=== PATIENT | female | born 1990 | race Caucasian/White ===

== ENCOUNTER 2023-01-30 14:35 | Outpatient (OUT) | payer OTHER, SELFPAY ==
--- NOTE | 2023-01-30 14:36 | US_ITS ---
The [address] [address] Patient Name: MAGI KENNY MRN: [id number] date: 1990 Sex: F Assigned Patient Location: US Current Patient Location: US Accession/Order Number: [id number] Exam Date: 01/30/2023 14:37 Report Date: 01/30/2023 19:32 At the request of: ERI CORRALES Procedure: US OB transvaginal EXAMINATION: US OB transvaginal HISTORY: Positive test COMPARISON: No relevant comparison available. FINDINGS: GESTATIONAL SAC: Present and normal appearing. YOLK SAC: Present and normal appearing. POLE: Present and normal appearing. CARDIAC: Present. UTERUS: Normal size and appearance. OVARIES: Right: Corpus lutein cyst. Left: Normal. CERVIX: 4.9 cm in length and closed. CUL-DE-SAC: Normal. OTHER: Tiny subchorionic hematoma versus sequela of implantation bleeding. AGE BY LMP: 9 weeks 6 days GARCÍA BY LMP: 08/29/2023 AGE BY US CRL: 10 weeks 0 days GARCÍA BY US CRL: 08/28/2023 US/US OB transvaginal IMPRESSION: 1. Single live intrauterine . Electronically authenticated by: ROJELIO GARCÍA Date: 01/30/2023 19:32
== END 2023-01-30 14:36 | disposition home or self-care (01) ==
LOC: US 14:35
PROVIDERS: PCP Family Medicine; Visit Provider Obstetrics & Gynecology
DX: Z34.91 Encounter for supervision of normal pregnancy, unspecified, first trimester (principal); Z3A.10 10 weeks gestation of pregnancy; N92.6 Irregular menstruation, unspecified
CPT/HCPCS: 76817

== ENCOUNTER 2023-02-10 15:44 | Outpatient (OUT) | payer OTHER, SELFPAY ==
[2023-02-10 16:22] LABS: Basophils Absolute Auto 0.1 10^3/uL (0.0-0.1); Basophils Percent Auto 0.8 % (0.2-2.0); Eosinophils Absolute Auto 0.2 10^3/uL (0.0-0.7); Hemoglobin 13.8 g/dL (12.0-16.0); Immature Granulocytes Abs Auto 0.12 10^3/uL (0.00-0.03); Immature Granulocytes Pct Auto 1.1 % (0.0-0.5); Lymphocytes Absolute Auto 2.9 10^3/uL (1.2-3.8); Lymphocytes Percent Auto 25.9 % (20.5-60.0); Mean Corpuscular HGB Conc 34.5 g/dL (29.9-35.2); Mean Corpuscular Hemoglobin 31.9 pg (26.7-34.0); Mean Corpuscular Volume 92.6 fL (81.0-99.0); Mean Platelet Volume 8.6 fL (9.5-13.5); Monocytes Absolute Auto 0.7 10^3/uL (0.3-0.8); Monocytes Percent Auto 5.8 % (1.7-12.0); Neutrophils Absolute Auto 7.3 10^3/uL (1.4-6.5); Neutrophils Percent Auto 64.4 % (43.0-75.0); Platelet Count 317 10^3/uL (150-450); Red Blood Count 4.32 10^6/uL (4.20-5.40); Red Cell Distribution Width 12.3 % (11.0-15.0); White Blood Count 11.2 10^3/uL (4.0-11.0)
[2023-02-10 16:36] LABS: Estimated Average Glucose 100 mg/dL; Glycohemoglobin A1C 5.1 % (4.5-6.2)
[2023-02-10 16:56] LABS: Thyroid Stimulating Hormone 1.565 uIU/mL (0.358-3.740)
[2023-02-12 05:12] LABS: HCV Ab Non Reactive (Non Reactive); HIV Ab/p24 Ag Screen Non Reactive (Non Reactive); Rubella Antibodies, IgG 5.23 index (Immune >0.99)
[2023-02-12 06:12] LABS: HBsAg Screen Negative (Negative)
[2023-02-12 12:09] LABS: Rapid Plasma Reagin, Quant Non Reactive (NonRea<1:1)
== END 2023-02-10 15:45 | disposition home or self-care (01) ==
LOC: LAB 15:45
PROVIDERS: PCP Family Medicine; Visit Provider Obstetrics & Gynecology
DX: N91.2 Amenorrhea, unspecified (principal); Z34.80 Encounter for supervision of other normal pregnancy, unspecified trimester
CPT/HCPCS: 36415; 83036; 84443; 85025; 86592; 86706; 86762; 86803; 86850; 86900; 86901; 87086; 87389

== ENCOUNTER 2023-04-15 18:49 | Outpatient (OUT) | payer OTHER, SELFPAY ==
--- NOTE | 2023-04-15 18:59 | US_ITS ---
[address] [address] Patient Name: MAGI KENNY MRN: [id number] date: 1990 Sex: F Assigned Patient Location: US Current Patient Location: Accession/Order Number: [id number] Exam Date: 04/15/2023 19:06 Report Date: 04/16/2023 07:37 At the request of: ANKUSH KELLY Procedure: US OB anatomy EXAMINATION: US OB anatomy, US OB transvaginal HISTORY: SECOND TRIMESTER Z34.92 COMPARISON: No relevant comparison available. TECHNIQUE: Transabdominal sonographic examination was performed for obstetrical and evaluation. FINDINGS: Number: 1 Heart Rate: not measured Amniotic Fluid Volume: Subjectively normal Placental Location: ANTERIOR, grade 0. Placental edge 3.4 cm from the cervical os Cervix Length: 4.7 cm , closed Normal anatomy: Lateral ventricles, cerebellum, posterior fossa, nose, lips, orbits, four-chamber heart, RVOT, LVOT, diaphragm, stomach, kidneys, abdominal cord insertion, bladder, umbilical arteries, three-vessel cord, extremities Suboptimal visualization: Spine BIOMETRY: BPD: 4.7 cm 20 weeks 2 days , 29% HC: 18.5 cm 20 weeks 6 days, 46% AC: 15.6 cm 20 weeks 5 days, 44% FL: 3.2 cm 19 weeks 6 days, 17% EFW:351.5 grams; 12 ounces, 29% FL/AC: 20.5 FL/BPD: 67.8 HC/AC: 1.2 GESTATIONAL AGE: Age by EDC: 20 weeks 5 days Age by current US: 20 weeks 3 days GARCÍA by current US: 08/30/2023 GARCÍA by EDC: 08/28/2023 US/US OB anatomy IMPRESSION: Suboptimal visualization of the spine Low lying placenta *Reference: [employer] Practice Guideline for the performance of Obstetric Ultrasound Examinations, March 30, 2007. Electronically authenticated by: ABHISHEK PECK Date: 04/16/2023 07:37
--- NOTE | 2023-04-15 19:00 | US_ITS ---
[address] [address] Patient Name: MAGI KENNY MRN: [id number] date: 1990 Sex: F Assigned Patient Location: US Current Patient Location: Accession/Order Number: [id number] Exam Date: 04/15/2023 19:06 Report Date: 04/16/2023 07:37 At the request of: ANKUSH KELLY Procedure: US OB transvaginal EXAMINATION: US OB anatomy, US OB transvaginal HISTORY: SECOND TRIMESTER Z34.92 COMPARISON: No relevant comparison available. TECHNIQUE: Transabdominal sonographic examination was performed for obstetrical and evaluation. FINDINGS: Number: 1 Heart Rate: not measured Amniotic Fluid Volume: Subjectively normal Placental Location: ANTERIOR, grade 0. Placental edge 3.4 cm from the cervical os Cervix Length: 4.7 cm , closed Normal anatomy: Lateral ventricles, cerebellum, posterior fossa, nose, lips, orbits, four-chamber heart, RVOT, LVOT, diaphragm, stomach, kidneys, abdominal cord insertion, bladder, umbilical arteries, three-vessel cord, extremities Suboptimal visualization: Spine BIOMETRY: BPD: 4.7 cm 20 weeks 2 days , 29% HC: 18.5 cm 20 weeks 6 days, 46% AC: 15.6 cm 20 weeks 5 days, 44% FL: 3.2 cm 19 weeks 6 days, 17% EFW:351.5 grams; 12 ounces, 29% FL/AC: 20.5 FL/BPD: 67.8 HC/AC: 1.2 GESTATIONAL AGE: Age by EDC: 20 weeks 5 days Age by current US: 20 weeks 3 days GARCÍA by current US: 08/30/2023 GARCÍA by EDC: 08/28/2023 US/US OB transvaginal IMPRESSION: Suboptimal visualization of the spine Low lying placenta *Reference: [facility] Practice Guideline for the performance of Obstetric Ultrasound Examinations, March 30, 2007. Electronically authenticated by: ABHISHEK PECK Date: 04/16/2023 07:37
== END 2023-04-15 18:50 | disposition home or self-care (01) ==
PROVIDERS: PCP Family Medicine; Visit Provider Physician Assistant
DX: O44.42 Low lying placenta NOS or without hemorrhage, second trimester (principal); Z3A.20 20 weeks gestation of pregnancy
CPT/HCPCS: 76805; 76817

== ENCOUNTER 2023-05-13 16:59 | Outpatient (OUT) | payer OTHER, SELFPAY ==
--- NOTE | 2023-05-13 | US_ITS ---
The [address] [address] Patient Name: MAGI KENNY MRN: [id number] date: 1990 Sex: F Assigned Patient Location: US Current Patient Location: Accession/Order Number: [id number] Exam Date: 05/13/2023 17:38 Report Date: 05/14/2023 22:11 At the request of: ERI CORRALES Procedure: US OB incomplete anatomy EXAM: US OB incomplete anatomy HISTORY: follow up anatomy Z36.2 COMPARISON: Ultrasound OB anatomy 04/15/2023 TECHNIQUE: Transabdominal ultrasound FINDINGS: Presentation: Cephalic Heart rate: 156 bpm Anatomy: Cervical, thoracic, lumbar, and sacral spine demonstrated without appreciable abnormality. GA: 24 weeks 4 days GARCÍA: 08/29/2023 without appreciable anatomy. US/US OB incomplete anatomy IMPRESSION: 1. Single live intrauterine . 2. Adequate visualization of the spine; no appreciable abnormality. Electronically authenticated by: ROJELIO GARCÍA Date: 05/14/2023 22:11
== END 2023-05-13 17:00 | disposition home or self-care (01) ==
LOC: US 16:59
PROVIDERS: PCP Family Medicine; Visit Provider Obstetrics & Gynecology
DX: Z36.2 Encounter for other antenatal screening follow-up (principal)
CPT/HCPCS: 76815

== ENCOUNTER 2023-05-31 08:30 | Outpatient (OUT) | payer OTHER, SELFPAY ==
[2023-05-31 09:48] LABS: Basophils Absolute Auto 0.1 10^3/uL (0.0-0.1); Basophils Percent Auto 0.9 % (0.2-2.0); Eosinophils Absolute Auto 0.4 10^3/uL (0.0-0.7); Eosinophils Percent Auto 2.8 % (0.9-7.0); Hematocrit 37.1 % (36.0-48.0); Hemoglobin 12.1 g/dL (12.0-16.0); Immature Granulocytes Abs Auto 0.38 10^3/uL (0.00-0.03); Immature Granulocytes Pct Auto 2.7 % (0.0-0.5); Lymphocytes Absolute Auto 2.4 10^3/uL (1.2-3.8); Lymphocytes Percent Auto 17.3 % (20.5-60.0); Mean Corpuscular HGB Conc 32.6 g/dL (29.9-35.2); Mean Corpuscular Hemoglobin 32.4 pg (26.7-34.0); Mean Corpuscular Volume 99.2 fL (81.0-99.0); Mean Platelet Volume 8.7 fL (9.5-13.5); Monocytes Absolute Auto 0.8 10^3/uL (0.3-0.8); Monocytes Percent Auto 5.5 % (1.7-12.0); Neutrophils Absolute Auto 9.8 10^3/uL (1.4-6.5); Neutrophils Percent Auto 70.8 % (43.0-75.0); Platelet Count 362 10^3/uL (150-450); Red Blood Count 3.74 10^6/uL (4.20-5.40); Red Cell Distribution Width 12.6 % (11.0-15.0); White Blood Count 13.9 10^3/uL (4.0-11.0)
[2023-05-31 11:06] LABS: Glucose 1 Hour 191 mg/dL
== END 2023-05-31 08:31 | disposition home or self-care (01) ==
LOC: LAB 08:31
PROVIDERS: PCP Family Medicine; Visit Provider Obstetrics & Gynecology
DX: Z34.92 Encounter for supervision of normal pregnancy, unspecified, second trimester (principal)
CPT/HCPCS: 36415; 82950; 85025

== ENCOUNTER 2023-06-07 07:27 | Outpatient (OUT) | payer OTHER, SELFPAY ==
[2023-06-07 07:44] LABS: Glucose Fasting 89 mg/dL (74-106)
[2023-06-07 09:11] LABS: Glucose 1 Hour 188 mg/dL
[2023-06-07 10:18] LABS: Glucose 2 Hour 175 mg/dL
[2023-06-07 11:35] LABS: Glucose 3 Hour 121 mg/dL
== END 2023-06-07 07:28 | disposition home or self-care (01) ==
LOC: LAB 07:27
PROVIDERS: PCP Family Medicine; Visit Provider Obstetrics & Gynecology
DX: O99.810 Abnormal glucose complicating pregnancy (principal)
CPT/HCPCS: 36415; 82951; 82952

== ENCOUNTER 2023-06-16 07:44 | Outpatient (RCR) | payer OTHER, SELFPAY ==
[2023-06-16] MEDS: RHO(D) IMMUNE GLOBULIN 1,500 UNIT SYRINGE 1500 UNIT IM (15:42)
[2023-06-16 15:43] VITALS: BP 121/78; PULSE 96; RESP 18; TEMP 36.8; O2SAT 977
--- NOTE | 2023-06-16 15:44 | PC.NURSE ---
Pt is here for Rhogam injection, she had her blood work completed today. She has received this in previous pregnancies and tolerated well. Patient tolerated injection well and denies any complaints. She was discharged ambulatory.
== END 2023-06-16 16:00 | disposition home or self-care (01) ==
LOC: INF 07:44
PROVIDERS: PCP Family Medicine; Visit Provider Obstetrics & Gynecology
DX: O26.893 Other specified pregnancy related conditions, third trimester (principal); Z67.91 Unspecified blood type, Rh negative; Z3A.00 Weeks of gestation of pregnancy not specified
CPT/HCPCS: 36415; 86850; 86900; 86901; 96372; J2790

== ENCOUNTER 2023-07-15 07:15 | Outpatient (OUT) | payer OTHER, SELFPAY ==
--- OUTSIDE RECORDS SUMMARY | 2023-07-15 07:17 | XMS_ITS | CCD ---
Author Name Unknown Address [address] [place] [address] Organization [facility] Care Team Providers Care Health Information Internship Name Role Phone Mindy GREGORY Prema Primary Care Provider ANTONI ., DR HWANG Attending Unavailable ANTONI ., DR HWANG Consulting Unavailable ANTONI ., DR HWANG Primary Care Unavailable ANTONI ., DR HWANG Admitting Unavailable ANKUSH KELLY Attending Unavailable ANKUSH KELLY Attending Unavailable ANKUSH KELLY Attending Unavailable ERI VALLE Attending Unavailable Allergies Allergy Classification Reported Allergen(s) Allergy Type Date of Onset Reaction(s) Facility (2 sources) Penicillins; Translations: [Penicillins] Propensity to adverse reactions to drug 04-07-2017 [facility] Medications Current Medications Medication Drug Class(es) Dates Sig (Normalized) Sig (Original) ethinyl estradiol 0.035 mg / norgestimate 0.25 mg oral tablet (1 source) Progestin, Estrogen norgestimate -ethinyl estradiol ([place]aren[place]-Linyah) 0.25-35 MG-MCG tablet Take 1 tablet by mouth daily. 0 Active Problems Problem Classification Problem Date Documented Date Episodic/Chronic Immunizations and screening for infectious disease (1 source) Encounter for screening for human papillomavirus (HPV); Translations: [ENC SCREENING HUMAN PAPILLOMAVIRUS] Onset: 09-16-2022 Episodic Nonmalignant breast conditions (1 source) Cyst of right breast; Translations: [Solitary cyst of right breast] Episodic Other screening for suspected conditions (not mental disorders or infectious disease) (4 sources) Encounter for screening for malignant neoplasm of cervix; Translations: [ENC SCREENING MALIG NEOPLASM CERV] Onset: 09-10-2022 Episodic Results Test Name Value Interpretation Reference Range Facil ity PAP ACOG PANEL 2: 30 to 65on 09-19-2022 . . Normal [facility] Comment on above: Result Comment: Performed at: WB Performed By: #### [id number] #### [facility] [address] [address] [address] Eduardo Sandoval Age Gdln ACOG Testing 30-[address] [facility] Comment on above: Performed By: #### [id number] #### [facility] [address] [address] [address] Eduardo Sandoval DIAGNOSIS: Comment Normal [facility] Comment on above: Result Comment: NEGATIVE FOR INTRAEPITHE LIAL LESION OR MALIGNANCY. CELLULAR CHANGES ASSOCIATED WITH INFLAMMATION ARE PRESENT. Performed at: WB Performed By: #### [id number] #### [facility] [address] [address] [address] Eduardo Sandoval HPV Aptima Positive Abnormal Negative [facility] Comment on above: Result Comment: This nucleic acid amplif ication test detects fourteen high-risk HPV types (16,18,31,33,35,39,45,51,52,56,58,59,66,68) without differentiation. Performed at: =G Performed By: #### [id number] #### [facility] [address] [address] [address] Eduardo Sandoval HPV Genotype 16 Negative Normal Negative [facility] Comment on above: Performed By: #### [id number] #### [facility] [address] [address] [address] Eduardo Sandoval HPV Genotype 18,45 Negative Normal Negative [facility] Comment on above: Performed By: #### [id number] #### [facility] [address] [address] [address] Eduardo Sandoval HPV Genotype Reflex Comment Normal [facility] Comment on above: Result Comment: Criteria met, see HPV Ge notype results. Performed at: WB Performed By: #### [id number] #### [facility] [address] [place] [address] Dr. Eduardo Sandoval Methodology: Comment Normal [facility] Comment on above: Result Comment: This liquid based ThinPr ep(R) pap test was screened with the use of an image guided system. Performed at: WB Performed By: #### [id number] #### [facility] [address] [place] [address] Dr. Eduardo Sandoval Note: Comment Normal [facility] Comment on above: Result Comment: The Pap smear is a scree deuce test designed to aid in the detection of premalignant and malignant conditions of the uterine cervix. It is not a diagnostic procedure and should not be used as the sole means of detecting cervical cancer. Both false-positive and false-negative reports do occur. . Performed at: WB Performed By: #### [id number] #### [facility] [address] [place] [address] Dr. Eduardo Sandoval Performed by: Comment Normal [facility] Comment on above: Result Comment: Stephanie Rivera Cytoleigh chnologist Performed at: WB Performed By: #### [id number] #### [facility] [address] [place] [address] Dr. Eduardo Sandoval Specimen adequacy: Comment Normal [facility] Comment on above: Result Comment: Satisfactory for evaluat ion. Endocervical and/or squamous metaplastic cells (endocervical component) are present. Areas of partially obscuring inflammatory exudate are present. Performed at: WB Performed By: #### [id number] #### [facility] [address] [place] [address] Dr. Eduardo Sandoval Vital Signs Date Time Vital Sign Value Performing Clinician Faci lity 09-25-2021 12:49-0400 Body height 160 cm Dulce Coronado MD Work Phone: [facility] 09-25-2021 12:49-0400 Body mass index (BMI) [Ratio] 29.58 kg/m2 Dulce Coronado MD Work Phone: [facility] 09-25-2021 12:49-0400 Body temperature 98.49 [degF] Dulce Coronado MD Work Phone: [facility] 09-25-2021 12:49-0400 Body weight 75.75 kg Dulce Coronado MD Work Phone: [facility] 09-25-2021 12:49-0400 Diastolic blood pressure 70 mm[Hg] Dulce Coronado MD Work Phone: [facility] 09-25-2021 12:49-0400 Heart rate 80 /min Dulce Coroando MD Work Phone: [facility] 09-25-2021 12:49-0400 Systolic blood pressure 131 mm[Hg] Dulce Cornoado MD Work Phone: [facility] Encounters Encounter Date Encounter Type Care Provider Facility Start: 07-08-2023 End: 07-08-2023 ambulatory ANKUSH KELLY Not Available Start: 06-24-2023 End: 06-24-2023 ambulatory ERI VALLE Not Available Start: 06-10-2023 End: 06-10-2023 ambulatory ANKUSH KELLY Not Available Start: 05-27-2023 End: 05-27-2023 ambulatory ANKUSH KELLY Not Available Start: 09-10-2022 End: 09-10-[address] ERI VALLE . Facility: Start: 09-25-2021 End: 09-25-2021 Office outpatient new 30 minutes Dulce Coronado MD Work Phone: [facility] Plastic Surgery Comment on above: Breast cyst, right ( Primary Dx) Plan of Treatment Date Care Activity Detail Author Start: 02-28-2021 Influenza vaccination INFLUENZA VACC INE (#1) [facility] Start: 2010 Screening for malign ant neoplasm of cervix CERVICAL CANCER SCREENING DISCUSSION [facility] Start: 01-23-2008 Third diphtheria, te tanus and acellular pertussis (DTaP) vaccination TDAP (ADULT) [facility] Start: 2007 Tetanus vaccination TETANUS [facility] Start: 01-23-2004 HIV screening HIV SCREENING DISCUSSION [facility] Start: 1994 COVID-19 VACCINE (1) COVID-19 VACCIN E (1) [facility] Start: 1989 Hepatitis C antibody , confirmatory test HEPATITIS C VIRUS SCREENING [facility] Payers Date Payer Category Payer Unknown [id number] 2021 Private Health Insurance AIDAN MEREDITH [id number] 2021-Present [address] [place] [address] [id number] 1989 Unknown [id number] 1990 Unknown [id number] 1990 Unknown [id number] 1989 Unknown [id number] 1989 Unknown [id number] 1960 Unknown [id number] Social History Date Type Detail Facility Start: [facility]-2021 [facility] History of tobacco use Cigarette Smoker A [facility] Start: 09-25-2021 Tobacco use and exposure Smokeless tobacco non-user [facility] Start: 09-25-2021 Alcohol intake Current drinke r of alcohol (finding) [facility] Start: 09-25-2021 History SDOH Alcohol Comment Occasionally [facility] Start: 1990 Sex Assigned At Not on file A [facility] History of Present illness Narrative 09-25-2021 Celeste Jaramillo LPN - 09/25/2021 1:00 PM Hilton Coronado MD - 09/25/2021 1:00 PM EDT Note Date & Type Note Facility 09-25-2021 History of Presen t illness Narrative [facility] Review of Systems: Do you have any of the following: Chills, Fatigue, Fever or Night Sweats: no. Ear pain or eye discharge: no. Hearing loss or visual changes: no. Sore throat or chronic cough: no. Shortness of breath: no. Chest pain, swelling, or heart palpitations: no. Abdominal pain: no. Constipation or diarrhea: no. Heartburn or Nausea: no. Rash or skin problems: no. Dizziness or numbness: no. Headaches or Migraines: no. Seizures: no. Joint pain, joint swelling or muscle weakness: no. Bruise or bleed easily: yes. Any swollen lymph nodes: no. Subjective: Sangita Prather is an 31 y.o. female who presents for evaluation of Right breast infection from nipple piercing. Ductal cyst removal in April of 2021. She states she feels it's infected again. Seeping a creamy green fluid. Allergies Allergen Reactions Penicillins Current Outpatient Medications Medication Sig Dispense Refill norgestimate-ethinyl estradiol ([place]arengo-Linyah) 0.25-35 MG-MCG tablet Take 1 tablet by mouth daily. No current facility-administered medications for this visit. No past medical history on file. Past Surgical History: Procedure Laterality Date BREAST CYST ASPIRATION Right 2020 Family History Problem Relation Age of Onset Heart Disease - Other Maternal Grandfather Heart Disease - Other Paternal Grandfather Social History Socioeconomic History Marital status: Single Spouse name: Not on file Number of children: Not on file Years of education: Not on file Highest education level: Not on file Occupational History Not on file Tobacco Use Smoking status: Not on file Smokeless tobacco: Not on file Substance and Sexual Activity Alcohol use: Not on file Drug use: Not on file Sexual activity: Not on file Other Topics Concern Not on file Social History Narrative Not on file Social Determinants of Health Financial Resource Strain: Not on file Food Insecurity: Not on file Transportation Needs: Not on file Physical Activity: Not on file Stress: Not on file Social Connections: Not on file Intimate Partner Violence: Not on file Housing Stability: Not on file Review of Systems Pertinent items are noted in HPI. General Plastics Review of Systems: Do you have any of the following: Chills, Fatigue, Fever or Night Sweats: no. Ear pain or eye discharge: no. Hearing loss or visual changes: no. Sore throat or chronic cough: no. Shortness of breath: no. Chest pain, swelling, or heart palpitations: no. Abdominal pain: no. Constipation or diarrhea: no. Heartburn or Nausea: no. Rash or skin problems: no. Dizziness or numbness: no. Headaches or Migraines: no. Seizures: no. Joint pain, joint swelling or muscle weakness: no. Bruise or bleed easily: yes. Any swollen lymph nodes: no. Objective: BP 131/70 Pulse 80 Temp 98.5 F (36.9 C) (Temporal) Ht 1.6 m (5' 3 ) Wt 75.8 kg (167 lb) BMI 29.58 kg/m Patient with a healing scar on the superior areola which is still firm to touch. No cystic mass palpable beneath the areola. She has bilateral palpable fibrocystic breast. I suspect she has fibrocystic breasts and is perpetuating the inflammation from continuous expression of fluid from her nipple. I suggested not expressing fluid from the nipple. Warm compresses. Anti-inflammatory agents. She is to avoid contact of the nipple with bacteria load and to blot the nipple once a day with alcohol Indicated more surgery will only create further scar tissue and will begin to distort the architecture of the nipple I indicated she should see improvement by the end of the summer Assessment: Healing incision of right breast and patient has been continuously expressing the nipple Plan: The pt is to call with any further problems or questions, otherwise I will see them back PRN. documented in this encounter [facility] Evaluation note Note Date & Type Note Facility Evaluation note Diagnosis Breast cyst, right- Primary documented in this encounter [facility] Summary Purpose Family History No Family History Records FoundNo Family History Records Found Advance Directives No Advanced Directives Records FoundNo Advanced Directives Records Found Additional Source Comments Reason for Visit (unrecogniz ed section and content) Reason Comments New Patient Right breast infecti on from nipple piercing. Ductal cyst removal in April of 2021. She states she feels it's infected again. Seeping a creamy green fluid. Specialty Diagnoses / Procedures Referred By Reagan ponce Referred To Contact Plastic Surgery Diagnoses Breast pain History of dimpling of breast skin Eri Valle DO [address] [place] [address] Dulce Coronado MD [address] [place] [address] Referral ID Status Reason Start Date Expiration Date V isits Requested Visits Authorized [id number] Pending Review 09/14/2021 10/09/2022 1 1 Care Teams (unrecognized sec tion and content) Health Information Internship Relationship Specialty Start Date End Date MayelinomkarPrema DO [address] [place] [id number] PCP - General Family Medicine 09/25/21 INFORMATION SOURCE (unrecogn ized section and content) DATE CREATED AUTHOR 09/20/2022 [facility] DATE CREATED AUTHOR AUTHOR'S ORGANIZ ATION 07/09/2023 [facility] EPIC FOR RECORDS PERTAINING TO PATIENTS WHO ARE OR HAVE BEEN ENROLLED IN A CHEMICAL DEPENDENCY/SUBSTANCEABUSE PROGRAM, SOME INFORMATION MAY BE OMITTED. This clinical summary was aggregated from multiple sources. Caution should be exercised in using it in the provision of clinical care. This summary normalizes information from multiple sources, and as a consequence, information in this document may materially change the coding, format and clinical context of patient data. In addition, data may be omitted in some cases. CLINICAL DECISIONS SHOULD BE BASED ON THE PRIMARY CLINICAL RECORDS. [employer] provides no warranty or guarantee of the accuracy or completeness of information in this document.
--- NOTE | 2023-07-15 17:00 | US_ITS ---
[address] [address] Patient Name: MAGI KENNY MRN: [id number] date: 1990 Sex: F Assigned Patient Location: US Current Patient Location: Accession/Order Number: [id number] Exam Date: 07/15/2023 17:10 Report Date: 07/16/2023 07:08 At the request of: ANKUSH KELLY Procedure: US OB BPP w non-stress EXAMINATION: US OB BPP w non-stress HISTORY: EXCESSIVE GROWTH AFFECTING O36.63X0 COMPARISON: No relevant comparison available. TECHNIQUE: Ultrasound biophysical profile was performed in the radiology department. non-reactive stress testing was performed by nursing staff in the birthing center. FINDINGS: BREATHING MOVEMENTS: 2.0 GROSS BODY MOVEMENTS: 2.0 TONE: 2.0 QUALITATIVE AMNIOTIC FLUID VOLUME: 2.0 PRESENTATION: CEPHALIC HEART RATE: 150.8 bpm H.B./min AMNIOTIC FLUID VOLUME: 18.6 cm cm GESTATIONAL AGE: 33 weeks 4 days CONCLUSION: Total biophysical profile score: 8.0 Electronically authenticated by: ABHISHEK PECK Date: 07/16/2023 07:08
--- NOTE | 2023-07-15 17:01 | US_ITS ---
[address] [address] Patient Name: MAGI KENNY MRN: [id number] date: 1990 Sex: F Assigned Patient Location: [facility] Current Patient Location: Accession/Order Number: [id number] Exam Date: 07/15/2023 17:10 Report Date: 07/16/2023 07:10 At the request of: ANKUSH KELLY Procedure: US OB growth EXAMINATION: US OB growth HISTORY: EXCESSIVE GROWTH AFFECTING O36.63X0 COMPARISON: No relevant comparison available. FINDINGS: Heart Rate: 150.8 bpm Amniotic Fluid Volume: 18.6 cm Number: 1.0 Position: Cephalic presentation, longitudinal lie Maximum Vertical Pocket: 5.9 cm cm 4.7 cm cm 4.6 cm cm 3.4 cm cm BIOMETRY: BPD: 8.8 cm cm; 35 weeks 3 days; 90% HC: 32.4 cmcm; 36 weeks 5 days , 87% AC: 29.2 cm cm; 33 weeks 2 days, 43% FL: 6.3 cm cm; 32 weeks 5 days; 17.9 % % EFW: 2235.5 grams, 4 lbs. 15 oz., 43% FL/AC: 21.6 FL/BPD: 72.1 HC/AC: 1.1 GESTATIONAL AGE: Age by EDC: 33 weeks 4 days GARCÍA by EDC: 08/29/2023 Age by US: 34 weeks 4 days GARCÍA by US: 08/22/2023 US/US OB growth IMPRESSION: Normal interval growth Electronically authenticated by: ABHISHEK PECK Date: 07/16/2023 07:10
[2023-07-15 17:55] VITALS: BP 119/69; PULSE 89
== END 2023-07-15 18:29 | disposition home or self-care (01) ==
LOC: US 07:15 → FBC 16:59
PROVIDERS: PCP Family Medicine; Visit Provider Physician Assistant
DX: O36.63X0 Maternal care for excessive fetal growth, third trimester, not applicable or unspecified (principal); Z3A.33 33 weeks gestation of pregnancy
CPT/HCPCS: 76816; 76818

== ENCOUNTER 2023-07-18 07:17 | Outpatient (OUT) | payer OTHER, SELFPAY ==
--- OUTSIDE RECORDS SUMMARY | 2023-07-18 07:20 | XMS_ITS | CCD ---
Author Name Unknown Address [address] [place] [address] Organization [facility] Care Team Providers Care Art Editor Name Role Phone Mindy GREGORY Prema Primary Care Provider ANTONI ., DR HWANG Attending Unavailable ANTONI ., DR HWNAG Consulting Unavailable ANTONI ., DR HWANG Primary Care Unavailable ANTONI ., DR HWANG Admitting Unavailable ANKUSH KELLY Attending Unavailable ANKUSH KELLY Attending Unavailable ANKUSH KELLY Attending Unavailable ERI VALLE Attending Unavailable Allergies Allergy Classification Reported Allergen(s) Allergy Type Date of Onset Reaction(s) Facility (2 sources) Penicillins; Translations: [Penicillins] Propensity to adverse reactions to drug 04-07-2017 [facility] Medications Current Medications Medication Drug Class(es) Dates Sig (Normalized) Sig (Original) ethinyl estradiol 0.035 mg / norgestimate 0.25 mg oral tablet (1 source) Progestin, Estrogen norgestimate -ethinyl estradiol ([place]ah) 0.25-35 MG-MCG tablet Take 1 tablet by [...] to 64on 09-19-2022 . . Normal [facility] Comment on above: Result Comment: Performed at: WB Performed By: #### [id number] #### [facility] [address] [address] [address] Eduardo Sandoval Age Gdln ACOG Testing 30-65 Normal [facility] Comment on above: Performed By: #### [id number] #### [facility] [address] [address] [address] Eduardo Sandoval DIAGNOSIS: Comment Normal [facility] Comment on above: Result Comment: NEGATIVE FOR INTRAEPITHE LIAL LESION OR MALIGNANCY. CELLULAR CHANGES ASSOCIATED WITH INFLAMMATION ARE PRESENT. Performed at: WB Performed By: #### [id number] #### [facility] [address] [address] [address] Eduardo Sandoval HPV Aptima Positive Abnormal Negative [facility] Comment on above: Result Comment: This nucleic acid amplif ication test detects fourteen high-risk HPV types (16,18,31,33,35,39,45,51,52,56,58,59,66,68) without differentiation. Performed at: =G Performed By: #### [id number] #### [facility] [address] [address] [address] Eduardo Sandoval HPV Genotype 16 Negative Normal Negative [facility] Comment on above: Performed By: #### [id number] #### [facility] [address] [address] [address] Eduardo Sandoval HPV Genotype 18,45 Negative Normal Negative [facility] Comment on above: Performed By: #### [id number] #### [facility] [address] [address] [address] Eduardo Sandoval HPV Genotype Reflex Comment Normal [facility] Comment on above: Result Comment: Criteria met, see HPV Ge notype results. Performed at: WB Performed By: #### [id number] #### [facility] [address] [place] [address] Dr. Eduardo Sandoval Methodology: Comment Normal [facility] Comment on above: Result Comment: This liquid based ThinPr ep(R) pap test was screened with the use of an image guided system. Performed at: WB Performed By: #### [id number] #### [facility] [address] [place] [address] Dr. Eduardo Sandoval Note: Comment Normal [facility] Comment on above: Result Comment: The Pap smear is a scree deuce test designed to aid in the detection of premalignant and malignant conditions of the uterine cervix. It is not a diagnostic procedure and should not be used as the sole means of detecting cervical cancer. Both false-positive and false-negative reports do occur. . Performed at: WB Performed By: #### [id number] #### [facility] [address] [place] [address] Dr. Eduardo Sandoval Performed by: Comment Normal [facility] Comment on above: Result Comment: Stephanie Rivera Cytoleigh chnologist Performed at: WB Performed By: #### [id number] #### [facility] [address] [place] [address] Dr. Eduardo Sandoval Specimen adequacy: Comment Normal [facility] Comment on above: Result Comment: Satisfactory for evaluat ion. Endocervical and/or squamous metaplastic cells (endocervical component) are present. Areas of partially obscuring inflammatory exudate are present. Performed at: WB Performed By: #### [id number] #### [facility] [address] [place] [address] Dr. Eduardo Sandoval Vital Signs Date Time Vital Sign Value Performing Clinician Faci lity 09-25-2021 12:49-0400 Body height 160 cm Dulce Coronado MD Work Phone: [facility] 09-25-2021 12:49-0400 Body mass index (BMI) [Ratio] 29.58 kg/m2 Dulce Coronado MD Work Phone: [facility] 09-25-2021 12:49-0400 Body temperature 98.49 [degF] Dulce Coronado MD Work Phone: [facility] 09-25-2021 12:49-0400 Body weight 75.75 kg Dulce Coronado MD Work Phone: [facility] 09-25-2021 12:49-0400 Diastolic blood pressure 70 mm[Hg] Dulce Coronado MD Work Phone: [facility] 09-25-2021 12:49-0400 Heart rate 80 /min Dulce Coronado MD Work Phone: [facility] 09-25-2021 12:49-0400 Systolic blood pressure 131 mm[Hg] Dulce Coronado MD Work Phone: [facility] Encounters Encounter Date Encounter Type Care Provider [...] 30 minutes Dulce Coronado MD Work Phone: [facility] Plastic Surgery Comment on above: Breast cyst, right ( Primary Dx) Plan of Treatment Date Care Activity Detail Author Start: 02-28-2021 Influenza vaccination INFLUENZA VACC INE (#1) [facility] Start: 2010 Screening for malign ant neoplasm of cervix CERVICAL CANCER SCREENING DISCUSSION [facility] Start: 01-23-2008 Third diphtheria, te tanus and acellular pertussis (DTaP) vaccination TDAP (ADULT) [facility] Start: 2007 Tetanus vaccination TETANUS [facility] Start: 01-23-2004 HIV screening HIV SCREENING DISCUSSION [facility] Start: 1994 COVID-19 VACCINE (1) COVID-19 VACCIN E (1) [facility] Start: 1989 Hepatitis C antibody , confirmatory test HEPATITIS C VIRUS SCREENING [facility] Payers Date Payer Category Payer Unknown [id number] 2021 Private Health Insurance AIDAN MEREDITH [id number] 2021-Present [address] [place] [address] [id number] 1989 Unknown [id number] 1989 Unknown [id number] 1989 Unknown [id number] 1989 Unknown [id number] 1989 Unknown [id number] 1959 Unknown [id number] Social History Date Type Detail Facility [facility]: [facility] History of tobacco use Cigarette Smoker [facility] Start: 09-25-2021 Tobacco use and exposure Smokeless tobacco non-user [facility] Start: 09-25-2021 Alcohol intake Current drinke r of alcohol (finding) [facility] Start: 09-25-2021 History SDOH Alcohol Comment Occasionally [facility] Start: 1990 Sex Assigned At Not on file [facility] History of Present illness Narrative 09-25-2021 [...] Medications Medication Sig Dispense Refill norgestimate-ethinyl estradiol ([place]-Linyah) 0.25-35 MG-MCG tablet Take 1 tablet by [...] them back PRN. documented in this encounter [facility] Evaluation note Note Date & Type Note Facility Evaluation note Diagnosis Breast cyst, right- Primary documented in this encounter [facility] Summary Purpose Family History No Family History [...] breast skin Eri Valle DO [address] [place] [address] Dulce Coronado MD [address] [place] [address] Referral ID Status Reason Start Date Expiration Date V isits Requested Visits Authorized [id number] Pending Review 09/14/2021 10/09/2022 1 1 Care Teams (unrecognized sec tion and content) Art Editor Relationship Specialty Start Date End Date MayelinomkarPrema DO [address] [place] [id number] PCP - General Family Medicine 09/25/21 INFORMATION SOURCE (unrecogn ized section and content) DATE CREATED AUTHOR 09/20/2022 [facility] DATE CREATED AUTHOR AUTHOR'S ORGANIZ ATION 07/09/2023 [facility] EPIC FOR RECORDS PERTAINING [...] BE BASED ON THE PRIMARY CLINICAL RECORDS. [email or web address] provides no warranty or guarantee of the accuracy or completeness of information in this document.
[2023-07-18 18:11] VITALS: BP 138/62; PULSE 112; RESP 16
[2023-07-18 18:33] VITALS: TEMP 36.7
== END 2023-07-18 18:36 | disposition home or self-care (01) ==
LOC: FBCO 07:18 → FBC 18:05
PROVIDERS: PCP Family Medicine; Visit Provider Obstetrics & Gynecology
DX: O36.63X0 Maternal care for excessive fetal growth, third trimester, not applicable or unspecified (principal)
CPT/HCPCS: 59025

== ENCOUNTER 2023-07-22 07:27 | Outpatient (OUT) | payer OTHER, SELFPAY ==
--- OUTSIDE RECORDS SUMMARY | 2023-07-22 07:30 | XMS_ITS | CCD ---
Author Name Unknown Address [address] [place] [address] Organization [facility] Care Team Providers Care Fitness Plan Coordinator Name Role Phone Mindy GREGORY Prema Primary [...] Propensity to adverse reactions to drug 04-07-2017 [facility] Medications Current Medications Medication Drug Class(es) Dates Sig (Normalized) Sig (Original) ethinyl estradiol 0.035 mg / norgestimate 0.25 mg oral tablet (1 source) Progestin, Estrogen norgestimate -ethinyl estradiol ([place]) 0.25-35 MG-MCG tablet Take 1 tablet by [...] to 64on 09-19-2022 . . Normal [facility] Comment on above: Result Comment: Performed at: WB Performed By: #### [id number] #### [facility] [address] [address] [address] Eduardo Sandoval Age Gdln ACOG Testing 30-65 Normal [facility] Comment on above: Performed By: #### [id number] #### [facility] [address] [address] [address] Eduardo Sandoval DIAGNOSIS: Comment Normal [facility] Comment on above: Result Comment: NEGATIVE FOR INTRAEPITHE LIAL LESION OR MALIGNANCY. CELLULAR CHANGES ASSOCIATED WITH INFLAMMATION ARE PRESENT. Performed at: WB Performed By: #### [id number] #### [facility] [address] [address] [address] Eduardo Sandoval HPV Aptima Positive Abnormal Negative [facility] Comment on above: Result Comment: This nucleic acid amplif ication test detects fourteen high-risk HPV types (16,18,31,33,35,39,45,51,52,56,58,59,66,68) without differentiation. Performed at: =G Performed By: #### [id number] #### [facility] [address] [address] [address] Eduardo Sandoval HPV Genotype 16 Negative Normal Negative [facility] Comment on above: Performed By: #### [id number] #### [facility] [address] [address] [address] Eduardo Sandoval HPV Genotype 18,45 Negative Normal Negative [facility] Comment on above: Performed By: #### [id number] #### [facility] [address] [address] [address] Eduardo Sandoval HPV Genotype Reflex Comment Normal [facility] Comment on above: Result Comment: Criteria met, see HPV Ge notype results. Performed at: WB Performed By: #### [id number] #### [facility] [address] [place] [address] Dr. Eduardo Sandoval Methodology: Comment Normal [facility] Comment on above: Result Comment: This liquid based ThinPr ep(R) pap test was screened with the use of an image guided system. Performed at: WB Performed By: #### [id number] #### [facility] [address] [place] [address] Dr. Eduardo Sandoval Note: Comment Normal [facility] Comment on above: Result Comment: The Pap smear is a scree deuce test designed to aid in the detection of premalignant and malignant conditions of the uterine cervix. It is not a diagnostic procedure and should not be used as the sole means of detecting cervical cancer. Both false-positive and false-negative reports do occur. . Performed at: WB Performed By: #### [id number] #### [facility] [address] [place] [address] Dr. Eduardo Sandoval Performed by: Comment Normal [facility] Comment on above: Result Comment: Stephanie Rivera Cytoleigh chnologist Performed at: WB Performed By: #### [id number] #### [facility] [address] [place] [address] Dr. Eduardo Sandoval Specimen adequacy: Comment Normal [facility] Comment on above: Result Comment: Satisfactory for evaluat ion. Endocervical and/or squamous metaplastic cells (endocervical component) are present. Areas of partially obscuring inflammatory exudate are present. Performed at: WB Performed By: #### [id number] #### [facility] [address] [place] [address] Dr. Eduardo Sandoval Vital Signs Date Time Vital Sign Value Performing Clinician Faci lity 09-25-2021 12:49-0400 Body height 160 cm Dulce Coronado MD Work Phone: [facility] 09-25-2021 12:49-0400 Body mass index (BMI) [Ratio] 29.58 kg/m2 Dulce Coronado MD Work Phone: [facility] 09-25-2021 12:49-0400 Body temperature 98.49 [degF] Dulce Coronado MD Work Phone: [facility] 09-25-2021 12:49-0400 Body weight 75.75 kg Dulce Coronado MD Work Phone: [facility] 09-25-2021 12:49-0400 Diastolic blood pressure 70 mm[Hg] Dulce Coronado MD Work Phone: [facility] 09-25-2021 12:49-0400 Heart rate 80 /min Dulce Coronado MD Work Phone: [facility] 09-25-2021 12:49-0400 Systolic blood pressure 131 mm[Hg] Dulce Coronado MD Work Phone: [facility] Encounters Encounter Date Encounter Type Care [...] 30 minutes Dulce Coronado MD Work Phone: [facility] Plastic Surgery Comment on above: Breast cyst, right ( Primary Dx) Plan of Treatment Date Care Activity Detail Author Start: 02-28-2021 Influenza vaccination INFLUENZA VACC INE (#1) [facility] Start: 2010 Screening for malign ant neoplasm of cervix CERVICAL CANCER SCREENING DISCUSSION [facility] Start: 01-23-2008 Third diphtheria, te tanus and acellular pertussis (DTaP) vaccination TDAP (ADULT) [facility] Start: 2007 Tetanus vaccination TETANUS [facility] Start: 01-23-2004 HIV screening HIV SCREENING DISCUSSION [facility] Start: 1994 COVID-19 VACCINE (1) COVID-19 VACCIN E (1) [facility] Start: 1989 Hepatitis C antibody , confirmatory test HEPATITIS C VIRUS SCREENING [facility] Payers Date Payer Category Payer Unknown [id number] 2021 Private Health Insurance AIDAN MEREDITH [id number] 2021-Present [address] [place] [address] [id number] 1989 Unknown [id number] 1989 Unknown [id number] 1989 Unknown [id number] 1989 Unknown [id number] 1989 Unknown [id number] 1959 Unknown [id number] Social History Date Type Detail Facility [facility]: [facility] History of tobacco use Cigarette Smoker [facility] Start: 09-25-2021 Tobacco use and exposure Smokeless tobacco non-user [facility] Start: 09-25-2021 Alcohol intake Current drinke r of alcohol (finding) [facility] Start: 09-25-2021 History SDOH Alcohol Comment Occasionally [facility] Start: 1990 Sex Assigned At Not on file [facility] History of Present illness Narrative 09-25-2021 [...] Medications Medication Sig Dispense Refill norgestimate-ethinyl estradiol ([place]) 0.25-35 MG-MCG tablet Take 1 tablet by [...] them back PRN. documented in this encounter [facility] Evaluation note Note Date & Type Note Facility Evaluation note Diagnosis Breast cyst, right- Primary documented in this encounter [facility] Summary Purpose Family History No Family [...] breast skin Eri Valle DO [address] [facility] [address] [place] [address] Dulce Coronado MD [address] [place] [address] Referral ID Status Reason Start Date Expiration Date V isits Requested Visits Authorized [id number] Pending Review 09/14/2021 10/09/2022 1 1 Care Teams (unrecognized sec tion and content) Fitness Plan Coordinator Relationship Specialty Start Date End Date MayelinomkarPrema DO [address] [place] [id number] PCP - General Family Medicine 09/25/21 INFORMATION SOURCE (unrecogn ized section and content) DATE CREATED AUTHOR 09/20/2022 [facility] DATE CREATED AUTHOR AUTHOR'S ORGANIZ ATION 07/09/2023 [facility] dical Specialists EPIC FOR RECORDS PERTAINING [...] BE BASED ON THE PRIMARY CLINICAL RECORDS. [employer] provides no warranty or guarantee of the accuracy or completeness of information in this document.
--- NOTE | 2023-07-22 17:10 | US_ITS ---
[address] [address] Patient Name: MAGI KENNY MRN: [id number] date: 1990 Sex: F Assigned Patient Location: [facility] Current Patient Location: Accession/Order Number: [id number] Exam Date: 07/22/2023 17:15 Report Date: 07/23/2023 06:22 At the request of: ANKUSH KELLY Procedure: US OB BPP w non-stress EXAMINATION: US OB BPP w non-stress HISTORY: EXCESSIVE GROWTH AFFECTING [id number] COMPARISON: Ultrasound OB biophysical 07/15/2023 TECHNIQUE: Ultrasound biophysical profile was performed in the radiology department. BREATHING MOVEMENTS: 2.0 GROSS BODY MOVEMENTS: 2.0 TONE: 2.0 QUALITATIVE AMNIOTIC FLUID VOLUME: 2.0 PRESENTATION: CEPHALIC HEART RATE: 130.4 bpm bpm. AMNIOTIC FLUID VOLUME: 17.3 cm GESTATIONAL AGE: 34 weeks 4 days CONCLUSION: Total biophysical profile score 8.0. Electronically authenticated by: ROJELIO GARCÍA Date: 07/23/2023 06:22
[2023-07-22 17:48] VITALS: BP 114/57; PULSE 107
== END 2023-07-22 18:15 | disposition home or self-care (01) ==
LOC: US 07:28 → FBC 16:53
PROVIDERS: PCP Family Medicine; Visit Provider Physician Assistant
DX: O36.63X1 Maternal care for excessive fetal growth, third trimester, fetus 1 (principal); Z3A.34 34 weeks gestation of pregnancy
CPT/HCPCS: 76818

== ENCOUNTER 2023-07-25 07:15 | Outpatient (OUT) | payer OTHER, SELFPAY ==
--- OUTSIDE RECORDS SUMMARY | 2023-07-25 07:19 | XMS_ITS | CCD ---
Author Name Unknown Address [address] [facility] [address] [place] [address] Organization [facility] Care Team Providers Care White Hat Hacker Name Role Phone Mindy GREGORY Prema Primary Care Provider ANTONI ., DR HWANG Attending Unavailable ANTONI ., DR HWANG Consulting Unavailable ANTONI ., DR HWANG Primary Care Unavailable ANTONI ., DR HWANG Admitting Unavailable ANKUSH KELLY Attending Unavailable ERI VALLE Attending Unavailable ANKUSH KELLY Attending Unavailable ANKUSH KELLY Attending Unavailable ERI VALLE Attending Unavailable Allergies Allergy Classification Reported Allergen(s) Allergy Type Date of Onset Reaction(s) Facility (2 sources) Penicillins; Translations: [Penicillins] Propensity to adverse reactions to drug 04-07-2017 [facility] Medications Current Medications Medication Drug Class(es) Dates Sig (Normalized) Sig (Original) ethinyl estradiol 0.035 mg / norgestimate 0.25 mg oral tablet (1 source) Progestin, Estrogen norgestimate -ethinyl estradiol ([place]) 0.25-35 MG-MCG tablet Take 1 tablet by [...] 30 to 65on 09-19-2022 . . Normal [facility] Comment on above: Result Comment: Performed at: WB Performed By: #### [id number] #### [facility] [address] [address] [address] Eduardo Sandoval Age Gdln ACOG Testing 30-65 Normal [facility] Comment on above: Performed By: #### [id number] #### [facility] [address] [address] [address] Eduardo Sandoval DIAGNOSIS: Comment Normal [facility] Comment on above: Result Comment: NEGATIVE FOR INTRAEPITHE LIAL LESION OR MALIGNANCY. CELLULAR CHANGES ASSOCIATED WITH INFLAMMATION ARE PRESENT. Performed at: WB Performed By: #### [id number] #### [facility] [address] [address] [address] Eduardo Sandoval HPV Aptima Positive Abnormal Negative [facility] Comment on above: Result Comment: This nucleic acid amplif ication test detects fourteen high-risk HPV types (16,18,31,33,35,39,45,51,52,56,58,59,66,68) without differentiation. Performed at: =G Performed By: #### [id number] #### [facility] [address] [address] [address] Eduardo Sandoval HPV Genotype 16 Negative Normal Negative [facility] Comment on above: Performed By: #### [id number] #### [facility] [address] [address] [address] Eduardo Sandoval HPV Genotype 18,45 Negative Normal Negative [facility] Comment on above: Performed By: #### [id number] #### [facility] [address] [address] [address] Eduardo Sandoval HPV Genotype Reflex Comment Normal [facility] Comment on above: Result Comment: Criteria met, see HPV Ge notype results. Performed at: WB Performed By: #### [id number] #### [facility] [address] [address] [address] Eduarod Sandoval Methodology: Comment Normal [facility] Comment on above: Result Comment: This liquid based ThinPr ep(R) pap test was screened with the use of an image guided system. Performed at: WB Performed By: #### [id number] #### [facility] [address] [place] [address] Dr. Eduardo Sandoval Note: Comment Normal [facility] Comment on above: Result Comment: The Pap smear is a scree deuce test designed to aid in the detection of premalignant and malignant conditions of the uterine cervix. It is not a diagnostic procedure and should not be used as the sole means of detecting cervical cancer. Both false-positive and false-negative reports do occur. . Performed at: WB Performed By: #### [id number] #### [facility] [address] [place] [address] Dr. Eduardo Sandoval Performed by: Comment Normal [facility] Comment on above: Result Comment: Stephanie Rivera Cytoleigh chnologist Performed at: WB Performed By: #### [id number] #### [facility] [address] [place] [address] Dr. Eduardo Sandoval Specimen adequacy: Comment Normal [facility] Comment on above: Result Comment: Satisfactory for evaluat ion. Endocervical and/or squamous metaplastic cells (endocervical component) are present. Areas of partially obscuring inflammatory exudate are present. Performed at: WB Performed By: #### [id number] #### [facility] [address] [place] [address] Dr. Eduardo Sandoval Vital Signs Date Time Vital Sign Value Performing Clinician Faci lity 09-25-2021 12:49-0400 Body height 160 cm Dulce Coronado MD Work Phone: [facility] 09-25-2021 12:49-0400 Body mass index (BMI) [Ratio] 29.58 kg/m2 Dulce Coronado MD Work Phone: [facility] 09-25-2021 12:49-0400 Body temperature 98.49 [degF] Dulce Coronado MD Work Phone: [facility] 09-25-2021 12:49-0400 Body weight 75.75 kg Dulce Coronado MD Work Phone: [facility] 09-25-2021 12:49-0400 Diastolic blood pressure 70 mm[Hg] Dulce Coronado MD Work Phone: [facility] 09-25-2021 12:49-0400 Heart rate 80 /min Dulce Coronado MD Work Phone: [facility] 09-25-2021 12:49-0400 Systolic blood pressure 131 mm[Hg] Dulce Coronado MD Work Phone: [facility] Encounters Encounter Date Encounter Type Care Provider Facility Start: 07-23-2023 End: 07-23-2023 ambulatory ERI VALLE Not Available Start: 07-08-2023 End: 07-08-2023 ambulatory ANKUSH KELLY Not Available Start: 06-24-2023 End: 06-24-2023 ambulatory ERI VALLE Not Available Start: 06-10-2023 End: 06-10-2023 ambulatory ANKUSH KELLY Not Available Start: 05-27-2023 End: 05-27-2023 ambulatory ANKUSH KELLY Not Available Start: 09-10-2022 End: 09-10-[address] ERI VALLE . Facility: Start: 09-25-2021 End: 09-25-2021 Office outpatient new 30 minutes Dulce Coronado MD Work Phone: [facility] Comment on above: Breast cyst, right ( Primary Dx) Plan of Treatment Date Care Activity Detail Author Start: 02-28-2021 Influenza vaccination INFLUENZA VACC INE (#1) [facility] Start: 2010 Screening for malign ant neoplasm of cervix CERVICAL CANCER SCREENING DISCUSSION [facility] Start: 01-23-2008 Third diphtheria, te tanus and acellular pertussis (DTaP) vaccination TDAP (ADULT) [facility] Start: [address] [facility] Start: 01-23-2004 HIV screening HIV SCREENING DISCUSSION [facility] Start: 1994 COVID-19 VACCINE (1) COVID-19 VACCIN E (1) [facility] Start: 1989 Hepatitis C antibody , confirmatory test HEPATITIS C VIRUS SCREENING [facility] Payers Date Payer Category Payer Unknown [id number] 2021 Private Health Insurance AIDAN MEREDITH [id number] 2021-Present [address] [place] X[place] [id number] 1989 Unknown [id number] 1989 Unknown [id number] 1989 Unknown [id number] .1259 1989 Unknown [id number] .1259 1989 Unknown [id number] .9 1989 Unknown [id number] .1259 1959 Unknown [id number] Social History Date Type Detail Facility [facility]: [facility] History of tobacco use Cigarette Smoker [facility] Start: 09-25-2021 Tobacco use and exposure Smokeless tobacco non-user [facility] Start: 09-25-2021 Alcohol intake Current drinke r of alcohol (finding) [facility] Start: 09-25-2021 History SDOH Alcohol Comment Occasionally [facility] Start: 1990 Sex Assigned At Not on file [facility] History of Present illness Narrative [...] Medications Medication Sig Dispense Refill norgestimate-ethinyl estradiol ([place]) 0.25-35 MG-MCG tablet Take 1 tablet by [...] them back PRN. documented in this encounter [facility] Evaluation note Note Date & Type Note Facility Evaluation note Diagnosis Breast cyst, right- Primary documented in this encounter [facility] Summary Purpose Family History No Family [...] History of dimpling of breast skin Eri Valle, DO [address] [facility] [address] [place] [address] Dulce Coronado MD [address] [place] [address] Referral ID Status Reason Start Date Expiration Date V isits Requested Visits Authorized [id number] Pending Review 09/14/2021 10/09/2022 1 1 Care Teams (unrecognized sec tion and content) White Hat Hacker Relationship Specialty Start Date End Date Prema Guillen DO [address] [place] [address] PCP - General Family Medicine 09/25/21 INFORMATION SOURCE (unrecogn ized section and content) DATE CREATED AUTHOR 09/20/2022 [facility] DATE CREATED AUTHOR AUTHOR'S ORGANIZ ATION 07/24/2023 [facility] dical Specialists [facility] FOR RECORDS PERTAINING TO PATIENTS WHO ARE [...] BE BASED ON THE PRIMARY CLINICAL RECORDS. [facility] [employer] provides no warranty or guarantee of the accuracy or completeness of information in this document.
[2023-07-25 18:09] VITALS: BP 120/56; PULSE 101
== END 2023-07-25 18:47 | disposition home or self-care (01) ==
LOC: FBCO 07:16 → FBC 18:04
PROVIDERS: PCP Family Medicine; Visit Provider Obstetrics & Gynecology
DX: O36.63X0 Maternal care for excessive fetal growth, third trimester, not applicable or unspecified (principal); Z3A.35 35 weeks gestation of pregnancy
CPT/HCPCS: 59025

== ENCOUNTER 2023-07-29 07:40 | Outpatient (OUT) | payer OTHER, SELFPAY ==
--- OUTSIDE RECORDS SUMMARY | 2023-07-29 07:42 | XMS_ITS | CCD ---
Author Name Unknown Address [address] [facility] [address] [place] [address] Organization [facility] Care Team Providers Care Podiatric Surgeon Name Role Phone Mindy GREGORY Prema Primary [...] Propensity to adverse reactions to drug 04-07-2017 [facility] Medications Current Medications Medication Drug Class(es) Dates Sig (Normalized) Sig (Original) ethinyl estradiol 0.035 mg / norgestimate 0.25 mg oral tablet (1 source) Progestin, Estrogen norgestimate -ethinyl estradiol ([place]) 0.25-35 MG-MCG tablet Take 1 tablet by [...] 30 to 65on 09-19-2022 . . Normal [facility] Comment on above: Result Comment: Performed at: WB Performed By: #### [id number] #### [facility] [address] [address] [address] Eduardo Sandoval Age Gdln ACOG Testing 30-65 Normal [facility] Comment on above: Performed By: #### [id number] #### [facility] [address] [address] [address] Eduardo Sandoval DIAGNOSIS: Comment Normal [facility] Comment on above: Result Comment: NEGATIVE FOR INTRAEPITHE LIAL LESION OR MALIGNANCY. CELLULAR CHANGES ASSOCIATED WITH INFLAMMATION ARE PRESENT. Performed at: WB Performed By: #### [id number] #### [facility] [address] [address] [address] Eduardo Sandoval HPV Aptima Positive Abnormal Negative [facility] Comment on above: Result Comment: This nucleic acid amplif ication test detects fourteen high-risk HPV types (16,18,31,33,35,39,45,51,52,56,58,59,66,68) without differentiation. Performed at: =G Performed By: #### [id number] #### [facility] [address] [address] [address] Eduardo Sandoval HPV Genotype 16 Negative Normal Negative [facility] Comment on above: Performed By: #### [id number] #### [facility] [address] [address] [address] Eduardo Sandoval HPV Genotype 18,45 Negative Normal Negative [facility] Comment on above: Performed By: #### [id number] #### [facility] [address] [address] [address] Eduardo Sandoval HPV Genotype Reflex Comment Normal [facility] Comment on above: Result Comment: Criteria met, see HPV Ge notype results. Performed at: WB Performed By: #### [id number] #### [facility] [address] [address] [address] Eduardo Sandoval Methodology: Comment Normal [facility] Comment on above: Result Comment: This liquid based ThinPr ep(R) pap test was screened with the use of an image guided system. Performed at: WB Performed By: #### [id number] #### [facility] [address] [place] [address] Dr. Eduardo Sandoval Note: Comment Normal [facility] Comment on above: Result Comment: The Pap smear is a scree deuce test designed to aid in the detection of premalignant and malignant conditions of the uterine cervix. It is not a diagnostic procedure and should not be used as the sole means of detecting cervical cancer. Both false-positive and false-negative reports do occur. . Performed at: WB Performed By: #### [id number] #### [facility] [address] [place] [address] Dr. Eduardo Sandoval Performed by: Comment Normal [facility] Comment on above: Result Comment: Stephanie Rivera Cytoleigh chnologist Performed at: WB Performed By: #### [id number] #### [facility] [address] [place] [address] Dr. Eduardo Sandoval Specimen adequacy: Comment Normal [facility] Comment on above: Result Comment: Satisfactory for evaluat ion. Endocervical and/or squamous metaplastic cells (endocervical component) are present. Areas of partially obscuring inflammatory exudate are present. Performed at: WB Performed By: #### [id number] #### [facility] [address] [place] [address] Dr. Eduardo Sandoval Vital Signs Date Time Vital Sign Value Performing Clinician Faci lity 09-25-2021 12:49-0400 Body height 160 cm Dulce Coronado MD Work Phone: [facility] 09-25-2021 12:49-0400 Body mass index (BMI) [Ratio] 29.58 kg/m2 Dulce Coronado MD Work Phone: [facility] 09-25-2021 12:49-0400 Body temperature 98.49 [degF] Dulce Coronado MD Work Phone: [facility] 09-25-2021 12:49-0400 Body weight 75.75 kg Dulce Coronado MD Work Phone: [facility] 09-25-2021 12:49-0400 Diastolic blood pressure 70 mm[Hg] Dulce Coronado MD Work Phone: [facility] 09-25-2021 12:49-0400 Heart rate 80 /min Dulce Coronado MD Work Phone: [facility] 09-25-2021 12:49-0400 Systolic blood pressure 131 mm[Hg] Dulce Coronado MD Work Phone: [facility] Encounters Encounter Date Encounter Type Care [...] Dulce Coronado MD Work Phone: [facility] Surgery Comment on above: Breast cyst, right ( Primary Dx) Plan of Treatment Date Care Activity Detail Author Start: 02-28-2021 Influenza vaccination INFLUENZA VACC INE (#1) [facility] Start: 2010 Screening for malign ant neoplasm of cervix CERVICAL CANCER SCREENING DISCUSSION [facility] Start: 01-23-2008 Third diphtheria, te tanus and acellular pertussis (DTaP) vaccination TDAP (ADULT) [facility] Start: 2007 Tetanus vaccination TETANUS [facility] Start: 01-23-2004 HIV screening HIV SCREENING DISCUSSION [facility] Start: 1994 COVID-19 VACCINE (1) COVID-19 VACCIN E (1) [facility] Start: 1989 Hepatitis C antibody , confirmatory test HEPATITIS C VIRUS SCREENING [facility] Payers Date Payer Category Payer Unknown [id number] 2021 Private Health Insurance AIDAN MEREDITH [id number] 2021-Present [address] [place] [id number] 1989 Unknown [id number] 1989 Unknown [id number] .1259 1989 Unknown [id number] [id number] .1259 1989 Unknown [id number] .1259 1989 Unknown [id number] [id number] .9 1989 Unknown [id number] .1259 1959 Unknown [id number] Social History Date Type Detail Facility [facility]: [facility] History of tobacco use Cigarette Smoker [facility] Start: 09-25-2021 Tobacco use and exposure Smokeless tobacco non-user [facility] Start: 09-25-2021 Alcohol intake Current drinke r of alcohol (finding) [facility] Start: 09-25-2021 History SDOH Alcohol Comment Occasionally [facility] Start: 1989 Sex Assigned At Not on file [facility] History of Present illness Narrative 09-25-2021 [...] Medications Medication Sig Dispense Refill norgestimate-ethinyl estradiol ([place]) 0.25-35 MG-MCG tablet Take 1 tablet by [...] them back PRN. documented in this encounter [facility] Evaluation note Note Date & Type Note Facility Evaluation note Diagnosis Breast cyst, right- Primary documented in this encounter [facility] Summary Purpose Family History No Family [...] skin Eri Valle, DO [address] [facility] [address] [place] [address] Dulce Coronado MD [address] [place] [address] Referral ID Status Reason Start Date Expiration Date V isits Requested Visits Authorized [id number] Pending Review 09/14/2021 10/09/2022 1 1 Care Teams (unrecognized sec tion and content) Podiatric Surgeon Relationship Specialty Start Date End Date Prema Guillen DO [address] [place] [address] PCP - General Family Medicine 09/25/21 INFORMATION SOURCE (unrecogn ized section and content) DATE CREATED AUTHOR 09/20/2022 [facility] DATE CREATED AUTHOR AUTHOR'S ORGANIZ ATION 07/24/2023 [facility] dical Specialists [facility] FOR RECORDS PERTAINING TO PATIENTS WHO ARE [...] BE BASED ON THE PRIMARY CLINICAL RECORDS. [facility] [employer] provides no warranty or guarantee of the accuracy or completeness of information in this document.
[2023-07-29 17:21] VITALS: BP 118/69; PULSE 104
--- NOTE | 2023-07-29 17:37 | US_ITS ---
[address] [address] Patient Name: MAGI KENNY MRN: [id number] date: 1990 Sex: F Assigned Patient Location: US Current Patient Location: Accession/Order Number: [id number] Exam Date: 07/29/2023 17:45 Report Date: 07/30/2023 06:28 At the request of: ANKUSH KELLY Procedure: US OB BPP w non-stress EXAMINATION: US OB BPP w non-stress HISTORY: EXCESSIVE GROWTH AFFECTING [id number] COMPARISON: Ultrasound OB biophysical 07/22/2023 TECHNIQUE: Ultrasound biophysical profile was performed in the radiology department. BREATHING MOVEMENTS: 2.0 GROSS BODY MOVEMENTS: 2.0 TONE: 2.0 QUALITATIVE AMNIOTIC FLUID VOLUME: 2.0 PRESENTATION: CEPHALIC HEART RATE: 138.5 bpm bpm. AMNIOTIC FLUID VOLUME: 16.1 cm GESTATIONAL AGE: 35 weeks 4 days CONCLUSION: Total biophysical profile score 8.0. Electronically authenticated by: ROJELIO GARCÍA Date: 07/30/2023 06:28
== END 2023-07-29 18:18 | disposition home or self-care (01) ==
LOC: US 07:45 → FBC 16:54
PROVIDERS: PCP Family Medicine; Visit Provider Physician Assistant
DX: O36.63X1 Maternal care for excessive fetal growth, third trimester, fetus 1 (principal); Z3A.35 35 weeks gestation of pregnancy
CPT/HCPCS: 76818

== ENCOUNTER 2023-08-05 07:22 | Outpatient (OUT) | payer OTHER, SELFPAY ==
--- OUTSIDE RECORDS SUMMARY | 2023-08-05 07:25 | XMS_ITS | CCD ---
Author Name Unknown Address [address] [facility] [address] [place] [address] Organization [facility] Care Team Providers Care Steel Wool Machine Operator Name Role Phone Prema Guillen DO Primary Care Provider ANTONI ., DR HWANG [...] Propensity to adverse reactions to drug 04-07-2017 [facility] Medications Current Medications Medication Drug Class(es) Dates Sig (Normalized) Sig (Original) ethinyl estradiol 0.035 mg / norgestimate 0.25 mg oral tablet (1 source) Progestin, Estrogen norgestimate -ethinyl estradiol (Buffalo-Linyah) 0.25-35 MG-MCG tablet Take 1 tablet by [...] 30 to 65on 09-19-2022 . . Normal [facility] Comment on above: Result Comment: Performed at: WB Performed By: #### [id number] #### [facility] [address] [address] [address] Eduardo Sandoval Age Gdln ACOG Testing 30-65 Normal [facility] Comment on above: Performed By: #### [id number] #### [facility] [address] [address] [address] Eduardo Sandoval DIAGNOSIS: Comment Normal [facility] Comment on above: Result Comment: NEGATIVE FOR INTRAEPITHE LIAL LESION OR MALIGNANCY. CELLULAR CHANGES ASSOCIATED WITH INFLAMMATION ARE PRESENT. Performed at: WB Performed By: #### [id number] #### [facility] [address] [address] [address] Eduardo Sandvoal HPV Aptima Positive Abnormal Negative [facility] Comment on above: Result Comment: This nucleic acid amplif ication test detects fourteen high-risk HPV types (16,18,31,33,35,39,45,51,52,56,58,59,66,68) without differentiation. Performed at: =G Performed By: #### [id number] #### [facility] [address] [address] [address] Eduardo Sandoval HPV Genotype 16 Negative Normal Negative [facility] Comment on above: Performed By: #### [id number] #### [facility] [address] [address] [address] Eduardo Sandoval HPV Genotype 18,45 Negative Normal Negative [facility] Comment on above: Performed By: #### [id number] #### [facility] [address] [address] [address] Eduardo Sandoval HPV Genotype Reflex Comment Normal [facility] Comment on above: Result Comment: Criteria met, see HPV Ge notype results. Performed at: WB Performed By: #### [id number] #### [facility] [address] [address] [address] Eduardo Sandoval Methodology: Comment Normal [facility] Comment on above: Result Comment: This liquid based ThinPr ep(R) pap test was screened with the use of an image guided system. Performed at: WB Performed By: #### [id number] #### [facility] [address] [place] [address] Dr. Eduardo Sandovla Note: Comment Normal [facility] Comment on above: Result Comment: The Pap smear is a scree deuce test designed to aid in the detection of premalignant and malignant conditions of the uterine cervix. It is not a diagnostic procedure and should not be used as the sole means of detecting cervical cancer. Both false-positive and false-negative reports do occur. . Performed at: WB Performed By: #### [id number] #### [facility] [address] [place] [address] Dr. Eduardo Sandoval Performed by: Comment Normal [facility] Comment on above: Result Comment: Stephanie Rivera Cytoleigh chnologist Performed at: WB Performed By: #### [id number] #### [facility] [address] [place] [address] Dr. Eduardo Sandoval Specimen adequacy: Comment Normal [facility] Comment on above: Result Comment: Satisfactory for evaluat ion. Endocervical and/or squamous metaplastic cells (endocervical component) are present. Areas of partially obscuring inflammatory exudate are present. Performed at: WB Performed By: #### [id number] #### [facility] [address] [place] [address] Dr. Eduardo Sandoval Vital Signs Date Time Vital Sign Value Performing Clinician Faci lity 09-25-2021 12:49-0400 Body height 160 cm Dulce Coronado MD Work Phone: [facility] 09-25-2021 12:49-0400 Body mass index (BMI) [Ratio] 29.58 kg/m2 Dulce Coronado MD Work Phone: [facility] 09-25-2021 12:49-0400 Body temperature 98.49 [degF] Dulce Coronado MD Work Phone: [facility] 09-25-2021 12:49-0400 Body weight 75.75 kg Dulce Coronado MD Work Phone: [facility] 09-25-2021 12:49-0400 Diastolic blood pressure 70 mm[Hg] Dulce Coronado MD Work Phone: [facility] 09-25-2021 12:49-0400 Heart rate 80 /min Dulce Coronado MD Work Phone: [facility] 09-25-2021 12:49-0400 Systolic blood pressure 131 mm[Hg] Dulce Coronado MD Work Phone: [facility] Encounters Encounter Date Encounter Type Care Provider [...] 30 minutes Dulce Coronado MD Work Phone: [facility] Plastic Surgery Comment on above: Breast cyst, right ( Primary Dx) Plan of Treatment Date Care Activity Detail Author Start: 02-28-2021 Influenza vaccination INFLUENZA VACC INE (#1) [facility] Start: 2010 Screening for malign ant neoplasm of cervix CERVICAL CANCER SCREENING DISCUSSION [facility] Start: 01-23-2008 Third diphtheria, te tanus and acellular pertussis (DTaP) vaccination TDAP (ADULT) [facility] Start: 2007 Tetanus vaccination TETANUS [facility] Start: 01-23-2004 HIV screening HIV SCREENING DISCUSSION [facility] Start: 1994 COVID-19 VACCINE (1) COVID-19 VACCIN E (1) [facility] Start: 1989 Hepatitis C antibody , confirmatory test HEPATITIS C VIRUS SCREENING [facility] Payers Date Payer Category Payer Unknown [id number] 2021 Private Health Insurance AIDAN MEREDITH [id number] 2021-Present [address] JOSE XIAO [id number] 1989 Unknown [id number] 1989 Unknown [id number] 1989 Unknown [id number] .1259 1989 Unknown [id number] .1259 1989 Unknown [id number] 1989 Unknown [id number] 1959 Unknown [id number] Social History Date Type Detail Facility [facility]: [facility] History of tobacco use Cigarette Smoker A [facility] Start: 09-25-2021 Tobacco use and exposure Smokeless tobacco non-user [facility] Start: 09-25-2021 Alcohol intake Current drinke r of alcohol (finding) [facility] Start: 09-25-2021 History SDOH Alcohol Comment Occasionally [facility] Start: 1990 Sex Assigned At Not on file A [facility] History of Present illness Narrative 09-25-2021 [...] Medications Medication Sig Dispense Refill norgestimate-ethinyl estradiol (Buffalo-Linyah) 0.25-35 MG-MCG tablet Take 1 tablet by [...] them back PRN. documented in this encounter [facility] Evaluation note Note Date & Type Note Facility Evaluation note Diagnosis Breast cyst, right- Primary documented in this encounter [facility] Summary Purpose Family History No Family History [...] skin Eri Valle, DO [address] [facility] [address] [place] [address] Dulce Coronado MD [address] [place] [address] Referral ID Status Reason Start Date Expiration Date V isits Requested Visits Authorized [id number] Pending Review 09/14/2021 10/09/2022 1 1 Care Teams (unrecognized sec tion and content) Steel Wool Machine Operator Relationship Specialty Start Date End Date Prema Guillen DO [address] [place] [address] PCP - General Family Medicine 09/25/21 INFORMATION SOURCE (unrecogn ized section and content) DATE CREATED AUTHOR 09/20/2022 [facility] DATE CREATED AUTHOR AUTHOR'S ORGANIZ ATION 07/24/2023 [facility] dical Specialists [facility] FOR RECORDS PERTAINING TO PATIENTS WHO ARE [...] ON THE PRIMARY CLINICAL RECORDS. [facility] [employer] provides no warranty or guarantee of the accuracy or completeness of information in this document.
--- NOTE | 2023-08-05 17:14 | US_ITS ---
[address] [address] Patient Name: MAGI KENNY MRN: [id number] date: 1990 Sex: F Assigned Patient Location: [facility] Current Patient Location: Accession/Order Number: [id number] Exam Date: 08/05/2023 17:20 Report Date: 08/06/2023 08:00 At the request of: ERI CORRALES Procedure: US OB BPP w non-stress EXAMINATION: US OB BPP w non-stress HISTORY: EXCESSIVE GROWTH AFFECTING [id number] COMPARISON: No relevant comparison available. TECHNIQUE: Ultrasound biophysical profile was performed in the radiology department. non-reactive stress testing was performed by nursing staff in the birthing center. FINDINGS: BREATHING MOVEMENTS: 2.0 GROSS BODY MOVEMENTS: 2.0 TONE: 2.0 QUALITATIVE AMNIOTIC FLUID VOLUME: 2.0 PRESENTATION: CEPHALIC HEART RATE: 156.1 bpm H.B./min AMNIOTIC FLUID VOLUME: 16.0 cm cm GESTATIONAL AGE: 36 weeks 4 days CONCLUSION: Total biophysical profile score: 8.0 Electronically authenticated by: ABHISHEK PECK Date: 08/06/2023 08:00
[2023-08-05 17:59] VITALS: BP 111/69; PULSE 106
[2023-08-05 18:38] VITALS: RESP 16; TEMP 36.2
== END 2023-08-05 19:15 | disposition home or self-care (01) ==
LOC: US 07:22 → FBC 17:02
PROVIDERS: PCP Family Medicine; Visit Provider Obstetrics & Gynecology
DX: O36.63X1 Maternal care for excessive fetal growth, third trimester, fetus 1 (principal); Z3A.36 36 weeks gestation of pregnancy
CPT/HCPCS: 76818

== ENCOUNTER 2023-08-06 20:51 | Outpatient (REF) | payer OTHER, SELFPAY ==
--- OUTSIDE RECORDS SUMMARY | 2023-08-06 20:56 | XMS_ITS | CCD ---
Author Name Unknown Address [address] [facility] [address] [place] [address] Organization [facility] Care Team Providers Care Banquet Director Name Role Phone Prema Guillen DO Primary [...] Propensity to adverse reactions to drug 04-07-2017 [facility] Medications Current Medications Medication Drug Class(es) Dates Sig (Normalized) Sig (Original) ethinyl estradiol 0.035 mg / norgestimate 0.25 mg oral tablet (1 source) Progestin, Estrogen norgestimate -ethinyl estradiol (Upson-Linyah) 0.25-35 MG-MCG tablet Take 1 tablet by [...] 64on 09-19-2022 . . Normal [facility] Comment on above: Result Comment: Performed at: WB Performed By: #### [id number] #### [facility] [address] [address] [address] Eduardo Sandoval Age Gdln ACOG Testing 30-[address] [facility] Comment on above: Performed By: #### [id number] #### [facility] [address] [address] [address] Eduardo Sandoval DIAGNOSIS: Comment Normal [facility] Comment on above: Result Comment: NEGATIVE FOR INTRAEPITHE LIAL LESION OR MALIGNANCY. CELLULAR CHANGES ASSOCIATED WITH INFLAMMATION ARE PRESENT. Performed at: WB Performed By: #### [id number] #### [facility] [address] [address] [address] Eduardo Sandoval HPV Aptima Positive Abnormal Negative [facility] Comment on above: Result Comment: This nucleic acid amplif ication test detects fourteen high-risk HPV types (16,18,31,33,35,39,45,51,52,56,58,59,66,68) without differentiation. Performed at: =G Performed By: #### [id number] #### [facility] [address] [address] [address] Eduardo Sandoval HPV Genotype 16 Negative Normal Negative [facility] Comment on above: Performed By: #### [id number] #### [facility] [address] [address] [address] Eduardo Sandoval HPV Genotype 18,45 Negative Normal Negative [facility] Comment on above: Performed By: #### [id number] #### [facility] [address] [address] [address] Eduardo Sandoval HPV Genotype Reflex Comment Normal [facility] Comment on above: Result Comment: Criteria met, see HPV Ge notype results. Performed at: WB Performed By: #### [id number] #### [facility] [address] [address] [address] Eduardo Sandoval Methodology: Comment Normal [facility] Comment on above: Result Comment: This liquid based ThinPr ep(R) pap test was screened with the use of an image guided system. Performed at: WB Performed By: #### [id number] #### [facility] [address] [place] [address] Dr. Eduardo Sandoval Note: Comment Normal [facility] Comment on above: Result Comment: The Pap smear is a scree deuce test designed to aid in the detection of premalignant and malignant conditions of the uterine cervix. It is not a diagnostic procedure and should not be used as the sole means of detecting cervical cancer. Both false-positive and false-negative reports do occur. . Performed at: WB Performed By: #### [id number] #### [facility] [address] [place] [address] Dr. Eduardo Sandoval Performed by: Comment Normal [facility] Comment on above: Result Comment: Stephanie Rivera Cytoleigh chnologist Performed at: WB Performed By: #### [id number] #### [facility] [address] [place] [address] Dr. Eduardo Sandoval Specimen adequacy: Comment Normal [facility] Comment on above: Result Comment: Satisfactory for evaluat ion. Endocervical and/or squamous metaplastic cells (endocervical component) are present. Areas of partially obscuring inflammatory exudate are present. Performed at: WB Performed By: #### [id number] #### [facility] [address] [place] [address] Dr. Eduardo Sandoval Vital Signs Date Time Vital Sign Value Performing Clinician Faci lity 09-25-2021 12:49-0400 Body height 160 cm Dulce Coronado MD Work Phone: [facility] 09-25-2021 12:49-0400 Body mass index (BMI) [Ratio] 29.58 kg/m2 Dulce Coronado MD Work Phone: [facility] 09-25-2021 12:49-0400 Body temperature 98.49 [degF] Dulce Coronado MD Work Phone: [facility] 09-25-2021 12:49-0400 Body weight 75.75 kg Dulce Coronado MD Work Phone: [facility] 09-25-2021 12:49-0400 Diastolic blood pressure 70 mm[Hg] Dulce Coronado MD Work Phone: [facility] 09-25-2021 12:49-0400 Heart rate 80 /min Dulce Coronado MD Work Phone: [facility] 09-25-2021 12:49-0400 Systolic blood pressure 131 mm[Hg] Dulce Coronado MD Work Phone: [facility] Encounters Encounter Date Encounter Type [...] minutes Dulce Coronado MD Work Phone: [facility] Plastic Surgery Comment on above: Breast cyst, right ( Primary Dx) Plan of Treatment Date Care Activity Detail Author Start: 02-28-2021 Influenza vaccination INFLUENZA VACC INE (#1) [facility] Start: 2010 Screening for malign ant neoplasm of cervix CERVICAL CANCER SCREENING DISCUSSION [facility] Start: 01-23-2008 Third diphtheria, te tanus and acellular pertussis (DTaP) vaccination TDAP (ADULT) [facility] Start: 2007 Tetanus vaccination TETANUS [facility] Start: 01-23-2004 HIV screening HIV SCREENING DISCUSSION [facility] Start: 1994 COVID-19 VACCINE (1) COVID-19 VACCIN E (1) [facility] Start: 1989 Hepatitis C antibody , confirmatory test HEPATITIS C VIRUS SCREENING [facility] Payers Date Payer Category Payer Unknown [id number] 2021 Private Health Insurance AIDAN MEREDITH [id number] 2021-Present [address] [place] [id number] 1989 Unknown [id number] 1989 Unknown [id number] .1259 1989 Unknown [id number] .1259 1989 Unknown [id number] .1259 1989 Unknown [id number] .9 1989 Unknown [id number] 1959 Unknown [id number] Social History Date Type Detail Facility Start: 09-25-[address] History of tobacco use Cigarette Smoker A [facility] Start: 09-25-2021 Tobacco use and exposure Smokeless tobacco non-user [facility] Start: 09-25-2021 Alcohol intake Current drinke r of alcohol (finding) [facility] Start: 09-25-2021 History SDOH Alcohol Comment Occasionally [facility] Start: 1990 Sex Assigned At Not on file A [facility] History of Present illness Narrative 09-25-2021 Celeste [...] Medications Medication Sig Dispense Refill norgestimate-ethinyl estradiol (Upson-Linyah) 0.25-35 MG-MCG tablet Take 1 tablet by [...] them back PRN. documented in this encounter [facility] Evaluation note Note Date & Type Note Facility Evaluation note Diagnosis Breast cyst, right- Primary documented in this encounter [facility] Summary Purpose Family History No [...] breast skin Eri Valle, DO [address] [facility] [address] [place] [address] Dulce Coronado MD [address] [place] [address] Referral ID Status Reason Start Date Expiration Date V isits Requested Visits Authorized [id number] Pending Review 09/14/2021 10/09/2022 1 1 Care Teams (unrecognized sec tion and content) Banquet Director Relationship Specialty Start Date End Date Prema Guillen DO [address] [place] [address] PCP - General Family Medicine 09/25/21 INFORMATION SOURCE (unrecogn ized section and content) DATE CREATED AUTHOR 09/20/2022 [facility] DATE CREATED AUTHOR AUTHOR'S ORGANIZ ATION 07/24/2023 [facility] dical Specialists [facility] FOR RECORDS PERTAINING TO PATIENTS WHO [...] ON THE PRIMARY CLINICAL RECORDS. [facility] [employer] provides no warranty or guarantee of the accuracy or completeness of information in this document.
== END 2023-08-06 20:52 | disposition home or self-care (01) ==
LOC: LAB 20:51
PROVIDERS: PCP Family Medicine; Visit Provider Obstetrics & Gynecology
DX: O36.63X1 Maternal care for excessive fetal growth, third trimester, fetus 1 (principal)
CPT/HCPCS: 87081

== ENCOUNTER 2023-08-08 07:20 | Outpatient (OUT) | payer OTHER, SELFPAY ==
--- OUTSIDE RECORDS SUMMARY | 2023-08-08 07:23 | XMS_ITS | CCD ---
Author Name Unknown Address [address] [facility] [address] [place] [id number] Organization [facility] Care Team Providers Care Unix System Administrator Name Role Phone Mindy GREGORY Prema Primary [...] Propensity to adverse reactions to drug 04-07-2017 [facility] Medications Current Medications Medication Drug Class(es) Dates Sig (Normalized) Sig (Original) ethinyl estradiol 0.035 mg / norgestimate 0.25 mg oral tablet (1 source) Progestin, Estrogen norgestimate -ethinyl estradiol (Calvert-Linyah) 0.25-35 MG-MCG tablet Take 1 tablet by [...] PAP ACOG PANEL 2: 30 to 65on 03-23-2023 . . Normal [facility] Comment on above: Result Comment: Performed at: WB Performed By: #### [id number] #### [facility] [address] [address] [address] Eduardo Sandoval Age Gdln ACOG Testing 30-65 Normal [facility] Comment on above: Performed By: #### [id number] #### [facility] [address] [address] [address] Eduardo Sandoval DIAGNOSIS: Comment Normal [facility] Comment on above: Result Comment: NEGATIVE FOR INTRAEPITHE LIAL LESION OR MALIGNANCY. CELLULAR CHANGES ASSOCIATED WITH INFLAMMATION ARE PRESENT. Performed at: WB Performed By: #### [id number] #### [facility] [address] [place] [address] Dr. Eduardo Sandoval HPV Aptima Positive Abnormal Negative [facility] Comment on above: Result Comment: This nucleic acid amplif ication test detects fourteen high-risk HPV types (16,18,31,33,35,39,45,51,52,56,58,59,66,68) without differentiation. Performed at: =G Performed By: #### [id number] #### [facility] [address] [address] [address] Eduardo Sandoval HPV Genotype 16 Negative Normal Negative [facility] Comment on above: Performed By: #### [id number] #### [facility] [address] [address] [address] Eduardo Sandoval HPV Genotype 18,45 Negative Normal Negative [facility] Comment on above: Performed By: #### [id number] #### [facility] [address] [address] [address] Eduardo Sandoval HPV Genotype Reflex Comment Normal [facility] Comment on above: Result Comment: Criteria met, see HPV Ge notype results. Performed at: WB Performed By: #### [id number] #### [facility] [address] [address] [address] Eduardo Sandoval Methodology: Comment Normal [facility] Comment on above: Result Comment: This liquid based ThinPr ep(R) pap test was screened with the use of an image guided system. Performed at: WB Performed By: #### [id number] #### [facility] [address] [place] [address] Dr. Eduardo Sandoval Note: Comment Normal [facility] Comment on above: Result Comment: The Pap smear is a scree deuce test designed to aid in the detection of premalignant and malignant conditions of the uterine cervix. It is not a diagnostic procedure and should not be used as the sole means of detecting cervical cancer. Both false-positive and false-negative reports do occur. . Performed at: WB Performed By: #### [id number] #### [facility] [address] [place] [address] Dr. Eduardo Sandoval Performed by: Comment Normal [facility] Comment on above: Result Comment: Stephanie Rivera Cytote chnologist Performed at: WB Performed By: #### [id number] #### [facility] [address] [place] [address] Dr. Eduardo Sandoval Specimen adequacy: Comment Normal [facility] Comment on above: Result Comment: Satisfactory for evaluat ion. Endocervical and/or squamous metaplastic cells (endocervical component) are present. Areas of partially obscuring inflammatory exudate are present. Performed at: WB Performed By: #### [id number] #### [facility] [address] [place] [address] Dr. Eduardo Sandoval Vital Signs Date Time Vital Sign Value Performing Clinician Faci lity 09-25-2021 12:49-0400 Body height 160 cm Dulce Coronado MD Work Phone: [facility] 09-25-2021 12:49-0400 Body mass index (BMI) [Ratio] 29.58 kg/m2 Dulce Coronado MD Work Phone: [facility] 09-25-2021 12:49-0400 Body temperature 98.49 [degF] Dulce Coronado MD Work Phone: [facility] 09-25-2021 12:49-0400 Body weight 75.75 kg Dulce Coronado MD Work Phone: [facility] 09-25-2021 12:49-0400 Diastolic blood pressure 70 mm[Hg] Dulce Coronado MD Work Phone: [facility] 09-25-2021 12:49-0400 Heart rate 80 /min Dulce Coronado MD Work Phone: [facility] 09-25-2021 12:49-0400 Systolic blood pressure 131 mm[Hg] Dulce Coronado MD Work Phone: [facility] Encounters Encounter Date Encounter Type Care Provider Facility Start: 08-06-2023 End: 08-06-2023 ambulatory ANKUSH KELLY Not Available Start: 07-23-2023 End: 07-23-2023 ambulatory ERI VALLE Not Available Start: 07-08-2023 End: 07-08-2023 ambulatory ANKUSH KELLY Not Available Start: 06-24-2023 End: 06-24-2023 ambulatory ERI VALLE Not Available Start: 06-10-2023 End: 06-10-2023 ambulatory ANKUSH LETICIA Not Available Start: 05-27-2023 End: 05-27-2023 ambulatory ANKUSH LETICIA Not Available Start: 09-10-2022 End: 09-10-[address] ERI VALLE . Facility: Start: 09-25-2021 End: 09-25-2021 Office outpatient new 30 minutes Dulce Coronado MD Work Phone: [facility] Comment on above: Breast cyst, right ( Primary Dx) Plan of Treatment Date Care Activity Detail Author Start: 02-28-2021 Influenza vaccination INFLUENZA VACC INE (#1) [facility] Start: 2010 Screening for malign ant neoplasm of cervix CERVICAL CANCER SCREENING DISCUSSION [facility] Start: 01-23-2008 Third diphtheria, te tanus and acellular pertussis (DTaP) vaccination TDAP (ADULT) [facility] Start: 2007 Tetanus vaccination TETANUS [facility] Start: 01-23-2004 HIV screening HIV SCREENING DISCUSSION [facility] Start: 1994 COVID-19 VACCINE (1) COVID-19 VACCIN E (1) [facility] Start: 1989 Hepatitis C antibody , confirmatory test HEPATITIS C VIRUS SCREENING [facility] Payers Date Payer Category Payer Unknown [id number] 2021 Private Health Insurance AIDAN MEREDITH [id number] 2021-Present [address] [place] X[place]O [id number] 1989 Unknown [id number] 1989 Unknown [id number] 1989 Unknown [id number] 1989 Unknown [id number] 1989 Unknown [id number] 1989 Unknown [id number] 1989 Unknown [id number] 1959 Unknown [id number] Social History Date Type Detail Facility Start: 09-25-2021 [facility] History of tobacco use Cigarette Smoker [facility] Start: 09-25-2021 Tobacco use and exposure Smokeless tobacco non-user [facility] Start: 09-25-2021 Alcohol intake Current drinke r of alcohol (finding) [facility] Start: 09-25-2021 History SDOH Alcohol Comment Occasionally [facility] Start: 1990 Sex Assigned At Not on file A [facility] History of Present illness Narrative 09-25-2021 Celeste [...] Medications Medication Sig Dispense Refill norgestimate-ethinyl estradiol (Calvert-Linyah) 0.25-35 MG-MCG tablet Take 1 tablet by [...] them back PRN. documented in this encounter [facility] Evaluation note Note Date & Type Note Facility Evaluation note Diagnosis Breast cyst, right- Primary documented in this encounter [facility] Summary Purpose Family History No [...] breast skin Eri Valle DO [address] [facility] [address] [place] [address] Dulce Coronado MD [address] [place] [address] Referral ID Status Reason Start Date Expiration Date V isits Requested Visits Authorized [id number] Pending Review 09/14/2021 10/09/2022 1 1 Care Teams (unrecognized sec tion and content) Unix System Administrator Relationship Specialty Start Date End Date Prema Guillen DO [address] [place] [address] PCP - General Family Medicine 09/25/21 INFORMATION SOURCE (unrecogn ized section and content) DATE CREATED AUTHOR 09/20/2022 [facility] DATE CREATED AUTHOR AUTHOR'S ORGANIZ ATION 08/07/2023 [facility] Special[facility] EPIC FOR RECORDS PERTAINING TO [...] BE BASED ON THE PRIMARY CLINICAL RECORDS. [employer] provides no warranty or guarantee of the accuracy or completeness of information in this document.
[2023-08-08 18:07] VITALS: BP 125/75; PULSE 99
== END 2023-08-08 18:35 | disposition home or self-care (01) ==
LOC: FBCO 07:20 → FBC 18:03
PROVIDERS: PCP Family Medicine; Visit Provider Obstetrics & Gynecology
DX: O36.63X1 Maternal care for excessive fetal growth, third trimester, fetus 1 (principal)
CPT/HCPCS: 59025

== ENCOUNTER 2023-08-12 07:15 | Outpatient (OUT) | payer OTHER, SELFPAY ==
--- OUTSIDE RECORDS SUMMARY | 2023-08-12 07:17 | XMS_ITS | CCD ---
Author Name Unknown Address [address] [facility] [address] [place] [address] Organization [facility] Care Team Providers Care Bobbin Cleaner Name Role Phone Prema Guillen DO Primary Care Provider ANTONI ., DR HWANG Attending Unavailable ANTONI ., DR HWANG Consulting Unavailable ANTONI ., DR HWANG Primary Care Unavailable ANTONI ., DR HWANG Admitting Unavailable MONIQUE KELLY Attending Unavailable REI VALLE Attending Unavailable MONIQUE KELLY Attending Unavailable MONIQUE KELLY Attending Unavailable MONIQUE KELLY Attending Unavailable ERI VALLE Attending Unavailable Prema Guillen DO Primary Care Provider Allergies Allergy Classification Reported Allergen(s) Allergy Type Date of Onset Reaction(s) Facility (3 sources) Penicillins; Translations: [Penicillins] Propensity to adverse reactions to drug 7 [facility] (1 source) Benzathine penicillin - chemical Propensity to adverse reactions 3 [facility] Medications Current Medications Medication Drug Class(es) Dates Sig (Normalized) Sig (Original) Blood Glucose Monitoring Suppl (Blood Glucose Monitor System) w/Device kit (1 source) Start: 06-10-2023 Blood Glucose Monitoring Suppl (Blood Glucose Monitor System) w/Device kit Indications: Gestational diabetes mellitus (GDM) in third trimester, gestational diabetes method of control unspecified 1 kit in the morning. 1 kit 0 06/10/2023 Active Blood Glucose Monitoring Suppl (D-Care Glucometer) w/Device kit (1 source) Start: 06-11-2023 End: 06-10-2024 Blood Glucose Monitoring Suppl (D-Care Glucometer) w/Device kit Indications: Gestational diabetes mellitus (GDM), antepartum, gestational diabetes method of control unspecified , Elevated glucose tolerance test 1 kit in the morning. Use four times daily to check FSBS. In the morning prior to breakfast & 1 hour after each meal for a total of 4times daily.. 1 kit 0 06/11/2023 06/10/2024 Active ethinyl estradiol 0.035 mg / norgestimate 0.25 mg oral tablet (1 source) Progestin, Estrogen norgestimate-ethin yl estradiol (Hancock-Linyah) 0.25-35 MG-MCG tablet Take 1 tablet by mouth daily. 0 Active isopropyl alcohol 0.7 ml/ml medicated pad (2 sources) Start: 07-10-2023 Alcohol Swabs (Alcohol Prep) 70 % pads USE DIRECTED FOUR TIMES DAILY 0 07/10/2023 Active Start: 06-10-2023 Alcohol Swabs pads Indications: Gestational diabetes mellitus (GDM) in third trimester, gestational diabetes method of control unspecified 1 Pad in the morning and 1 Pad at noon and 1 Pad in the evening and 1 Pad before bedtime. 120 each 3 06/10/2023 Active MV-Min-Fe Fum-FA-DH A ( 1 PO) (1 source) MV-Min- Fe Fum-FA-DHA ( 1 PO) Take by mouth. 0 Active Problems Problem Classification Problem Date Documented Date Episodic/Chronic Immunizations and screening for infectious disease (1 source) Encounter for screening for human papillomavirus (HPV); Translations: [ENC SCREENING HUMAN PAPILLOMAVIRUS] Onset: 09-16-2022 Episodic Nonmalignant breast conditions (1 source) Cyst of right breast; Translations: [Solitary cyst of right breast] Episodic Other complications of (1 source) RhD negative; Translations: [Other specified related conditions, unspecified trimester] Onset: 06-24-2023 06-24-2023 Episodic Other and delivery including normal (2 sources) Third trimester ; Translations: [Encounter for supervision of normal , unspecified, third trimester] Onset: 06-24-2023 07-31-2023 Episodic Other screening for suspected conditions (not mental disorders or infectious disease) (4 sources) Encounter for screening for malignant neoplasm of cervix; Translations: [ENC SCREENING MALIG NEOPLASM CERV] Onset: 09-10-2022 Episodic Results Test Name Value Interpretation Reference Range Facility Urinalysis macro (dipstick) panel (U)on 08-06-2023 Bilirubin, UA Positive Negative - 4(70) +++ mg/dL [facility] Blood, UA Positive Negative - 50 Farooq/mcL [facility] Clarity, UA Clear [facility] Color, UA Yellow [facility] Glucose, UA Negative Negative - 1999(110) ++++ mg/dL [facility] Interpretation and review of laboratory results Abnormal [facility] Ketones, UA Positive Negative - 160(16) ++++ mg/dL [facility] Leukocytes, UA Positive Negative - 500+++ Mir/mcL [facility] Nitrite, UA Negative Negative - Positive [facility] pH, UA 5.5 5 - 9 [facility] e Protein, UA Positive Negative - 1999(20) ++++ mg/dL [facility] Spec Grav, UA 1.030 1 - 1.03 [facility] Urobilinogen, UA 1.0 0.2 - 12 mg/dL [facility] PAP ACOG PANEL 2: 30 to 65on 09-19-2022 . . Normal [facility] Comment on above: Result Comment: Perf ormed at: WB Performed By: #### [id number] #### [facility] [address] [place] [address] Dr. Eduardo Sandoval Age Gdln ACOG Testing 30-65 Normal [facility] Comment on above: Performed By: #### [id number] #### [facility] [address] [place] [address] Dr. Eduardo Sandoval DIAGNOSIS: Comment Normal [facility] Comment on above: Result Comment: NEGA TIVE FOR INTRAEPITHELIAL LESION OR MALIGNANCY. CELLULAR CHANGES ASSOCIATED WITH INFLAMMATION ARE PRESENT. Performed at: WB Performed By: #### [id number] #### [facility] [address] [address] [address] Eduardo Sandoval HPV Aptima Positive Abnormal Negative [facility] Comment on above: Result Comment: This nucleic acid amplification test detects fourteen high-risk HPV types (16,18,31,33,35,39,45,51,52,56,58,59,66,68) without differentiation. Performed at: =G Performed By: #### [id number] #### [facility] [address] [address] [address] Eduardo Sandoval HPV Genotype 16 Negative Normal Negative [facility] Comment on above: Performed By: #### [id number] #### [facility] [address] [address] [address] Eduardo Sandoval HPV Genotype 18,45 Negative Normal Negative [facility] Comment on above: Performed By: #### [id number] #### [facility] [address] [address] [address] Eduardo Sandoval HPV Genotype Reflex Comment Normal [facility] Comment on above: Result Comment: Pietro dillon, see HPV Genotype results. Performed at: WB Performed By: #### [id number] #### [facility] [address] [place] [address] Dr. Eduardo Sandoval Methodology: Comment Normal [facility] Comment on above: Result Comment: This liquid based ThinPrep(R) pap test was screened with the use of an image guided system. Performed at: WB Performed By: #### [id number] #### [facility] [address] [place] [address] Dr. Eduardo Sandoval Note: Comment Normal [facility] Comment on above: Result Comment: The Pap smear is a screening test designed to aid in the detection of premalignant and malignant conditions of the uterine cervix. It is not a diagnostic procedure and should not be used as the sole means of detecting cervical cancer. Both false-positive and false-negative reports do occur. . Performed at: WB Performed By: #### [id number] #### [facility] [address] [place] [address] Dr. Eduardo Sandoval Performed by: Comment Normal [facility] Comment on above: Result Comment: Zabrina Rivera, Tapper Operator Performed at: WB Performed By: #### [id number] #### [facility] [address] [place] [address] Dr. Eduardo Sandoval Specimen adequacy: Comment Normal [facility] Comment on above: Result Comment: Sati sfactory for evaluation. Endocervical and/or squamous metaplastic cells (endocervical component) are present. Areas of partially obscuring inflammatory exudate are present. Performed at: WB Performed By: #### [id number] #### [facility] [address] [place] [address] Dr. Eduardo Sandoval Vital Signs Date Time Vital Sign Value Performing Clinician Facility 08-06-2023 10:26-0500 Body mass index (BMI) [Ratio] 34.86 kg/m2 Monique Kelly PA Work Phone: [facility] 08-06-2023 10:26-0500 Body weight 89.27 kg Monique Kelly PA Work Phone: [facility] 08-06-2023 10:26-0500 Diastolic blood pressure 70 mm[Hg] Monique Kelly PA Work Phone: [facility] 08-06-2023 10:26-0500 Systolic blood pressure 114 mm[Hg] Monique Kelly PA Work Phone: [facility] 09-25-2021 12:49-0400 Body height 160 cm Dulce Coronado MD Work Phone: [facility] 09-25-2021 12:49-0400 Body mass index (BMI) [Ratio] 29.58 kg/m2 Dulce Coronado MD Work Phone: [facility] 09-25-2021 12:49-0400 Body temperature 98.49 [degF] Dulce Coronado MD Work Phone: [facility] 09-25-2021 12:49-0400 Body weight 75.75 kg Dulce Coronado MD Work Phone: [facility] 09-25-2021 12:49-0400 Diastolic blood pressure 70 mm[Hg] Dulce Coronado MD Work Phone: [facility] 09-25-2021 12:49-0400 Heart rate 80 /min Dulce Coronado MD Work Phone: [facility] 09-25-2021 12:49-0400 Systolic blood pressure 131 mm[Hg] Dulce Coronado MD Work Phone: [facility] Encounters Encounter Date Encounter Type Care Provider Facility Start: 08-06-2023 End: 08-06-2023 ambulatory MONIQUE KELLY Not Available Start: 08-06-2023 End: 08-06-2023 flow sheet Monique FAUSTIN Work Phone: [facility] Comment on above: Third trimester preg leo Start: 07-23-2023 End: 07-23-2023 ambulatory ERI ANTONI Not Available Start: 07-08-2023 End: 07-08-2023 ambulatory MONIQUE KELLY Not Available Start: 06-24-2023 End: 06-24-2023 ambulatory ERI ANTONI Not Available Start: 06-10-2023 End: 06-10-2023 ambulatory MONIQUE KELLY Not Available Start: 05-27-2023 End: 05-27-2023 ambulatory MONIUQE KELLY Not Available Start: 09-10-2022 End: 09-10-[address] ERI VALLE . Facility: Start: 09-25-2021 End: 09-25-2021 Office outpatient new 30 minutes Dulce Coronado MD Work Phone: [facility] Comment on above: Breast cyst, right ( Primary Dx) Procedures Date Procedure Procedure Detail Performing Clinician Start: 08-06-2023 Urnls dip stick/tabl et rgnt non-auto w/o micrscp Eri Valle DO Work Phone: Plan of Treatment Date Care Activity Detail Author Start: 09-17-2023 End: 09-17-2023 Patient encounter procedure 09/17/2023 4:00 PM EDT Office Visit [facility] [address] [place] [address] Eri Valle, DO [address] [place] [address] [facility] Start: 08-13-2023 End: 08-13-2023 Patient encounter procedure 08/13/2023 2:00 PM EST Routine [facility] [address] [place] [address] Eri Valle, DO [address] [place] [address] [place] [address] [facility] Start: 02-28-2021 Influenza vaccination INFLUENZA VACC INE (#1) [facility] Start: 2010 Screening for malign ant neoplasm of cervix CERVICAL CANCER SCREENING DISCUSSION [facility] Start: 01-23-2008 Third diphtheria, tetanus and acellular pertussis (DTaP) vaccination TDAP (ADULT) [facility] Start: 2007 Tetanus vaccination TETANUS [facility] Start: 01-23-2004 HIV screening HIV SCREENING DISCUSSION [facility] Start: 1994 COVID-19 VACCINE (1) COVID-19 VACCIN E (1) [facility] Start: 1989 Hepatitis C antibody , confirmatory test HEPATITIS C VIRUS SCREENING [facility] GBS swab, PCR GBS swab, PCR La b Routine Third trimester Ordered: 08/06/2023 [facility] Work Phone: Comment on above: Ordered: 08/06/2023 Payers Date Payer Category Payer Unknown [id number] 2022 Unknown [place] [id number] 2022-Present [address] [address] [place] [address] [id number] 2021 Private Health Insurance AETKALPANA MEREDITH [id number] 2021-Present [address] [place] [address] [id number] 1989 Unknown [id number] 1989 Unknown [id number] 1989 Unknown [id number] 1989 Unknown [id number] 1989 Unknown [id number] 1989 Unknown [id number] 1989 Unknown [id number] 1959 Unknown [id number] Social History Date Type Detail Facility Start: 09-25-2021 [facility] History of tobacco use Cigarette Smoker [facility] Start: 09-25-2021 Tobacco use and exposure Smokeless tobacco non-user [facility] Start: 09-25-2021 End: 08-06-2023 Alcohol intake Current drinker of alcohol (finding) [facility] Start: 09-25-2021 History SDOH Alcohol Comment Occasionally [facility] Start: 1990 Sex Assigned At Not on file [facility] Start: 04-15-2023 Tobacco smoking stat [facility] Never smoked tobacco [facility] Start: 04-15-2023 History of Social function [facility] Start: 04-15-2023 Tobacco use panel [facility] Start: 12-06-2022 [facility] Equipment Procedure Code Equipment Code Equipment Origin al Text Equipment Identifier Dates 1 each by Other route in the morning and 1 each at noon and 1 each in the evening and 1 each before bedtime. Use as instructed. [id number] Start: 06-10-2023 End: 07-04-2024 History of Present illness Narrative 08-06-2023 ROXIE Smith - 08/06/2023 10:10 AM EST Note Date & Type Note Facility 08-06-2023 History of Presen t illness Narrative Reason for Appointment: Patient ID: Sangita Kenny is a 33 y.o. female who presents for Routine Visit Patient presents today for Return OB appointment. Current Medications: has a current medication list which includes the following prescription(s): alcohol prep, alcohol swabs, blood glucose monitor system, d-care glucometer, glucose blood, and mv-min-fe fum-fa-dha. 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 HENT: Negative. Eyes: Negative. Respiratory: Negative. Cardiovascular: Negative. Gastrointestinal: Negative. Genitourinary: Negative. Musculoskeletal: Negative. Skin: Negative. Neurological: Negative. All other systems reviewed and are negative. Hematological: Negative. Endocrine: Negative. Allergic/Immunologic: Negative. Objective Physical Exam Constitutional: Appearance: Normal appearance. She is well-developed. Cardiovascular: Rate and Rhythm: Normal rate and regular rhythm. Pulmonary: Effort: Pulmonary effort is normal. Breath sounds: Normal breath sounds. Abdominal: General: Bowel sounds are normal. There is no distension. Palpations: Abdomen is soft. Tenderness: There is no abdominal tenderness. There is no guarding or rebound. Musculoskeletal: General: No swelling. Normal range of motion. Right lower leg: No edema. Left lower leg: No edema. Neurological: Mental Status: She is alert and oriented to person, place, and time. Skin: General: Skin is warm and dry. Psychiatric: Mood and Affect: Mood normal. Behavior: Behavior normal. Vitals and nursing note reviewed. Exam conducted with a abstract writer present. Vitals: Estimated body mass index is 34.86 kg/m as calculated from the following: Height as of 3/14/23: 5' 3 . Weight as of this encounter: 196 lb 12.8 oz. BP: 114/70 Patient's last menstrual period was 11/22/2022. Assessment/Plan Encounter Diagnosis Name Primary? Third trimester Patient is doing well but has complaints of being tired and having maternal discomfort due to . Patient verbalized frequent movement and was instructed to perform kick counts three times per day. labor precautions were given, LARC consent was signed/declined, and GBS was obtained. Cervical check was performed and patient is 0cm dilated. Follow Up: Patient is to return to office in 1 week for routine OB apptment Documented by Charleen Reyes LPN on behalf of: ROXIE Smith documented in this encounter [facility] History of Present illness Narrative 09-25-2021 Celeste Jaramillo LPN - 09/25/2021 1:00 PM EDTTagustin Coronado MD - 09/25/2021 1:00 PM EDT [...] Any swollen lymph nodes: no. Subjective: Sangita Kenny is an 31 y.o. female who presents for evaluation of Right breast infection from nipple piercing. Ductal cyst removal in April of 2021. She states she feels it's infected again. Seeping a creamy green fluid. Allergies Allergen Reactions Penicillins Current Outpatient Medications Medication Sig Dispense Refill norgestimate-ethinyl estradiol (Hancock-Linyah) 0.25-35 MG-MCG tablet Take 1 tablet by [...] them back PRN. documented in this encounter [facility] Evaluation note Note Date & Type Note Facility Evaluation note Diagnosis Breast cyst, right- Primary documented in this encounter [facility] Evaluation note Note Date & Type Note Facility Evaluation note Diagnosis Third trimester state, incidental documented in this encounter [facility] Summary Purpose Family History No Family History [...] breast skin Eri Valle DO [address] [facility] [address] [place] [address] Dulce Coronado MD [address] [place] [address] Referral ID Status Reason Start Date Expiration Date V isits Requested Visits Authorized [id number] Pending Review 09/14/2021 10/09/2022 1 1 Reason Comments Routine Visit Care Teams (unrecognized sec tion and content) Bobbin Cleaner Relationship Specialty Start Date End Date Prema Guillen DO [address] [place] [address] PCP - General Family Medicine 09/25/21 Bobbin Cleaner Relationship Specialty Start Date End Date Prema Guillen [address] [place] [address] PCP - General Family Medicine 12/23/22 INFORMATION SOURCE (unrecogn ized section and content) DATE CREATED AUTHOR 09/20/2022 [facility] pital DATE CREATED AUTHOR AUTHOR'S CRISTIANOIZ ATION 08/07/2023 [facility] FOR RECORDS PERTAINING TO PATIENTS WHO [...] BE BASED ON THE PRIMARY CLINICAL RECORDS. [facility] [employer] provides no warranty or guarantee of the accuracy or completeness of information in this document.
[2023-08-12 17:06] VITALS: BP 131/66; PULSE 95
--- NOTE | 2023-08-12 17:31 | US_ITS ---
[address] [address] Patient Name: MAGI KENNY MRN: [id number] date: 1990 Sex: F Assigned Patient Location: [facility] Current Patient Location: Accession/Order Number: [id number] Exam Date: 08/12/2023 17:40 Report Date: 08/13/2023 07:17 At the request of: ERI CORRALES Procedure: US OB BPP w non-stress EXAMINATION: US OB BPP w non-stress HISTORY: EXCESSIVE GROWTH AFFECTING O26.63X0 COMPARISON: Ultrasound OB biophysical to 624 TECHNIQUE: Ultrasound biophysical profile was performed in the radiology department. BREATHING MOVEMENTS: 2.0 GROSS BODY MOVEMENTS: 2.0 TONE: 2.0 QUALITATIVE AMNIOTIC FLUID VOLUME: 2.0 PRESENTATION: CEPHALIC HEART RATE: 177.6 bpm bpm. AMNIOTIC FLUID VOLUME: 14.2 cm GESTATIONAL AGE: 37 weeks 4 days CONCLUSION: Total biophysical profile score 8.0. Electronically authenticated by: ROJELIO GARCÍA Date: 08/13/2023 07:17
== END 2023-08-12 18:00 | disposition home or self-care (01) ==
LOC: US 07:16 → FBC 17:00
PROVIDERS: PCP Family Medicine; Visit Provider Obstetrics & Gynecology
DX: O36.63X1 Maternal care for excessive fetal growth, third trimester, fetus 1 (principal); Z3A.37 37 weeks gestation of pregnancy
CPT/HCPCS: 76818

== ENCOUNTER 2023-08-15 07:40 | Outpatient (OUT) | payer OTHER, SELFPAY ==
--- OUTSIDE RECORDS SUMMARY | 2023-08-15 07:46 | XMS_ITS | CCD ---
Author Name Unknown Address [address] [facility] [address] [place] [address] Organization [facility] Care Team Providers Care Territory Account Representative Name Role Phone Prema Guillen DO Primary Care Provider ANTONI ., DR HWANG Attending Unavailable ANTONI ., DR HWANG Consulting Unavailable ANTONI ., DR HWANG Primary Care Unavailable ANTONI ., DR HWANG Admitting Unavailable MONIQUE KELLY Attending Unavailable ERI VALLE Attending Unavailable MONIQUE KELLY Attending Unavailable MONIQUE KELLY Attending Unavailable MONIQUE KELLY Attending Unavailable ERI VALLE Attending Unavailable Prema Guillen DO Primary Care Provider Allergies Allergy Classification Reported Allergen(s) Allergy Type Date of Onset Reaction(s) Facility (3 sources) Penicillins; Translations: [Penicillins] Propensity to adverse reactions to drug 7 [facility] (1 source) Benzathine penicillin - chemical [...] (1 source) Progestin, Estrogen norgestimate-ethin yl estradiol (Barnwell-Linyah) 0.25-35 MG-MCG tablet Take 1 tablet by [...] UA Positive Negative - 4(70) +++ mg/dL [facility] Blood, UA Positive Negative - 50 Farooq/mcL [facility] Clarity, UA Clear [facility] Color, UA Yellow [facility] Glucose, UA Negative Negative - 1999(110) ++++ mg/dL [facility] Interpretation and review of laboratory results Abnormal [facility] Ketones, UA Positive Negative - 160(16) ++++ mg/dL [facility] Leukocytes, UA Positive Negative - 500+++ Mir/mcL [facility] Nitrite, UA Negative Negative - Positive [facility] pH, UA 5.5 5 - 9 [facility] e Protein, UA Positive Negative - 1999(20) ++++ mg/dL [facility] Spec Grav, UA 1.030 1 - 1.03 [facility] Urobilinogen, UA 1.0 0.2 - 12 mg/dL [facility] PAP ACOG PANEL 2: 30 to 65on 09-19-2022 . . Normal [facility] Comment on above: Result Comment: Perf ormed at: WB Performed By: #### [id number] #### [facility] [address] [place] [address] Dr. Eduardo Sandoval Age Gdln ACOG Testing 30-65 Normal [facility] Comment on above: Performed By: #### [id number] #### [facility] [address] [place] [address] Dr. Eduardo Sandoval DIAGNOSIS: Comment Normal [facility] Comment on above: Result Comment: NEGA TIVE FOR INTRAEPITHELIAL LESION OR MALIGNANCY. CELLULAR CHANGES ASSOCIATED WITH INFLAMMATION ARE PRESENT. Performed at: WB Performed By: #### [id number] #### [facility] [address] [address] [address] Eduardo Sandoval HPV Aptima Positive Abnormal Negative [facility] Comment on above: Result Comment: This nucleic acid amplification test detects fourteen high-risk HPV types (16,18,31,33,35,39,45,51,52,56,58,59,66,68) without differentiation. Performed at: =G Performed By: #### [id number] #### [facility] [address] [address] [address] Eduardo Sandoval HPV Genotype 16 Negative Normal Negative [facility] Comment on above: Performed By: #### [id number] #### [facility] [address] [address] [address] Eduardo Sandoval HPV Genotype 18,45 Negative Normal Negative [facility] Comment on above: Performed By: #### [id number] #### [facility] [address] [address] [address] Eduardo Sandoval HPV Genotype Reflex Comment Normal [facility] Comment on above: Result Comment: Pietro dillon, see HPV Genotype results. Performed at: WB Performed By: #### [id number] #### [facility] [address] [place] [address] Dr. Eduardo Sandoval Methodology: Comment Normal [facility] Comment on above: Result Comment: This liquid based ThinPrep(R) pap test was screened with the use of an image guided system. Performed at: WB Performed By: #### [id number] #### [facility] [address] [place] [address] Dr. Eduardo Sandoval Note: Comment Normal [facility] Comment on above: Result Comment: The Pap smear is a screening test designed to aid in the detection of premalignant and malignant conditions of the uterine cervix. It is not a diagnostic procedure and should not be used as the sole means of detecting cervical cancer. Both false-positive and false-negative reports do occur. . Performed at: WB Performed By: #### [id number] #### [facility] [address] [place] [address] Dr. Eduardo Sandoval Performed by: Comment Normal [facility] Comment on above: Result Comment: Zabrina Rivera, Associate Financial Planner Performed at: WB Performed By: #### [id number] #### [facility] [address] [place] [address] Dr. Eduardo Sandoval Specimen adequacy: Comment Normal [facility] Comment on above: Result Comment: Sati sfactory for evaluation. Endocervical and/or squamous metaplastic cells (endocervical component) are present. Areas of partially obscuring inflammatory exudate are present. Performed at: WB Performed By: #### [id number] #### [facility] [address] [place] [address] Dr. Eduardo Sandoval Vital Signs Date Time Vital Sign Value Performing Clinician Facility 08-06-2023 10:26-0500 Body mass index (BMI) [Ratio] 34.86 kg/m2 Monique Kelly PA Work Phone: [facility] 08-06-2023 10:26-0500 Body weight 89.27 kg Monique Kelly PA Work Phone: [facility] 08-06-2023 10:26-0500 Diastolic blood pressure 70 mm[Hg] Monique Kelly PA Work Phone: [facility] 08-06-2023 10:26-0500 Systolic blood pressure 114 mm[Hg] Monique Kelly PA Work Phone: [facility] 09-25-2021 12:49-0400 Body height 160 cm Dulce Coronado MD Work Phone: [facility] 09-25-2021 12:49-0400 Body mass index (BMI) [Ratio] 29.58 kg/m2 Dulce Coronado MD Work Phone: [facility] 09-25-2021 12:49-0400 Body temperature 98.49 [degF] Dulce Coronado MD Work Phone: [facility] 09-25-2021 12:49-0400 Body weight 75.75 kg Dulce Coronado MD Work Phone: [facility] 09-25-2021 12:49-0400 Diastolic blood pressure 70 mm[Hg] Dulce Coronado MD Work Phone: [facility] 09-25-2021 12:49-0400 Heart rate 80 /min Dulce Coronado MD Work Phone: [facility] 09-25-2021 12:49-0400 Systolic blood pressure 131 mm[Hg] Dulce Coronado MD Work Phone: [facility] Encounters Encounter Date Encounter Type Care [...] Not Available Start: 05-27-2023 End: 05-27-2023 ambulatory MONIQUE KELLY Not Available Start: 09-10-2022 End: 09-10-[address] ERI VALLE . Facility: Start: 09-25-2021 End: 09-25-2021 Office outpatient new 30 minutes Dulce Coronado MD Work Phone: [facility] Comment on above: Breast cyst, right ( Primary Dx) Procedures Date Procedure Procedure Detail Performing Clinician Start: 08-06-2023 Urnls dip stick/tabl et rgnt non-auto w/o micrscp Eri Valle DO Work Phone: Plan of Treatment Date Care Activity Detail Author Start: 09-17-2023 End: 09-17-2023 Patient encounter procedure 09/17/2023 4:00 PM EDT Office Visit [facility] [address] [place] [address] Eri Valle, DO [address] [place] [address] [facility] Start: 08-13-2023 End: 08-13-2023 Patient encounter procedure 08/13/2023 2:00 PM EST Routine [facility] [address] [place] [address] Eri Valle, DO [address] [place] [address] [place] [address] [facility] Start: 02-28-2021 Influenza vaccination INFLUENZA VACC INE (#1) [facility] Start: 2010 Screening for malign ant neoplasm of cervix CERVICAL CANCER SCREENING DISCUSSION [facility] Start: 01-23-2008 Third diphtheria, tetanus and acellular pertussis (DTaP) vaccination TDAP (ADULT) [facility] Start: 2007 Tetanus vaccination TETANUS [facility] Start: 01-23-2004 HIV screening HIV SCREENING DISCUSSION [facility] Start: 1994 COVID-19 VACCINE (1) COVID-19 VACCIN E (1) [facility] Start: 1989 Hepatitis C antibody , confirmatory test HEPATITIS C VIRUS SCREENING [facility] GBS swab, PCR GBS swab, PCR La b Routine Third trimester Ordered: 08/06/2023 [facility] Work Phone: Comment on above: Ordered: 08/06/2023 Payers Date Payer Category Payer Unknown [id number] 2022 Unknown [place] [id number] 2022-Present [address] [address] [place] [address] [id number] 2021 Private Health Insurance AETKALPANA MEREDITH [id number] 2021-Present [address] [place] [address] [id number] 1989 Unknown [id number] 1989 Unknown [id number] 1989 Unknown [id number] 1989 Unknown [id number] 1989 Unknown [id number] 1989 Unknown [id number] 1989 Unknown [id number] 1959 Unknown [id number] Social History Date Type Detail Facility Start: [facility]25-2021 [facility] History of tobacco use Cigarette Smoker [facility] Start: 09-25-2021 Tobacco use and exposure Smokeless tobacco non-user [facility] Start: 09-25-2021 End: 08-06-2023 Alcohol intake Current drinker of alcohol (finding) [facility] Start: 09-25-2021 History SDOH Alcohol Comment Occasionally [facility] Start: 1990 Sex Assigned At Not on file [facility] Start: 04-15-2023 Tobacco smoking stat [facility] Never smoked tobacco [facility] Start: 04-15-2023 History of Social function [facility] Start: 04-15-2023 Tobacco use panel [facility] Start: 12-06-2022 [facility] Equipment Procedure Code Equipment Code Equipment Origin al Text Equipment Identifier Dates 1 each by Other route in the morning and 1 each at noon and 1 each in the evening and 1 each before bedtime. Use as instructed. [id number] Start: 06-10-2023 End: 07-04-2024 History of Present [...] high risk HPV BMI 28.0-28.9,adult Breast cancer ([facility]) Cystic breast Dense breast tissue on [...] nursing note reviewed. Exam conducted with a real estate director present. Vitals: Estimated body mass index is [...] Medications Medication Sig Dispense Refill norgestimate-ethinyl estradiol (Barnwell-Linyah) 0.25-35 MG-MCG tablet Take 1 tablet by [...] them back PRN. documented in this encounter [facility] Evaluation note Note Date & Type Note Facility Evaluation note Diagnosis Breast cyst, right- Primary documented in this encounter [facility] Evaluation note Note Date & Type [...] skin Eri Valle DO [address] [facility] [address] [place] [address] Dulce Coronado MD [address] [place] [address] Referral ID Status Reason Start Date Expiration Date V isits Requested Visits Authorized [id number] Pending Review 09/14/2021 10/09/2022 1 1 Reason Comments Routine Visit Care Teams (unrecognized sec tion and content) Territory Account Representative Relationship Specialty Start Date End Date Prema Guillen DO [address] [place] [address] PCP - General Family Medicine 09/25/21 Territory Account Representative Relationship Specialty Start Date End Date Prema Guillen [address] [place] [address] PCP - General Family Medicine 12/23/22 INFORMATION SOURCE (unrecogn ized section and content) DATE CREATED AUTHOR 09/20/2022 [facility] pital DATE CREATED AUTHOR AUTHOR'S CRISTIANOIZ ATION 08/07/2023 [facility] FOR RECORDS PERTAINING TO PATIENTS [...] BE BASED ON THE PRIMARY CLINICAL RECORDS. [facility] [employer] provides no warranty or guarantee of the accuracy or completeness of information in this document.
[2023-08-15 18:24] VITALS: BP 128/73; PULSE 90
== END 2023-08-15 18:50 | disposition home or self-care (01) ==
LOC: FBCO 07:43 → FBC 18:21
PROVIDERS: PCP Family Medicine; Visit Provider Obstetrics & Gynecology
DX: O36.63X1 Maternal care for excessive fetal growth, third trimester, fetus 1 (principal)
CPT/HCPCS: 59025

== ENCOUNTER 2023-08-19 08:03 | Outpatient (OUT) | payer OTHER, SELFPAY ==
--- OUTSIDE RECORDS SUMMARY | 2023-08-19 08:07 | XMS_ITS | CCD ---
Author Name Unknown Address [address] [facility] [address] [place] [address] Organization [facility] Care Team Providers Care Trashman Name Role Phone Prema Guillen DO Primary Care Provider TORI ., DR HWANG Attending Unavailable TORI ., DR HWANG Consulting Unavailable TORI ., DR HWANG Primary Care Unavailable TORI ., DR HWANG Admitting Unavailable Prema Guillen DO Primary Care Provider MONIQUE KELLY Attending Unavailable ERI VALLE Attending Unavailable MONIQUE KELLY Attending Unavailable ERI VALLE Attending Unavailable MONIQUE KELLY Attending Unavailable MONIQUE KELLY Attending Unavailable ERI VALLE Attending Unavailable Allergies Allergy Classification Reported Allergen(s) Allergy Type Date of Onset Reaction(s) Facility (5 sources) Penicillins; Translations: [Penicillins] Propensity to adverse reactions to drug 7 [facility] (3 sources) Benzathine penicillin - chemical Propensity to adverse reactions 3 [facility] Medications Current Medications Medication Drug Class(es) Dates Sig (Normalized) Sig (Original) Blood Glucose Monitoring Suppl (Blood Glucose Monitor System) w/Device kit (3 sources) Start: 06-10-2023 Blood Glucose Monitoring Suppl (Blood Glucose Monitor System) w/Device kit Indications: Gestational diabetes mellitus (GDM) in third trimester, gestational diabetes method of control unspecified 1 kit in the morning. 1 kit 0 06/10/2023 Active Blood Glucose Monitoring Suppl (D-Care Glucometer) w/Device kit (3 sources) Start: 06-11-2023 End: 06-10-2024 Blood Glucose Monitoring [...] (1 source) Progestin, Estrogen norgestimate-ethin yl estradiol (Montgomery-Linyah) 0.25-35 MG-MCG tablet Take 1 tablet by mouth daily. 0 Active isopropyl alcohol 0.7 ml/ml medicated pad (6 sources) Start: 07-10-2023 Alcohol Swabs (Alcohol Prep) [...] Active MV-Min-Fe Fum-FA-DH A ( 1 PO) (3 sources) MV-Min- Fe Fum-FA-DHA ( 1 PO) Take by mouth. 0 Active Problems Problem Classification Problem Date Documented Date Episodic/Chronic Immunizations and screening for infectious disease (1 source) Encounter for screening for human papillomavirus (HPV); Translations: [ENC SCREENING HUMAN PAPILLOMAVIRUS] Onset: 09-16-2022 Episodic Nonmalignant breast conditions (1 source) Cyst of right breast; Translations: [Solitary cyst of right breast] Episodic Other complications of (3 sources) RhD negative; Translations: [Other specified related conditions, unspecified trimester] Onset: 06-24-2023 06-24-2023 Episodic Other complications of (2 sources) Excessive growth affecting management of mother; Translations: [Maternal care for excessive growth, third trimester, not applicable or unspecified] 08-13-2023 Episodic Other and delivery including normal (6 sources) Third trimester ; Translations: [Encounter for supervision of normal , unspecified, third trimester] Onset: 06-24-2023 07-31-2023 Episodic Other screening for suspected conditions (not mental disorders or infectious disease) (4 sources) Encounter for screening for malignant neoplasm of cervix; Translations: [ENC SCREENING MALIG NEOPLASM CERV] Onset: 09-10-2022 Episodic Results Test Name Value Interpretation Reference Range Facility Urinalysis macro (dipstick) panel (U)on 08-13-2023 Bilirubin, UA Negative Negative - 4(70) +++ mg/dL [facility] Blood, UA Negative Negative - 50 Farooq/mcL [facility] Clarity, UA Clear [facility] Color, UA Yellow [facility] Glucose, UA Negative Negative - 1999(110) ++++ mg/dL [facility] Interpretation and review of laboratory results Abnormal [facility] Ketones, UA Positive Negative - 160(16) ++++ mg/dL [facility] Leukocytes, UA Positive Negative - 500+++ Mir/mcL [facility] Nitrite, UA Negative Negative - Positive [facility] pH, UA 7.0 5 - 9 [facility] Protein, UA Trace Negative - 1999(20) ++++ mg/dL [facility] Spec Grav, UA 1.030 1 - 1.03 [facility] Urobilinogen, UA 0.2 0.2 - 12 mg/dL [facility] Urinalysis macro (dipstick) panel (U)on 08-06-2023 Bilirubin, UA Positive Negative - 4(70) +++ mg/dL [facility] Blood, UA Positive Negative - 50 Farooq/mcL [facility] Clarity, UA Clear [facility] Color, UA Yellow [facility] Glucose, UA Negative Negative - 1999(110) ++++ mg/dL [facility] Interpretation and review of laboratory results Abnormal [facility] Ketones, UA Positive Negative - 160(16) ++++ mg/dL [facility] Leukocytes, UA Positive Negative - 500+++ Mir/mcL [facility] Nitrite, UA Negative Negative - Positive [facility] pH, UA 5.5 5 - 9 [facility] Protein, UA Positive Negative - 1999(20) ++++ mg/dL [facility] Spec Grav, UA 1.030 1 - 1.03 [facility] Urobilinogen, UA 1.0 0.2 - 12 mg/dL [facility] PAP ACOG PANEL 2: 30 to 65on 09-19-2022 . . Normal [facility] Comment on above: Result Comment: Perf ormed at: WB Performed By: #### [id number] #### [facility] [address] [address] [address] Eduardo Sandoval Age Gdln ACOG Testing 30-65 Normal [facility] Comment on above: Performed By: #### [id number] #### [facility] [address] [address] [address] Eduardo Sandoval DIAGNOSIS: Comment Normal [facility] Comment on above: Result Comment: NEGA TIVE FOR INTRAEPITHELIAL LESION OR MALIGNANCY. CELLULAR CHANGES ASSOCIATED WITH INFLAMMATION ARE PRESENT. Performed at: WB Performed By: #### [id number] #### [facility] [address] [address] [address] Eduardo Sandoval HPV Aptima Positive Abnormal Negative [facility] Comment on above: Result Comment: This nucleic acid amplification test detects fourteen high-risk HPV types (16,18,31,33,35,39,45,51,52,56,58,59,66,68) without differentiation. Performed at: =G Performed By: #### [id number] #### [facility] [address] [place] [address] Dr. Eduardo Sandoval HPV Genotype 16 Negative Normal Negative [facility] Comment on above: Performed By: #### [id number] #### [facility] [address] [address] [address] Eduardo Sandoval HPV Genotype 18,45 Negative Normal Negative [facility] Comment on above: Performed By: #### [id number] #### [facility] [address] [address] [address] Eduardo Sandoval HPV Genotype Reflex Comment Normal [facility] Comment on above: Result Comment: Pietro dillon, see HPV Genotype results. Performed at: WB Performed By: #### [id number] #### [facility] [address] [place] [address] Dr. Eduardo Sandoval Methodology: Comment Normal [facility] Comment on above: Result Comment: This liquid based ThinPrep(R) pap test was screened with the use of an image guided system. Performed at: WB Performed By: #### [id number] #### [facility] [address] [place] [address] Dr. Eduardo Sandoval Note: Comment Normal [facility] Comment on above: Result Comment: The Pap smear is a screening test designed to aid in the detection of premalignant and malignant conditions of the uterine cervix. It is not a diagnostic procedure and should not be used as the sole means of detecting cervical cancer. Both false-positive and false-negative reports do occur. . Performed at: WB Performed By: #### [id number] #### [facility] [address] [place] [address] Dr. Eduardo Sandoval Performed by: Comment Normal [place] Comment on above: Result Comment: Zabrina Rivera, [employer] Performed at: WB Performed By: #### [id number] #### [facility] [address] [place] [address] Dr. Eduardo Sandoval Specimen adequacy: Comment Normal [facility] Comment on above: Result Comment: Sati sfactory for evaluation. Endocervical and/or squamous metaplastic cells (endocervical component) are present. Areas of partially obscuring inflammatory exudate are present. Performed at: WB Performed By: #### [id number] #### [facility] [address] [place] [address] Dr. Eduardo Sandoval Vital Signs Date Time Vital Sign Value Performing Clinician Facility 08-13-2023 14:05-0500 Body mass index (BMI) [Ratio] 35.39 kg/m2 Reelation DO Work Phone: [facility] 08-13-2023 14:05-0500 Body weight 90.63 kg Reelation DO Work Phone: [facility] 08-13-2023 14:05-0500 Diastolic blood pressure 74 mm[Hg] [employer] Work Phone: [facility] 08-13-2023 14:05-0500 Systolic blood pressure 118 mm[Hg] [employer] Work Phone: [facility] 08-06-2023 10:26-0500 Body mass index (BMI) [Ratio] 34.86 kg/m2 Monique Kelly PA Work Phone: [facility] 08-06-2023 10:26-0500 Body weight 89.27 kg Monique Coxey PA Work Phone: [facility] 08-06-2023 10:26-0500 Diastolic blood pressure 70 mm[Hg] Monique Kelly PA Work Phone: [facility] 08-06-2023 10:26-0500 Systolic blood pressure 114 mm[Hg] Monique Coxey PA Work Phone: [facility] 09-25-2021 12:49-0400 Body height 160 cm Dulce Coronado MD Work Phone: [facility] 09-25-2021 12:49-0400 Body mass index (BMI) [Ratio] 29.58 kg/m2 Dulce Coronado MD Work Phone: [facility] 09-25-2021 12:49-0400 Body temperature 98.49 [degF] Dulce Coronado MD Work Phone: [facility] 09-25-2021 12:49-0400 Body weight 75.75 kg Dulce Coronado MD Work Phone: [facility] 09-25-2021 12:49-0400 Diastolic blood pressure 70 mm[Hg] Dulce Coronado MD Work Phone: [facility] 09-25-2021 12:49-0400 Heart rate 80 /min Dulce Coronado MD Work Phone: [facility] 09-25-2021 12:49-0400 Systolic blood pressure 131 mm[Hg] Dulce Coronado MD Work Phone: [facility] Encounters Encounter Date Encounter Type Care Provider Facility Start: 08-13-2023 End: 08-13-2023 ambulatory ERI TORI Not Available Start: 08-13-2023 End: 08-13-2023 flow sheet Eri Tori DO Work Phone: [facility] Comment on above: Third trimester preg leo; Excessive growth affecting management of in third trimester, single or unspecified fetus Start: 08-06-2023 End: 08-06-2023 ambulatory MONIQUE KELLY Not Available Start: 08-06-2023 End: 08-06-2023 flow sheet Monique Kelly PA Work Phone: [facility] Comment on above: Third trimester preg leo Start: 07-23-2023 End: 07-23-2023 ambulatory ERI VALLE Not Available Start: 07-08-2023 End: 07-08-2023 ambulatory MONIQUE LETICIA Not Available Start: 06-24-2023 End: 06-24-2023 ambulatory ERI VALLE Not Available Start: 06-10-2023 End: 06-10-2023 ambulatory MONIQUE KELLY Not Available Start: 05-27-2023 End: 05-27-2023 ambulatory MONIQUE KELLY Not Available Start: 09-10-2022 End: 09-10-[address] ERI VALLE . Facility: Start: 09-25-2021 End: 09-25-2021 Office outpatient new 30 minutes Dulce Coronado MD Work Phone: [facility] Comment on above: Breast cyst, right ( Primary Dx) Procedures Date Procedure Procedure Detail Performing Clinician Start: 08-13-2023 Urnls dip stick/tabl et rgnt non-auto w/o micrscp Eri Tori DO Work Phone: Start: 08-06-2023 Urnls dip stick/tabl et rgnt non-auto w/o micrscp Eri Tori DO Work Phone: Plan of Treatment Date Care Activity Detail Author Start: 09-17-2023 End: 09-17-2023 Patient encounter procedure 09/17/2023 4:00 PM EDT Office Visit [facility] [address] [place] [phone] Eri Valle DO [address] [place] [address] [facility] Start: 08-20-2023 End: 08-20-2023 Patient encounter procedure 08/20/2023 3:50 PM EST Routine [facility] [address] [place] [id number] Eri Valle, DO [address] [place] [address] [facility] Start: 08-13-2023 End: 08-13-2023 Patient encounter procedure 08/13/2023 2:00 PM EST Routine [facility] [address] [place] [phone] Eri Valle, DO [address] [place] [address] [facility] Start: 08-13-2023 End: 08-13-2024 US for US OB SCAN FOR GROWTH Imaging Routine Excessive growth affecting management of in third trimester, single or unspecified fetus Expected: 08/13/2023 (Approximate), Expires: 08/13/20[address] [facility] Work Phone: Comment on above: Expected: 08/13/2023 (Approximate), Expires: 08/13/2024 Start: 02-28-2021 Influenza vaccination INFLUENZA VACC INE (#1) [facility] Start: 2010 Screening for malign ant neoplasm of cervix CERVICAL CANCER SCREENING DISCUSSION [facility] Start: 01-23-2008 Third diphtheria, tetanus and acellular pertussis (DTaP) vaccination TDAP (ADULT) [facility] Start: 2007 Tetanus vaccination TETANUS [facility] Start: 01-23-2004 HIV screening HIV SCREENING DISCUSSION [facility] Start: 1994 COVID-19 VACCINE (1) COVID-19 VACCIN E (1) [facility] Start: 1989 Hepatitis C antibody , confirmatory test HEPATITIS C VIRUS SCREENING [facility] GBS swab, PCR GBS swab, PCR La b Routine Third trimester Ordered: 08/06/2023 [facility] Work Phone: Comment on above: Ordered: 08/06/2023 Payers Date Payer Category Payer Unknown MASOUD BRANDT [id number] 2022-Present [address] [address] [place] [address] [id number] 2022 Unknown [id number] 2021 Private Health Insurance AETKALPANA MEREDITH [id number] 2021-Present [address] [place] [address] [id number] 1989 Unknown [id number] 1989 Unknown [id number] 1989 Unknown [id number] 1989 Unknown [id number] 1989 Unknown [id number] 1989 Unknown [id number] 1989 Unknown [id number] 1989 Unknown [id number] 1959 Unknown [id number] Social History Date Type Detail Facility Start: 09-25-[facility]21 [facility] History of tobacco use Cigarette Smoker A [facility] Start: 09-25-2021 Tobacco use and exposure Smokeless tobacco non-user [facility] Start: 09-25-2021 End: 08-13-2023 Alcohol intake Current drinker of alcohol (finding) [facility] Start: 09-25-2021 History SDOH Alcohol Comment Occasionally [facility] Start: 1990 Sex Assigned At Not on file A [facility] Start: 04-15-2023 [facility] Never [facility] tobacco [facility] Start: 04-15-2023 History of Social function [facility] Start: 04-15-2023 Tobacco use panel [facility] Start: 12-06-2022 [facility] Equipment Procedure Code Equipment Code Equipment Origin al Text Equipment Identifier Dates 1 each by Other route in the morning and 1 each at noon and 1 each in the evening and 1 each before bedtime. Use as instructed. [id number] Start: 06-10-2023 End: 07-04-2024 History of Present illness Narrative 08-13-2023 Davina Ruvalcaba LPN - 08/13/2023 2:00 PM EST Note Date & Type Note Facility 08-13-2023 History of Presen t illness Narrative Reason [...] high risk HPV BMI 28.0-28.9,adult Breast cancer (CMS/HCC) Cystic breast Dense breast tissue on mammogram [...] nursing note reviewed. Exam conducted with a copy operator present. Vitals: Estimated body mass index is 35.39 kg/m as calculated from the following: Height as of 09/10/22: 5' 3 . Weight as of this encounter: 199 lb 12.8 oz. BP: 118/74 Patient's last menstrual period was 11/22/2022. Assessment/Plan Encounter Diagnosis Name Primary? Third trimester Patient presents today for a routine obstetrics appointment. Patient is currently 37w5d . Patient states she is doing well but has complaints of being tired due to current . Patient has verbalizes frequent movement. labor precautions was discussed/given and patient was instructed to perform kick counts three times a day. Follow Up: Patient is to return to office in 1 week for routine OB appointment. Documented by Davina Ruvalcaba LPN on behalf of: Eri Valle DO documented in this encounter [facility] History of Present illness Narrative 08-06-2023 ROXIE [...] high risk HPV BMI 28.0-28.9,adult Breast cancer (CMS/HCC) Cystic breast Dense breast tissue on mammogram [...] nursing note reviewed. Exam conducted with a copy operator present. Vitals: Estimated body mass index is 34.86 kg/m as calculated from the following: Height as of 09/10/22: 5' 3 . Weight as of this [...] Medications Medication Sig Dispense Refill norgestimate-ethinyl estradiol (Montgomery-Linyah) 0.25-35 MG-MCG tablet Take 1 tablet by [...] them back PRN. documented in this encounter [facility] Evaluation note Note Date & Type Note Facility Evaluation note Diagnosis Breast cyst, right- Primary documented in this encounter [facility] Evaluation note Note Date & Type Note Facility Evaluation note Diagnosis Third trimester state, incidental documented in this encounter [facility] Evaluation note Note Date & Type Note Facility Evaluation note Diagnosis Third trimester state, incidental Excessive growth affecting management of in third trimester, single or unspecified fetus documented in this encounter [facility] Summary [...] breast skin Eri Valle, DO [address] [facility] [address] [place] [address] Dluce Coronado MD [address] [place] [address] Referral ID Status Reason Start Date Expiration Date V isits Requested Visits Authorized [id number] Pending Review 09/14/2021 10/09/2022 1 1 Reason Comments Routine Visit Care Teams (unrecognized sec tion and content) Trashman Relationship Specialty Start Date End Date Prema Guillen DO [address] [place] [address] PCP - General Family Medicine 09/25/21 Trashman Relationship Specialty Start Date End Date Prema Guillen DO [address] [place], [place] [id number] PCP - General Family Medicine 12/23/22 Trashman Relationship Specialty Start Date End Date Prema Guillen DO [address] [place], [place] [phone] PCP - General Family Medicine 12/23/22 INFORMATION SOURCE (unrecogn ized section and content) DATE CREATED AUTHOR 09/20/2022 The Yonatan rolandal DATE CREATED AUTHOR AUTHOR'S EVY BRAND 08/15/2023 [facility] d[facility] Special[facility] EPIC FOR RECORDS PERTAINING TO [...] BE BASED ON THE PRIMARY CLINICAL RECORDS. [employer] provides no warranty or guarantee of the accuracy or completeness of information in this document.
[2023-08-19 17:04] VITALS: BP 120/71; PULSE 113
--- NOTE | 2023-08-19 17:11 | US_ITS ---
[address] [address] Patient Name: MAGI KENNY MRN: [id number] date: 1990 Sex: F Assigned Patient Location: [facility] Current Patient Location: Accession/Order Number: [id number] Exam Date: 08/19/2023 18:15 Report Date: 08/20/2023 07:16 At the request of: ERI CORRALES Procedure: US OB growth EXAMINATION: US OB growth HISTORY: EXCESSIVE GROWTH AFFECTING O36.63X0 COMPARISON: No relevant comparison available. FINDINGS: Heart Rate: 135.0 bpm Number: 1.0 Position: CEPHALIC Amniotic Fluid Volume: 17.2 cm Maximum Vertical Pocket: 5.7 cm BIOMETRY: BPD: 9.6 cm cm; 39 weeks 3 days; 91% HC: 34.8 cmcm; 40 weeks 3 days ; 76% AC: 34.8 cm cm; 38 weeks 5 days; 74% FL: 7.3 cm cm; 37 weeks 3 days; 27% EFW: 3572.4 grams; 70% FL/AC: 21.0 FL/BPD: 75.9 HC/AC: 1.0 GESTATIONAL AGE: Age by EDC: 38 weeks 4 days GARCÍA by EDC: 08/29/2023 Age by US: 39 weeks 0 days GARCÍA by US: 08/26/2023 US/US OB growth IMPRESSION: 1. Single live intrauterine with growth detailed above. Electronically authenticated by: ROJELIO GARCÍA Date: 08/20/2023 07:16
--- NOTE | 2023-08-19 17:13 | US_ITS ---
[address] [address] Patient Name: MAGI KENNY MRN: [id number] date: 1990 Sex: F Assigned Patient Location: US Current Patient Location: Accession/Order Number: [id number] Exam Date: 08/19/2023 18:15 Report Date: 08/20/2023 07:12 At the request of: ERI CORRALES Procedure: US OB BPP w non-stress EXAMINATION: US OB BPP w non-stress HISTORY: EXCESSIVE GROWTH AFFECTING O36.63X0 COMPARISON: Ultrasound OB biophysical 08/12/2023 TECHNIQUE: Ultrasound biophysical profile was performed in the radiology department. BREATHING MOVEMENTS: 2.0 GROSS BODY MOVEMENTS: 2.0 TONE: 2.0 QUALITATIVE AMNIOTIC FLUID VOLUME: 2.0 PRESENTATION: CEPHALIC HEART RATE: 135.0 bpm bpm. AMNIOTIC FLUID VOLUME: 17.2 cm GESTATIONAL AGE: 38 weeks 4 days CONCLUSION: Total biophysical profile score 8.0. Electronically authenticated by: ROJELIO GARCÍA Date: 08/20/2023 07:12
== END 2023-08-19 18:54 | disposition home or self-care (01) ==
LOC: US 08:04 → FBC 16:57
PROVIDERS: PCP Family Medicine; Visit Provider Obstetrics & Gynecology
DX: O36.63X0 Maternal care for excessive fetal growth, third trimester, not applicable or unspecified (principal); Z3A.39 39 weeks gestation of pregnancy
CPT/HCPCS: 76816; 76818

== ENCOUNTER 2023-08-26 16:59 | Outpatient (OUT) | payer OTHER, SELFPAY ==
--- NOTE | 2023-08-26 17:01 | US_ITS ---
[address] [address] Patient Name: MAGI KENNY MRN: [id number] date: 1990 Sex: F Assigned Patient Location: [facility] Current Patient Location: [facility] Accession/Order Number: [id number] Exam Date: 08/26/2023 17:08 Report Date: 08/26/2023 17:40 At the request of: ERI CORRALES Procedure: US OB BPP w non-stress PROCEDURE: US OB BPP w non-stress, 08/26/2023 5:08 PM EST CLINICAL INDICATIONS: Encounter for third trimester , excessive growth, biophysical profile assessment. Expected gestational age: 39 weeks 4 days Expected GARCÍA: 08/29/2023 COMPARISON: None TECHNIQUE: Limited third trimester obstetric sonogram, biophysical profile assessment. FINDINGS: Single living intrauterine identified. Cephalic presentation. body, cardiac activity noted, heart rate 153 bpm. Amniotic fluid index 13.7 cm, maximum vertical pocket 4.9 cm. biometry: Not performed. anatomic assessment: Not performed. BIOPHYSICAL PROFILE ASSESSMENT: movement: 2/2 tone: 2/2 breathin/2 fluid: 2/2 Total biophysical profile score: 8/8 Maternal adnexa are not evaluated. US/US OB BPP w non-stress IMPRESSION: 1. Single living intrauterine , cephalic presentation 2. 13.7 cm amniotic fluid index, maximum vertical pocket 4.9 cm. 3. Normal biophysical profile assessment, total score 8/8 Electronically authenticated by: SERGIO TREVINO Date: 08/26/2023 17:40
[2023-08-26 17:36] VITALS: BP 129/69; PULSE 127
--- OUTSIDE RECORDS SUMMARY | 2023-08-27 16:02 | XMS_ITS | CCD ---
Author Name Unknown Address [address] [facility] [address] [place] [id number] Organization [facility] Care Team Providers Care Building Wrecker Name Role Phone Prema Guillen DO Primary [...] to adverse reactions to drug 7 [facility] (3 sources) Benzathine penicillin - chemical [...] (1 source) Progestin, Estrogen norgestimate-ethin yl estradiol ([place]oudoun-Linyah) 0.25-35 MG-MCG tablet Take 1 tablet by [...] UA Negative Negative - 4(70) +++ mg/dL [facility] Blood, UA Negative Negative - 50 Farooq/mcL [facility] Clarity, UA Clear [facility] Color, UA Yellow [facility] Glucose, UA Negative Negative - 1999(110) ++++ mg/dL [facility] Interpretation and review of laboratory results Abnormal [facility] Ketones, UA Positive Negative - 160(16) ++++ mg/dL [facility] Leukocytes, UA Positive Negative - 500+++ Mir/mcL [facility] Nitrite, UA Negative Negative - Positive [facility] pH, UA 7.0 5 - 9 [facility] Protein, UA Trace Negative - 1999(20) ++++ mg/dL [facility] Spec Grav, UA 1.030 1 - 1.03 [facility] Urobilinogen, UA 0.2 0.2 - 12 mg/dL [facility] Urinalysis macro (dipstick) panel (U)on 08-06-2023 Bilirubin, UA Positive Negative - 4(70) +++ mg/dL [facility] Blood, UA Positive Negative - 50 Farooq/mcL [facility] Clarity, UA Clear [facility] Color, UA Yellow [facility] Glucose, UA Negative Negative - 1999(110) ++++ mg/dL [facility] Interpretation and review of laboratory results Abnormal [facility] Ketones, UA Positive Negative - 160(16) ++++ mg/dL [facility] Leukocytes, UA Positive Negative - 500+++ Mir/mcL [facility] Nitrite, UA Negative Negative - Positive [facility] pH, UA 5.5 5 - 9 [facility] Protein, UA Positive Negative - 1999(20) ++++ mg/dL [facility] Spec Grav, UA 1.030 1 - 1.03 [facility] Urobilinogen, UA 1.0 0.2 - 12 mg/dL [facility] PAP ACOG PANEL 2: 30 to 65on 09-19-2022 . . Normal [facility] Comment on above: Result Comment: Perf ormed at: WB Performed By: #### [id number] #### [facility] [address] [address] [address] Eduardo Sandoval Age Gdln ACOG Testing 30-65 Normal [facility] Comment on above: Performed By: #### [id number] #### [facility] [address] [address] [address] Eduardo Sandoval DIAGNOSIS: Comment Normal [facility] Comment on above: Result Comment: NEGA TIVE FOR INTRAEPITHELIAL LESION OR MALIGNANCY. CELLULAR CHANGES ASSOCIATED WITH INFLAMMATION ARE PRESENT. Performed at: WB Performed By: #### [id number] #### [facility] [address] [address] [address] Eduardo Sandoval HPV Aptima Positive Abnormal Negative [facility] Comment on above: Result Comment: This nucleic acid amplification test detects fourteen high-risk HPV types (16,18,31,33,35,39,45,51,52,56,58,59,66,68) without differentiation. Performed at: =G Performed By: #### [id number] #### [facility] [address] [place] [address] Dr. Eduardo Sandoval HPV Genotype 16 Negative Normal Negative [facility] Comment on above: Performed By: #### [id number] #### [facility] [address] [address] [address] Eduardo Sandoval HPV Genotype 18,45 Negative Normal Negative [facility] Comment on above: Performed By: #### [id number] #### [facility] [address] [address] [address] Eduardo Sandoval HPV Genotype Reflex Comment Normal [facility] Comment on above: Result Comment: Pietro dillon, see HPV Genotype results. Performed at: WB Performed By: #### [id number] #### [facility] [address] [place] [address] Dr. Eduardo Sandoval Methodology: Comment Normal [facility] Comment on above: Result Comment: This liquid based ThinPrep(R) pap test was screened with the use of an image guided system. Performed at: WB Performed By: #### [id number] #### [facility] [address] [place] [address] Dr. Eduardo Sandoval Note: Comment Normal [facility] Comment on above: Result [...] Performed at: WB Performed By: #### [id number] #### [facility] [address] [place] [address] Dr. Eduardo Sandoval Performed by: Comment Normal [facility] Comment on above: Result Comment: Zabrina Rivera, Specification Writer Performed at: WB Performed By: #### [id number] #### [facility] [address] [place] [address] Dr. Eduardo Sandoval Specimen adequacy: Comment Normal [facility] Comment on above: Result Comment: Sati sfactory for evaluation. Endocervical and/or squamous metaplastic cells (endocervical component) are present. Areas of partially obscuring inflammatory exudate are present. Performed at: WB Performed By: #### [id number] #### [facility] [address] [place] [address] Dr. Eduardo Sandoval Vital Signs Date Time Vital Sign Value Performing Clinician Facility 08-13-2023 14:05-0500 Body mass index (BMI) [Ratio] 35.39 kg/m2 [employer] DO Work Phone: [facility] 08-13-2023 14:05-0500 Body weight 90.63 kg [employer] DO Work Phone: [facility] 08-13-2023 14:05-0500 Diastolic blood pressure 74 mm[Hg] [employer] Work Phone: [facility] 08-13-2023 14:05-0500 Systolic blood pressure 118 mm[Hg] [employer] Work Phone: [facility] 08-06-2023 10:26-0500 Body mass index (BMI) [Ratio] 34.86 kg/m2 Monique Kelly PA Work Phone: [facility] 08-06-2023 10:26-0500 Body weight 89.27 kg Monique Coxey PA Work Phone: [facility] 08-06-2023 10:26-0500 Diastolic blood pressure 70 mm[Hg] Monique Kelly PA Work Phone: [facility] 08-06-2023 10:26-0500 Systolic blood pressure 114 mm[Hg] Monique Coxey PA Work Phone: [facility] 09-25-2021 12:49-0400 Body height 160 cm Dulce Coronado MD Work Phone: [facility] 09-25-2021 12:49-0400 Body mass index (BMI) [Ratio] 29.58 kg/m2 Dulce Coronado MD Work Phone: [facility] 09-25-2021 12:49-0400 Body temperature 98.49 [degF] Dulce Coronado MD Work Phone: [facility] 09-25-2021 12:49-0400 Body weight 75.75 kg Dulce Coronado MD Work Phone: [facility] 09-25-2021 12:49-0400 Diastolic blood pressure 70 mm[Hg] Dulce Coronado MD Work Phone: [facility] 09-25-2021 12:49-0400 Heart rate 80 /min Dulce Coronado MD Work Phone: [facility] 09-25-2021 12:49-0400 Systolic blood pressure 131 mm[Hg] Dulce Coronado MD Work Phone: [facility] Encounters Encounter Date Encounter Type Care [...] 30 minutes Dulce Coronado MD Work Phone: [facility] Comment on above: Breast [...] Visit [facility] [address] [place] [id number] Eri Valle DO [address] [place] [address] [facility] Start: 08-20-2023 End: 08-20-2023 Patient encounter procedure 08/20/2023 3:50 PM EST Routine [facility] [address] [facility] [place] [id number] Eri Valle, DO [address] [place] [address] [facility] Start: 08-13-2023 End: 08-13-2023 Patient encounter procedure 08/13/2023 2:00 PM EST Routine [facility] [address] [facility] [place] [id number] Eri Valle, DO [address] [place] [address] [facility] Start: 08-13-2023 End: 08-13-2024 US for US OB SCAN FOR GROWTH Imaging Routine Excessive growth affecting management of in third trimester, single or unspecified fetus Expected: 08/13/2023 (Approximate), Expires: 08/13/2024 [facility] Work Phone: Comment on above: Expected: 08/13/2023 (Approximate), Expires: 08/13/2024 Start: 02-28-2021 Influenza vaccination INFLUENZA VACC INE (#1) [facility] Start: 2010 Screening for malign ant neoplasm of cervix CERVICAL CANCER SCREENING DISCUSSION [facility] Start: 01-23-2008 Third diphtheria, tetanus and acellular pertussis (DTaP) vaccination TDAP (ADULT) [facility] Start: 2007 Tetanus vaccination TETANUS [facility] Start: 01-23-2004 HIV screening HIV SCREENING DISCUSSION [facility] Start: 1994 COVID-19 VACCINE (1) COVID-19 VACCIN E (1) [facility] Start: 1989 Hepatitis C antibody , confirmatory test HEPATITIS C VIRUS SCREENING [facility] GBS swab, PCR GBS swab, PCR La b Routine Third trimester Ordered: 08/06/2023 [facility] Work Phone: Comment on above: Ordered: 08/06/2023 Payers Date Payer Category Payer Unknown [employer]OUD BRANDT [id number] 2022-Present [address] [address] [place] [address] [id number] 2022 Unknown [id number] 2021 Private Health Insurance [employer]ETK[employer]NA MEREDITH [id number] 2021-Present [address] [place] [address] [id number] 1989 Unknown [id number] 1989 Unknown [id number] 1989 Unknown [id number] 1989 Unknown [id number] 1989 Unknown [id number] 1989 Unknown [id number] 1989 Unknown [id number] 1989 Unknown [id number] 1959 Unknown [id number] Social History Date Type Detail Facility Start: 09-25-2021 [facility] History of tobacco use Cigarette Smoker [facility] Start: 09-25-2021 Tobacco use and exposure Smokeless tobacco non-user [facility] Start: 09-25-2021 End: 08-13-2023 Alcohol intake Current drinker of alcohol (finding) [facility] Start: 09-25-2021 History SDOH Alcohol Comment Occasionally [facility] Start: 1989 Sex Assigned At Not on file A [facility] Start: 04-15-2023 [facility] Never smoked tobacco [facility] Start: 04-15-2023 History of Social function [facility] Start: 04-15-2023 Tobacco use panel [facility] Start: 12-06-2022 [facility] Procedure Code Equipment Code Equipment Origin al Text Equipment Identifier Dates 1 each by Other route in the morning and 1 each at noon and 1 each in the evening and 1 each before bedtime. Use as instructed. [id number] Start: 06-10-2023 End: 07-04-2024 History of Present [...] nursing note reviewed. Exam conducted with a quality consultant present. Vitals: Estimated body mass index is [...] nursing note reviewed. Exam conducted with a quality consultant present. Vitals: Estimated body mass index is [...] Medications Medication Sig Dispense Refill norgestimate-ethinyl estradiol ([place]oudoun-Linyah) 0.25-35 MG-MCG tablet Take 1 tablet by [...] back PRN. documented in this encounter [facility] Evaluation note Note Date & Type Note Facility Evaluation note Diagnosis Breast cyst, right- Primary documented in this encounter [facility] Evaluation note Note Date & Type [...] breast skin Eri Valle, DO [address] [facility] [address] [place] [address] Dulce Coronado MD [address] [place] [address] Referral ID Status Reason Start Date Expiration Date V isits Requested Visits Authorized [id number] Pending Review 09/14/2021 10/09/2022 1 1 Reason Comments Routine Visit Care Teams (unrecognized sec tion and content) Building Wrecker Relationship Specialty Start Date End Date Prema Guillen DO [address] [place] [address] PCP - General Family Medicine 09/25/21 Building Wrecker Relationship Specialty Start Date End Date Prema Guillen DO [address] [place], [place] [id number] PCP - General Family Medicine 12/23/22 Building Wrecker Relationship Specialty Start Date End Date Prema Guillen DO [address] [place], [place] [id number] PCP - General Family Medicine 12/23/22 INFORMATION SOURCE (unrecogn ized section and content) DATE CREATED AUTHOR 09/20/2022 [facility] DATE CREATED AUTHOR AUTHOR'S EVY BRAND 08/15/2023 [facility] dical Specialists EPIC FOR RECORDS [...] BE BASED ON THE PRIMARY CLINICAL RECORDS. [employer] provides no warranty or guarantee of the accuracy or completeness of information in this document.
== END 2023-08-26 20:15 | disposition home or self-care (01) ==
LOC: FBC 17:04 → FBCO 08-27 15:27
PROVIDERS: PCP Family Medicine; Visit Provider Obstetrics & Gynecology
DX: O36.63X0 Maternal care for excessive fetal growth, third trimester, not applicable or unspecified (principal); Z3A.39 39 weeks gestation of pregnancy
CPT/HCPCS: 76818; G0378; G0379

== ENCOUNTER 2023-08-28 04:56 | Inpatient (IN) | payer OTHER, SELFPAY ==
[2023-08-28] VITALS (35 sets, daily range): BP systolic 83–156; BP diastolic 48–81; PULSE 69–116; RESP 16; TEMP 36.3–36.6
--- OUTSIDE RECORDS SUMMARY | 2023-08-28 05:02 | XMS_ITS | CCD ---
Author Name Unknown Address [address] [facility] [address] [place] [id number] Organization [facility] Care Team Providers Care Police Matron Name Role Phone Prema Guillen DO Primary [...] Propensity to adverse reactions to drug 7 [facility] (3 sources) Benzathine penicillin - chemical [...] (1 source) Progestin, Estrogen norgestimate-ethin yl estradiol ([place]-Linyah) 0.25-35 MG-MCG tablet Take 1 tablet by [...] UA Negative Negative - 4(70) +++ mg/dL [facility] Blood, UA Negative Negative - 50 Farooq/mcL [facility] Clarity, UA Clear [facility] Color, UA Yellow [facility] Glucose, UA Negative Negative - 1999(110) ++++ mg/dL [facility] Interpretation and review of laboratory results Abnormal [facility] Ketones, UA Positive Negative - 160(16) ++++ mg/dL [facility] Leukocytes, UA Positive Negative - 500+++ Mir/mcL [facility] Nitrite, UA Negative Negative - Positive [facility] pH, UA 7.0 5 - 9 [facility] Protein, UA Trace Negative - 1999(20) ++++ mg/dL [facility] Spec Grav, UA 1.030 1 - 1.03 [facility] Urobilinogen, UA 0.2 0.2 - 12 mg/dL [facility] Urinalysis macro (dipstick) panel (U)on 08-06-2023 Bilirubin, UA Positive Negative - 4(70) +++ mg/dL [facility] Blood, UA Positive Negative - 50 Farooq/mcL [facility] Clarity, UA Clear [facility] Color, UA Yellow [facility] Glucose, UA Negative Negative - 1999(110) ++++ mg/dL [facility] Interpretation and review of laboratory results Abnormal [facility] Ketones, UA Positive Negative - 160(16) ++++ mg/dL [facility] Leukocytes, UA Positive Negative - 500+++ Mir/mcL [facility] Nitrite, UA Negative Negative - Positive [facility] pH, UA 5.5 5 - 9 [facility] Protein, UA Positive Negative - 1999(20) ++++ mg/dL [facility] Spec Grav, UA 1.030 1 - 1.03 [facility] Urobilinogen, UA 1.0 0.2 - 12 mg/dL [facility] PAP ACOG PANEL 2: 30 to 65on 09-19-2022 . . Normal [facility] Comment on above: Result Comment: Perf ormed at: WB Performed By: #### [id number] #### [facility] [address] [address] [address] Eduardo Sandoval Age Gdln ACOG Testing 30-65 Normal [facility] Comment on above: Performed By: #### [id number] #### [facility] [address] [address] [address] Eduardo Sandoval DIAGNOSIS: Comment Normal [facility] Comment on above: Result Comment: NEGA TIVE FOR INTRAEPITHELIAL LESION OR MALIGNANCY. CELLULAR CHANGES ASSOCIATED WITH INFLAMMATION ARE PRESENT. Performed at: WB Performed By: #### [id number] #### [facility] [address] [address] [address] Eduardo Sandoval HPV Aptima Positive Abnormal Negative [facility] Comment on above: Result Comment: This nucleic acid amplification test detects fourteen high-risk HPV types (16,18,31,33,35,39,45,51,52,56,58,59,66,68) without differentiation. Performed at: =G Performed By: #### [id number] #### [facility] [address] [place] [address] Dr. Eduardo Sandoval HPV Genotype 16 Negative Normal Negative [facility] Comment on above: Performed By: #### [id number] #### [facility] [address] [address] [address] Eduardo Sandoval HPV Genotype 18,45 Negative Normal Negative [facility] Comment on above: Performed By: #### [id number] #### [facility] [address] [address] [address] Eduardo Sandoval HPV Genotype Reflex Comment Normal [facility] Comment on above: Result Comment: Pietro dillon, see HPV Genotype results. Performed at: WB Performed By: #### [id number] #### [facility] [address] [place] [address] Dr. Eduardo Sandoval Methodology: Comment Normal [facility] Comment on above: Result Comment: This liquid based ThinPrep(R) pap test was screened with the use of an image guided system. Performed at: WB Performed By: #### [id number] #### [facility] [address] [place] [address] Dr. Eduardo Sandoval Note: Comment Normal [facility] Comment on above: Result Comment: The Pap smear is a screening test designed to aid in the detection of premalignant and malignant conditions of the uterine cervix. It is not a diagnostic procedure and should not be used as the sole means of detecting cervical cancer. Both false-positive and false-negative reports do occur. . Performed at: WB Performed By: #### [id number] #### [facility] [address] [place] [address] Dr. Eduardo Sandoval Performed by: Comment Normal [facility] Comment on above: Result Comment: Zabrina Rivera, Computer Game Programmer Performed at: WB Performed By: #### [id number] #### [facility] [address] [place] [address] Dr. Eduardo Sandoval Specimen adequacy: Comment Normal [facility] Comment on above: Result Comment: Sati sfactory for evaluation. Endocervical and/or squamous metaplastic cells (endocervical component) are present. Areas of partially obscuring inflammatory exudate are present. Performed at: WB Performed By: #### [id number] #### [facility] [address] [place] [address] Dr. Eduardo Sandoval Vital Signs Date Time Vital Sign Value Performing Clinician Facility 08-13-2023 14:05-0500 Body mass index (BMI) [Ratio] 35.39 kg/m2 N[employer]ric Bio DO Work Phone: [facility] 08-13-2023 14:05-0500 Body weight 90.63 kg Nitric Bio DO Work Phone: [facility] 08-13-2023 14:05-0500 Diastolic blood pressure 74 mm[Hg] [employer] Work Phone: [facility] 08-13-2023 14:05-0500 Systolic blood pressure 118 mm[Hg] [employer] Work Phone: [facility] 08-06-2023 10:26-0500 Body mass index (BMI) [Ratio] 34.86 kg/m2 Monique Kelly PA Work Phone: [facility] 08-06-2023 10:26-0500 Body weight 89.27 kg Monique Coxey PA Work Phone: [facility] 08-06-2023 10:26-0500 Diastolic blood pressure 70 mm[Hg] Monique Kelly PA Work Phone: [facility] 08-06-2023 10:26-0500 Systolic blood pressure 114 mm[Hg] Monique Coxey PA Work Phone: [facility] 09-25-2021 12:49-0400 Body height 160 cm Dulce Coronado MD Work Phone: [facility] 09-25-2021 12:49-0400 Body mass index (BMI) [Ratio] 29.58 kg/m2 Dulce Coronado MD Work Phone: [facility] 09-25-2021 12:49-0400 Body temperature 98.49 [degF] Dulce Coronado MD Work Phone: [facility] 09-25-2021 12:49-0400 Body weight 75.75 kg Dulce Coronado MD Work Phone: [facility] 09-25-2021 12:49-0400 Diastolic blood pressure 70 mm[Hg] Dulce Coronado MD Work Phone: [facility] 09-25-2021 12:49-0400 Heart rate 80 /min Dulce Coronado MD Work Phone: [facility] 09-25-2021 12:49-0400 Systolic blood pressure 131 mm[Hg] Dulce Coronado MD Work Phone: [facility] Encounters Encounter Date Encounter Type Care [...] 30 minutes Dulce Coronado MD Work Phone: [facility] Comment on above: Breast cyst, [...] Visit [facility] [address] [place] [id number] Eri Valle DO [address] [place] [address] [facility] Start: 08-20-2023 End: 08-20-2023 Patient encounter procedure 08/20/2023 3:50 PM EST Routine [facility] [address] [facility] [place] [phone] Eri Valle, DO [address] [place] [address] [facility] Start: 08-13-2023 End: 08-13-2023 Patient encounter procedure 08/13/2023 2:00 PM EST Routine [facility] [address] [facility] [place] [phone] Eri Valle, DO [address] [place] [address] [facility] Start: 08-13-2023 End: 08-13-2024 US for US OB SCAN FOR GROWTH Imaging Routine Excessive growth affecting management of in third trimester, single or unspecified fetus Expected: 08/13/2023 (Approximate), Expires: 08/13/2024 [facility] Work Phone: Comment on above: Expected: 08/13/2023 (Approximate), Expires: 08/13/2024 Start: 02-28-2021 Influenza vaccination INFLUENZA VACC INE (#1) [facility] Start: 2010 Screening for malign ant neoplasm of cervix CERVICAL CANCER SCREENING DISCUSSION [facility] Start: 01-23-2008 Third diphtheria, tetanus and acellular pertussis (DTaP) vaccination TDAP (ADULT) [facility] Start: 2007 Tetanus vaccination TETANUS [facility] Start: 01-23-2004 HIV screening HIV SCREENING DISCUSSION [facility] Start: 1994 COVID-19 VACCINE (1) COVID-19 VACCIN E (1) [facility] Start: 1989 Hepatitis C antibody , confirmatory test HEPATITIS C VIRUS SCREENING [facility] GBS swab, PCR GBS swab, PCR La b Routine Third trimester Ordered: 08/06/2023 [facility] Work Phone: Comment on above: Ordered: 08/06/2023 Payers Date Payer Category Payer Unknown MASOUD BRANDT [id number] 2022-Present [address] [address] [place] [address] [id number] 2022 Unknown [id number] 2021 Private Health Insurance AETKALPANA MEREDITH [id number] 2021-Present [address] [place] [address] [id number] 1989 Unknown [id number] 1989 Unknown [id number] 1989 Unknown [id number] 1989 Unknown [id number] 1989 Unknown [id number] 1989 Unknown [id number] 1989 Unknown [id number] 1989 Unknown [id number] 1959 Unknown [id number] Social History Date Type Detail Facility Start: 09-25-2021 [facility] History of tobacco use Cigarette Smoker A [facility] Start: 09-25-2021 Tobacco use and exposure Smokeless tobacco non-user [facility] Start: 09-25-2021 End: 08-13-2023 Alcohol intake Current drinker of alcohol (finding) [facility] Start: 09-25-2021 History SDOH Alcohol Comment Occasionally [facility] Start: 1989 Sex Assigned At Not on file A [facility] Start: 04-15-2023 [facility] Never smoked tobacco [facility] Start: 04-15-2023 History of Social function [facility] Start: 04-15-2023 Tobacco use panel [facility] Start: 12-06-2022 [facility] Procedure Code Equipment Code Equipment Origin al Text Equipment Identifier Dates 1 each by Other route in the morning and 1 each at noon and 1 each in the evening and 1 each before bedtime. Use as instructed. [id number] Start: 06-10-2023 End: 07-04-2024 History of Present [...] nursing note reviewed. Exam conducted with a industrial green systems designer present. Vitals: Estimated body mass index is [...] nursing note reviewed. Exam conducted with a industrial green systems designer present. Vitals: Estimated body mass index is [...] Medications Medication Sig Dispense Refill norgestimate-ethinyl estradiol ([place]aver[place]-Linyah) 0.25-35 MG-MCG tablet Take 1 tablet by [...] them back PRN. documented in this encounter [facility] Evaluation note Note Date & Type Note Facility Evaluation note Diagnosis Breast cyst, right- Primary documented in this encounter [facility] Evaluation note Note Date & Type [...] Valle, DO [address] [facility] [address] [place] [address] Dulce Coronado MD [address] [place] [id number] Referral ID Status Reason Start Date Expiration Date V isits Requested Visits Authorized [id number] Pending Review 09/14/2021 10/09/2022 1 1 Reason Comments Routine Visit Care Teams (unrecognized sec tion and content) Police Matron Relationship Specialty Start Date End Date Prema Guillen DO [address] [place] [address] PCP - General Family Medicine 09/25/21 Police Matron Relationship Specialty Start Date End Date Prema Guillen DO [address] [place], [place] [phone] PCP - General Family Medicine 12/23/22 Police Matron Relationship Specialty Start Date End Date Prema Guillen DO [address] [place], [place] [phone] PCP - General Family Medicine 12/23/22 INFORMATION SOURCE (unrecogn ized section and content) DATE CREATED AUTHOR 09/20/2022 The Yonatan rolandal DATE CREATED AUTHOR AUTHOR'S EVY BRAND 08/15/2023 [facility] EPIC FOR RECORDS PERTAINING TO [...] BE BASED ON THE PRIMARY CLINICAL RECORDS. [employer] provides no warranty or guarantee of the accuracy or completeness of information in this document.
[2023-08-28 07:02] LABS: Hematocrit 40.3 % (36.0-48.0); Hemoglobin 13.1 g/dL (12.0-16.0); Mean Corpuscular HGB Conc 32.5 g/dL (29.9-35.2); Mean Corpuscular Hemoglobin 30.8 pg (26.7-34.0); Mean Corpuscular Volume 94.8 fL (81.0-99.0); Mean Platelet Volume 9.3 fL (9.5-13.5); Platelet Count 416 10^3/uL (150-450); Red Blood Count 4.25 10^6/uL (4.20-5.40); Red Cell Distribution Width 13.5 % (11.0-15.0); White Blood Count 15.5 10^3/uL (4.0-11.0)
[2023-08-28 07:38] LABS: Amphetamine Screen Urine NEGATIVE (NEGATIVE); Barbiturates Screen Urine NEGATIVE (NEGATIVE); Benzodiazepines Screen Urine NEGATIVE (NEGATIVE); Buprenorphine Screen Urine NEGATIVE (NEGATIVE); Cannabinoid Screen Urine NEGATIVE (NEGATIVE); Cocaine Screen Urine NEGATIVE (NEGATIVE); Methadone Screen Urine NEGATIVE (NEGATIVE); Methamphetamines Screen Urine NEGATIVE (NEGATIVE); Opiate Screen Urine NEGATIVE (NEGATIVE); Oxycodone Screen Urine NEGATIVE (NEGATIVE); Phencyclidine Screen Urine NEGATIVE (NEGATIVE); Tricyclic Antidepressant Urine NEGATIVE (NEGATIVE)
[2023-08-28] MEDS: 0.9 % SODIUM CHLORIDE 1,000 ML 125 ML IV ×2 (11:55→13:40)
[2023-08-28] MEDS: ROPIVACAINE HCL/PF 400 MG/200 ML PREMIX 6 MG EPIDURAL (14:26)
--- NOTE | 2023-08-28 16:48 | PM.OBPRCVD ---
Procedure Intrapartal events: None Induction method: per pitocin protocol Delivery augmentation: rupture of membranes and pitocin Delivery monitor: external FHT and external uterine Route of delivery: Episiotomy Description: none L&D Laceration Description: perineal - 1st degree Delivery repair: Vicryl Estimated blood loss (mL): 200 Anesthesia type: Epidural Disposition: floor Infant Delivery date: 08/28/23 Gender: male presentation: vertex Placental delivery description: Spontaneous cord description: 3 Vessels
[2023-08-28] MEDS: OXYTOCIN/0.9 % SODIUM CHLORIDE 20 UNITS/1,000 ML PLAST..BAG 125 UNIT IV (17:37)
[2023-08-28] MEDS: IBUPROFEN 600 MG TABLET PO (20:28)
[2023-08-29 04:16] VITALS: BP 116/62; PULSE 71; RESP 16; TEMP 36.5
[2023-08-29] MEDS: IBUPROFEN 600 MG TABLET PO ×3 (05:15→18:20)
[2023-08-29 05:58] LABS: Hematocrit 37.7 % (36.0-48.0); Hemoglobin 12.2 g/dL (12.0-16.0); Mean Corpuscular HGB Conc 32.4 g/dL (29.9-35.2); Mean Corpuscular Hemoglobin 30.5 pg (26.7-34.0); Mean Corpuscular Volume 94.3 fL (81.0-99.0); Mean Platelet Volume 9.4 fL (9.5-13.5); Platelet Count 387 10^3/uL (150-450); Red Cell Distribution Width 13.4 % (11.0-15.0); White Blood Count 18.3 10^3/uL (4.0-11.0)
[2023-08-29 06:11] LABS: Atypical Lymphocytes Abs Man 2.01; Eosinophils Absolute Manual 0.54 10^3/uL (0.00-0.70); Lymphocytes Absolute Manual 3.66 10^3/uL (1.20-3.80); Monocytes Absolute Manual 0.36 10^3/uL (0.30-0.80); Segmented Neut Absolute Manual 11.71 10^3/uL (1.4-6.5)
--- NOTE | 2023-08-29 07:34 | PM.OBPN ---
OB - PN: Subj Subjective Patient comments: no complaints and pain well controlled [place] status: doing well Exam Constitutional Vital Signs, click to edit/add: Last Vital Signs Temp 97.7 F 08/29/23 04:16 Pulse 71 08/29/23 04:16 Resp 16 08/29/23 04:16 BP 116/62 08/29/23 04:16 O2 Del Method Room Air 08/28/23 17:22 Documenting provider has reviewed patient's vital signs: yes Common normals: no apparent distress Respiratory Common normals: normal respiratory effort and clear to auscultation bilaterally Cardio Common normals: regular rate and regular rhythm GI Common normals: Normal to inspection, nondistended, normoactive bowel sounds present Extremity Common normals: no clubbing, cyanosis or edema Results Labs Labs: Short CBC 08/29/23 Range/Units 05:46 WBC 18.3 H (4.0-11.0) 10^3/uL Hgb 12.2 (12.0-16.0) g/dL Hct 37.7 (36.0-48.0) % Plt Count 387 (150-450) 10^3/uL OB - PN: A/P Plan - Vaginal Delivery day: 1 Plan: routine care, discharge home and follow up 6 weeks Time Spent with Patient Time: Total time spent is greater than 50% in coordination of care (as documented) at patient's floor/unit and/or counseling patient: Total time spent with greater than 50% in coordination of care (as documented) at patient's floor/unit and/or counseling patient: less than 15 minutes
[2023-08-29 08:30] VITALS: RESP 16; TEMP 37.1
[2023-08-29 09:20] VITALS: BP 108/63; PULSE 68
[2023-08-29] MEDS: DOCUSATE SODIUM 100 MG CAPSULE PO (10:47)
[2023-08-29] MEDS: GLYCERIN/WITCH HAZEL PADS 1 PAD TOPICAL (10:49)
[2023-08-29] MEDS: BENZOCAINE/MENTHOL 85 GRAM SPRAY BOTTLE 1 APPLIC TOPICAL (10:50)
[2023-08-29 18:20] VITALS: BP 138/72; PULSE 87; RESP 16; TEMP 36.6
== END 2023-08-29 19:40 | disposition home or self-care (01) | DRG 807 ==
PROVIDERS: Admitting Provider Obstetrics & Gynecology; PCP Family Medicine; Visit Provider Obstetrics & Gynecology
DX: O24.429 Gestational diabetes mellitus in childbirth, unspecified control (principal); Z37.0 Single live birth; O70.0 First degree perineal laceration during delivery; Z3A.39 39 weeks gestation of pregnancy; O26.893 Other specified pregnancy related conditions, third trimester; Z67.11 Type A blood, Rh negative; Z85.3 Personal history of malignant neoplasm of breast
CPT/HCPCS: 36415; 59050; 59410; 80307; 85007; 85027; 86850; 86900; 86901; 96374

== ENCOUNTER 2023-09-01 08:30 | Outpatient (OUT) | payer OTHER, SELFPAY ==
--- OUTSIDE RECORDS SUMMARY | 2023-09-01 08:36 | XMS_ITS | CCD ---
Author Name Unknown Address [address] [facility] [address] [place] [id number] Organization [facility] Care Team Providers Care [employer] Name Role Phone Prema Guillen DO Primary Care Provider TORI ., DR HWANG Attending Unavailable TORI ., DR HWANG Consulting Unavailable TORI ., DR HWANG Primary Care Unavailable TORI ., DR HWANG Admitting Unavailable Prema Guillen DO Primary Care Provider MONIQUE KELLY Attending Unavailable ERI VALLE Attending Unavailable MONIQUE KELLY Attending Unavailable TORI, ERI Attending Unavailable MONIQUE KELLY Attending Unavailable MONIQUE KELLY Attending Unavailable TORI, ERI Attending Unavailable ERI VALLE Attending Unavailable Allergies Allergy Classification Reported Allergen(s) Allergy Type Date of Onset Reaction(s) Facility (5 sources) Penicillins; Translations: [Penicillins] Propensity to adverse reactions to drug 7 [facility] (3 sources) Benzathine penicillin - chemical [...] (1 source) Progestin, Estrogen norgestimate-ethin yl estradiol (Coffee-Linyah) 0.25-35 MG-MCG tablet Take 1 tablet by [...] UA Negative Negative - 4(70) +++ mg/dL [facility] Blood, UA Negative Negative - 50 Farooq/mcL [facility] Clarity, UA Clear [facility] Color, UA Yellow [facility] Glucose, UA Negative Negative - 1999(110) ++++ mg/dL [facility] Interpretation and review of laboratory results Abnormal [facility] Ketones, UA Positive Negative - 160(16) ++++ mg/dL [facility] Leukocytes, UA Positive Negative - 500+++ Mir/mcL [facility] Nitrite, UA Negative Negative - Positive [facility] pH, UA 7.0 5 - 9 [facility] Protein, UA Trace Negative - 1999(20) ++++ mg/dL [facility] Spec Grav, UA 1.030 1 - 1.03 [facility] Urobilinogen, UA 0.2 0.2 - 12 mg/dL [facility] Urinalysis macro (dipstick) panel (U)on 08-06-2023 Bilirubin, UA Positive Negative - 4(70) +++ mg/dL [facility] Blood, UA Positive Negative - 50 Farooq/mcL [facility] Clarity, UA Clear [facility] Color, UA Yellow [facility] Glucose, UA Negative Negative - 1999(110) ++++ mg/dL [facility] Interpretation and review of laboratory results Abnormal [facility] Ketones, UA Positive Negative - 160(16) ++++ mg/dL [facility] Leukocytes, UA Positive Negative - 500+++ Mir/mcL [facility] Nitrite, UA Negative Negative - Positive [facility] pH, UA 5.5 5 - 9 [facility] Protein, UA Positive Negative - 1999(20) ++++ mg/dL [facility] Spec Grav, UA 1.030 1 - 1.03 [facility] Urobilinogen, UA 1.0 0.2 - 12 mg/dL [facility] PAP ACOG PANEL 2: 30 to 65on 09-19-2022 . . Normal [facility] Comment on above: Result Comment: Perf ormed at: WB Performed By: #### [id number] #### [facility] [address] [address] [address] Eduardo Sandoval Age Gdln ACOG Testing 30-65 Normal [facility] Comment on above: Performed By: #### [id number] #### [facility] [address] [address] [address] Eduardo Sandoval DIAGNOSIS: Comment Normal [facility] Comment on above: Result Comment: NEGA TIVE FOR INTRAEPITHELIAL LESION OR MALIGNANCY. CELLULAR CHANGES ASSOCIATED WITH INFLAMMATION ARE PRESENT. Performed at: WB Performed By: #### [id number] #### [facility] [address] [address] [address] Eduardo Sandoval HPV Aptima Positive Abnormal Negative [facility] Comment on above: Result Comment: This nucleic acid amplification test detects fourteen high-risk HPV types (16,18,31,33,35,39,45,51,52,56,58,59,66,68) without differentiation. Performed at: =G Performed By: #### [id number] #### [facility] [address] [address] [address] Eduardo Sandoval HPV Genotype 16 Negative Normal Negative [facility] Comment on above: Performed By: #### [id number] #### [facility] [address] [address] [address] Eduardo Sandoval HPV Genotype 18,45 Negative Normal Negative [facility] Comment on above: Performed By: #### [id number] #### [facility] [address] [address] [address] Eduardo Sandoval HPV Genotype Reflex Comment Normal [facility] Comment on above: Result Comment: Pietro dillon, see HPV Genotype results. Performed at: WB Performed By: #### [id number] #### [facility] [address] [address] [address] Eduardo Sandoval Methodology: Comment Normal [facility] Comment on above: Result Comment: This liquid based ThinPrep(R) pap test was screened with the use of an image guided system. Performed at: WB Performed By: #### [id number] #### [facility] [address] [place] [address] Dr. Eduardo Sandoval Note: Comment Normal [facility] Comment on above: Result Comment: The Pap smear is a screening test designed to aid in the detection of premalignant and malignant conditions of the uterine cervix. It is not a diagnostic procedure and should not be used as the sole means of detecting cervical cancer. Both false-positive and false-negative reports do occur. . Performed at: WB Performed By: #### [id number] #### [facility] [address] [address] [address] Eduardo Sandoval Performed by: Comment Normal [facility] Comment on above: Result Comment: Zabrina Rivera, Television Director Performed at: WB Performed By: #### [id number] #### [facility] [address] [place] [address] Dr. Eduardo Sandoval Specimen adequacy: Comment Normal [facility] Comment on above: Result Comment: Sati sfactory for evaluation. Endocervical and/or squamous metaplastic cells (endocervical component) are present. Areas of partially obscuring inflammatory exudate are present. Performed at: WB Performed By: #### [id number] #### [facility] [address] [place] [address] Dr. Eduardo Sandoval Vital Signs Date Time Vital Sign Value Performing Clinician Facility 08-13-2023 14:05-0500 Body mass index (BMI) [Ratio] 35.39 kg/m2 [employer] DO Work Phone: [facility] 08-13-2023 14:05-0500 Body weight 90.63 kg [employer] Work Phone: [facility] 08-13-2023 14:05-0500 Diastolic blood pressure 74 mm[Hg] [employer] Work Phone: [facility] 08-13-2023 14:05-0500 Systolic blood pressure 118 mm[Hg] [employer] Work Phone: [facility] 08-06-2023 10:26-0500 Body mass index (BMI) [Ratio] 34.86 kg/m2 Monique Kelly PA Work Phone: [facility] 08-06-2023 10:26-0500 Body weight 89.27 kg Monique Coxey PA Work Phone: [facility] 08-06-2023 10:26-0500 Diastolic blood pressure 70 mm[Hg] Monique Kelly PA Work Phone: [facility] 08-06-2023 10:26-0500 Systolic blood pressure 114 mm[Hg] Monique Kelly PA Work Phone: [facility] 09-25-2021 12:49-0400 Body height 160 cm Dulce Coronado MD Work Phone: [facility] 09-25-2021 12:49-0400 Body mass index (BMI) [Ratio] 29.58 kg/m2 Dulce Coronado MD Work Phone: [phone] [place] [address] 09-25-2021 12:49-0400 Body temperature 98.49 [degF] Dulce [...] Date Encounter Type Care Provider Facility Start: 08-20-2023 End: 08-20-2023 ambulatory ERI TORI Not Available Start: 08-13-2023 End: 08-13-2023 ambulatory ERI TORI Not Available Start: 08-13-2023 End: 08-13-2023 flow sheet Eri Tori DO Work Phone: [facility] Comment on above: Third trimester preg leo; Excessive growth affecting management of in third trimester, single or unspecified fetus Start: 08-06-2023 End: 08-06-2023 ambulatory MONIQUE LETICIA Not Available Start: 08-06-2023 End: 08-06-2023 flow sheet Monique Kelly PA Work Phone: [facility] Comment on above: Third trimester preg leo Start: 07-23-2023 End: 07-23-2023 ambulatory ERI TORI Not Available Start: 07-08-2023 End: 07-08-2023 ambulatory MONIQUE KELLY Not Available Start: 06-24-2023 End: 06-24-2023 ambulatory ERI TORI Not Available Start: 06-10-2023 End: 06-10-2023 ambulatory MONIQUE LETICIA Not Available Start: 05-27-2023 End: 05-27-2023 ambulatory MONIQUE COXEY Not Available Start: 09-10-2022 End: 09-10-[address] ERI VALLE . Facility: Start: 09-25-2021 End: 09-25-2021 Office outpatient new 30 minutes Dulce Coronado MD Work Phone: [facility] Comment on above: Breast [...] PM EDT Office Visit [place] [address] Eri Valle, DO [address] [place] [address] [facility] Start: 08-20-2023 End: 08-20-2023 Patient encounter procedure 08/20/2023 3:50 PM EST Routine [facility] [address] [place] [address] Eri Valle, DO [address] [place] [address] [facility] Start: 08-13-2023 End: 08-13-2023 Patient encounter procedure 08/13/2023 2:00 PM EST Routine [facility] [address] [place] [id number] Eri Valle, DO [address] [place] [address] [facility] Start: 08-13-2023 End: 08-13-2024 US for US OB SCAN FOR GROWTH Imaging Routine Excessive growth affecting management of in third trimester, single or unspecified fetus Expected: 08/13/2023 (Approximate), Expires: 08/13/2024 [facility] Work Phone: Comment on above: Expected: 08/13/2023 (Approximate), Expires: 08/13/2024 Start: 02-28-2021 Influenza vaccination INFLUENZA VACC INE (#1) [facility] Start: 2010 Screening for malign ant neoplasm of cervix CERVICAL CANCER SCREENING DISCUSSION [facility] Start: 01-23-2008 Third diphtheria, tetanus and acellular pertussis (DTaP) vaccination TDAP (ADULT) [facility] Start: 2007 Tetanus vaccination TETANUS [facility] Start: 01-23-2004 HIV screening HIV SCREENING [...] Payers Date Payer Category Payer Unknown [place] [id number] 2022-Present [address] [address] [place] [address] [id number] 2022 Unknown [id number] 2021 Private Health Insurance [employer] Peyton MEREDITH [id number] 2021-Present [address] [place] [address] [id number] 1989 Unknown [id number] 1989 Unknown [id number] 1989 Unknown [id number] .1259 1989 Unknown [id number] .1259 1989 Unknown [id number] [id number] .1259 1989 Unknown [id number] [id number] .1259 1989 Unknown [id number] .1259 1989 Unknown [id number] [id number] .1259 1989 Unknown [id number] .125 1959 Unknown [id number] Social History Date Type Detail Facility Start: 09[facility]25-[facility] History of tobacco use Cigarette Smoker A [facility] Start: 09-25-2021 Tobacco use and exposure Smokeless tobacco non-user [facility] Start: 09-25-2021 End: 08-13-2023 Alcohol intake Current drinker of alcohol (finding) [facility] Start: 09-25-2021 History SDOH Alcohol Comment Occasionally [facility] Start: 1990 Sex Assigned At Not on file A [facility] Start: 04-15-2023 [facility] tobacco [facility] Start: 04-15-2023 History of Social function [facility] Start: 04-15-2023 Tobacco use panel [facility] Start: 12-06-2022 [facility] Equipment Procedure Code Equipment Code Equipment Origin al Text Equipment Identifier Dates 1 each by Other route in the morning and 1 each at noon and 1 each in the evening and 1 each before bedtime. Use as instructed. [id number] Start: 06-10-2023 End: 07-04-2024 History of Present [...] nursing note reviewed. Exam conducted with a writing center director present. Vitals: Estimated body mass index [...] nursing note reviewed. Exam conducted with a writing center director present. Vitals: Estimated body mass index [...] Medications Medication Sig Dispense Refill norgestimate-ethinyl estradiol (Coffee-Linyah) 0.25-35 MG-MCG tablet Take 1 tablet by [...] pain History of dimpling of breast skin Tori, Eri R, DO [address] [facility] [address] [place] [address] Dulce Coronado MD [address] [place] [address] Referral ID Status Reason Start Date Expiration Date V isits Requested Visits Authorized [id number] Pending Review 09/14/2021 10/09/2022 1 1 Reason Comments Routine Visit Care Teams (unrecognized sec tion and content) [employer] Relationship Specialty Start Date End Date Prema Guillen DO [address] [place] [address] PCP - General Family Medicine 09/25/21 [employer] Relationship Specialty Start Date End Date Prema Guillen DO [address] [place], [place] [id number] PCP - General Family Medicine 12/23/22 [employer] Relationship Specialty Start Date End Date Prema Guillen DO [address] [place], [place] [id number] PCP - General Family Medicine 12/23/22 INFORMATION SOURCE (unrecogn ized section and content) DATE CREATED AUTHOR 09/20/2022 [facility] DATE CREATED AUTHOR AUTHOR'S ORGANIZ ATION 08/28/2023 [facility] d[facility] Special[facility] FOR RECORDS PERTAINING TO PATIENTS [...] BE BASED ON THE PRIMARY CLINICAL RECORDS. [employer] provides no warranty or guarantee of the accuracy or completeness of information in this document.
--- NOTE | 2023-09-01 20:28 | PC.NURSE ---
Sangita and Lamonte arrive for follow up visit. Parents tired but working well together. Baby eats every 2-3 hours Parents validated that NB care is stressful and busy work. Encouraged to continue to respond to infant needs of frequenst feeds and skin to skin. Dr Conti in and checks circ site. Site clear no bleeding or drainage noted. Sangita VSS and Assessment WNL. Denies needs for self. Encouraged to continue to use water bottle after voiding or stools as perineum tender. Has not been doing pericare at home . thought that was at the hospital only Breast full and nipples intact. Assisted with positioning for deeper latch and pt states that feels so much better Lamonte assessed, VSS and all WNL. Cord off during weight. Parents educated on cord care after falling off. Infant to breast. Slight position changes and deeper latch to increase comfort for mom. with multiple swallows and content after feeds. Leaves ambulatory for home, will call as needed.
[2023-09-01 20:30] VITALS: BP 126/83; PULSE 82; RESP 18; TEMP 36.8; O2SAT 96
== END 2023-09-01 17:40 | disposition home or self-care (01) ==
LOC: FBCO 08:32
PROVIDERS: PCP Family Medicine; Visit Provider Obstetrics & Gynecology
DX: Z39.2 Encounter for routine postpartum follow-up (principal)

== ENCOUNTER 2023-12-02 21:29 | Outpatient (REF) | payer OTHER, SELFPAY ==
--- OUTSIDE RECORDS SUMMARY | 2023-12-02 21:38 | XMS_ITS | CCD ---
Author Organization [facility] Care Team Providers Care Pharmaceutical Laboratory Technician Name Role Phone Prema Guillen DO Primary Care Provider TORI ., DR HWANG Attending Unavailable TORI ., DR HWANG Consulting Unavailable TORI ., DR HWANG Primary Care Unavailable TORI ., DR HWANG Admitting Unavailable Prema Guillen DO Primary Care Provider MONIQUE KELLY Attending Unavailable TORI, ERI Attending Unavailable LETICIA, MONIQUE Attending Unavailable TORI, ERI Attending Unavailable TORI, ERI Attending Unavailable LETICIA, MONIQUE Attending Unavailable LETICIA, MONIQUE Attending Unavailable LETICIA, MONIQUE Attending Unavailable TORI, ERI Attending Unavailable TORI, ERI Attending Unavailable Allergies Allergy Classification Reported Allergen(s) Allergy Type Date of Onset Reaction(s) Facility (5 sources) Penicillins; Translations: [Penicillins] Propensity to adverse reactions to drug 7 [facility] (3 sources) Benzathine penicillin - chemical [...] (1 source) Progestin, Estrogen norgestimate-ethin yl estradiol ([place]-Linyah) 0.25-35 MG-MCG tablet Take 1 tablet by [...] UA Negative Negative - 4(70) +++ mg/dL [facility] Blood, UA Negative Negative - 50 Farooq/mcL [facility] Clarity, UA Clear [facility] Color, UA Yellow [facility] Glucose, UA Negative Negative - 1999(110) ++++ mg/dL [facility] Interpretation and review of laboratory results Abnormal [facility] Ketones, UA Positive Negative - 160(16) ++++ mg/dL [facility] Leukocytes, UA Positive Negative - 500+++ Imr/mcL [facility] Nitrite, UA Negative Negative - Positive [facility] pH, UA 7.0 5 - 9 [facility] Protein, UA Trace Negative - 1999(20) ++++ mg/dL [facility] Spec Grav, UA 1.030 1 - 1.03 [facility] Urobilinogen, UA 0.2 0.2 - 12 mg/dL [facility] Urinalysis macro (dipstick) panel (U)on 08-06-2023 Bilirubin, UA Positive Negative - 4(70) +++ mg/dL [facility] Blood, UA Positive Negative - 50 Farooq/mcL [facility] Clarity, UA Clear [facility] Color, UA Yellow [facility] Glucose, UA Negative Negative - 1999(110) ++++ mg/dL [facility] Interpretation and review of laboratory results Abnormal [facility] Ketones, UA Positive Negative - 160(16) ++++ mg/dL [facility] Leukocytes, UA Positive Negative - 500+++ Mir/mcL [facility] Nitrite, UA Negative Negative - Positive [facility] pH, UA 5.5 5 - 9 [facility] Protein, UA Positive Negative - 1999(20) ++++ mg/dL [facility] Spec Grav, UA 1.030 1 - 1.03 [facility] Urobilinogen, UA 1.0 0.2 - 12 mg/dL [facility] PAP ACOG PANEL 2: 30 to 65on 09-19-2022 . . Normal [facility] Comment on above: Result Comment: Perf ormed at: WB Performed By: #### [id number] #### [facility] [address] [address] [address] Eduardo Sandoval Age Gdln ACOG Testing 30-65 Normal [facility] Comment on above: Performed By: #### [id number] #### [facility] [address] [address] [address] Eduardo Sandoval DIAGNOSIS: Comment Normal [facility] Comment on above: Result Comment: NEGA TIVE FOR INTRAEPITHELIAL LESION OR MALIGNANCY. CELLULAR CHANGES ASSOCIATED WITH INFLAMMATION ARE PRESENT. Performed at: WB Performed By: #### [id number] #### [facility] [address] [place] [address] Dr. Eduardo Sandoval HPV Aptima Positive Abnormal Negative [facility] Comment on above: Result Comment: This nucleic acid amplification test detects fourteen high-risk HPV types (16,18,31,33,35,39,45,51,52,56,58,59,66,68) without differentiation. Performed at: =G Performed By: #### [id number] #### [facility] [address] [place] [address] Dr. Eduardo Sandoval HPV Genotype 16 Negative Normal Negative [facility] Comment on above: Performed By: #### [id number] #### [facility] [address] [address] [address] Eduardo Sandoval HPV Genotype 18,45 Negative Normal Negative [facility] Comment on above: Performed By: #### [id number] #### [facility] [address] [address] [address] Eduardo Sandoval HPV Genotype Reflex Comment Normal [facility] Comment on above: Result Comment: Pietro dillon, see HPV Genotype results. Performed at: WB Performed By: #### [id number] #### [facility] [address] [place] [address] Dr. Eduardo Sandoval Methodology: Comment Normal [facility] Comment on above: Result Comment: This liquid based ThinPrep(R) pap test was screened with the use of an image guided system. Performed at: WB Performed By: #### [id number] #### [facility] [address] [place] [address] Dr. Eduardo Sandoval Note: Comment Normal [facility] Comment on above: Result Comment: The Pap smear is a screening test designed to aid in the detection of premalignant and malignant conditions of the uterine cervix. It is not a diagnostic procedure and should not be used as the sole means of detecting cervical cancer. Both false-positive and false-negative reports do occur. . Performed at: WB Performed By: #### [id number] #### [facility] [address] [place] [address] Dr. Eduardo Sandoval Performed by: Comment Normal [facility] Comment on above: Result Comment: Zabrina Rivera, Statistician Applied Performed at: WB Performed By: #### [id number] #### [facility] [address] [place] [address] Dr. Eduardo Sandoval Specimen adequacy: Comment Normal [facility] Comment on above: Result Comment: Sati sfactory for evaluation. Endocervical and/or squamous metaplastic cells (endocervical component) are present. Areas of partially obscuring inflammatory exudate are present. Performed at: WB Performed By: #### [id number] #### [facility] [address] [place] [address] Dr. Eduardo Sandoval Vital Signs Date Time Vital Sign Value Performing Clinician Facility 08-13-2023 14:05-0500 Body mass index (BMI) [Ratio] 35.39 kg/m2 [employer] DO Work Phone: [facility] 08-13-2023 14:05-0500 Body weight 90.63 kg [employer] DO Work Phone: [facility] 08-13-2023 14:05-0500 Diastolic blood pressure 74 mm[Hg] [employer] DO Work Phone: [facility] 08-13-2023 14:05-0500 Systolic blood pressure 118 mm[Hg] [employer] Work Phone: [facility] 08-06-2023 10:26-0500 Body mass index (BMI) [Ratio] 34.86 kg/m2 Monique Kelly PA Work Phone: [facility] 08-06-2023 10:26-0500 Body weight 89.27 kg Monique Leticia PA Work Phone: [facility] 08-06-2023 10:26-0500 Diastolic blood pressure 70 mm[Hg] Monique Kelly PA Work Phone: [facility] 08-06-2023 10:26-0500 Systolic blood pressure 114 mm[Hg] Monique Kelly PA Work Phone: [facility] 09-25-2021 12:49-0400 Body height 160 cm Dulce Coronado MD Work Phone: [facility] 09-25-2021 12:49-0400 Body mass index (BMI) [Ratio] 29.58 kg/m2 Dulce Coronado MD Work Phone: [phone] [place] [address] 09-25-2021 12:49-0400 Body temperature 98.49 [degF] Dulce Coronado MD Work Phone: [phone] [place] [address] 09-25-2021 12:49-0400 Body weight 75.75 kg Dulce Coronado MD Work Phone: [phone] [place] [address] 09-25-2021 12:49-0400 Diastolic blood pressure 70 mm[Hg] Dulce Coronado MD Work Phone: [facility] 09-25-2021 12:49-0400 Heart rate 80 /min Dulce Coronado MD Work Phone: [facility] 09-25-2021 12:49-0400 Systolic blood pressure 131 mm[Hg] Dulce Coronado MD Work Phone: [facility] Encounters Encounter Date Encounter Type Care Provider Facility Start: 11-04-2023 End: 11-04-2023 ambulatory ERI VALLE Not Available Start: 10-07-2023 End: 10-07-2023 ambulatory MONIQUE LETICIA Not Available Start: 08-20-2023 End: 08-20-2023 ambulatory ERI TORI [...] Available Start: 05-27-2023 End: 05-27-2023 ambulatory MONIQUE LETICIA Not Available Start: 09-10-2022 End: 09-10-[address] ERI VALLE . Facility: Start: 09-25-2021 End: 09-25-2021 Office outpatient new 30 minutes Dulce Coronado MD Work Phone: [facility] Comment on above: Breast [...] Visit [facility] [address] [place] [address] Eri Valle, DO [address] [place] [address] [facility] Start: 08-20-2023 End: 08-20-2023 Patient encounter procedure 08/20/2023 3:50 PM EST Routine [facility] [address] [place] [address] Eri Valle, DO [address] [place] [address] [facility] Start: 08-13-2023 End: 08-13-2023 Patient encounter procedure 08/13/2023 2:00 PM EST Routine [facility] [address] [place] [address] Eri Valle, DO [address] [place] [address] [facility] Start: 08-13-2023 End: 08-13-2024 US for US OB SCAN FOR GROWTH Imaging Routine Excessive growth affecting management of in third trimester, single or unspecified fetus Expected: 08/13/2023 (Approximate), Expires: 08/13/2024 [facility] Work Phone: Comment on above: Expected: 08/13/2023 (Approximate), Expires: 08/13/2024 Start: 02-28-2021 Influenza vaccination INFLUENZA VACC INE (#1) [facility] Start: 2010 Screening for malign ant neoplasm of cervix CERVICAL CANCER SCREENING DISCUSSION [facility] Start: 01-23-2008 Third diphtheria, tetanus and acellular pertussis (DTaP) vaccination TDAP (ADULT) [facility] Start: 2007 Tetanus vaccination TETANUS [facility] Start: 01-23-2004 HIV screening HIV SCREENING DISCUSSION [facility] Start: 1994 COVID-19 VACCINE (1) COVID-19 VACCIN E (1) [facility] Start: 1989 Hepatitis C antibody , confirmatory test HEPATITIS C VIRUS SCREENING [facility] GBS swab, PCR GBS swab, PCR La b Routine Third trimester Ordered: 08/06/2023 [facility] Work Phone: Comment on above: Ordered: 08/06/2023 Payers Date Payer Category Payer Unknown [place] [id number] 2022-Present [address] [address] [place] [address] [id number] 2022 Unknown [id number] 2021 Private Health Insurance [employer] A REGINA MEREDITH [id number] 2021-Present [address] [place] [address] [id number] 1989 Unknown [id number] 1989 Unknown [id number] [id number] .9 1989 Unknown [id number] [id number] .9 1989 Unknown [id number] .1259 1989 Unknown [id number] [id number] .1258 1989 Unknown [id number] [id number] .9 1989 Unknown [id number] [id number] .9 1989 Unknown [id number] [id number] .1259 1989 Unknown [id number] [id number] .1259 1989 Unknown [id number] [id number] .1259 1989 Unknown [id number] .1259 1959 Unknown [id number] Social History Date Type Detail Facility Start: 09-25-2021 [facility] History of tobacco use Cigarette Smoker A [facility] Start: 09-25-2021 Tobacco use and exposure Smokeless tobacco non-user [facility] Start: 09-25-2021 End: 08-13-2023 Alcohol intake Current drinker of alcohol (finding) [facility] Start: 09-25-2021 History SDOH Alcohol Comment Occasionally [facility] Start: 1989 Sex Assigned At Not on file A [facility] Start: 04-15-2023 Tobacco smoking stat [facility] Never smoked tobacco [facility] Start: 04-15-2023 History of Social function [facility] Start: 04-15-2023 Tobacco use panel [facility] Start: 12-06-2022 [facility] Equipment Procedure Code Equipment Code Equipment Origin al Text Equipment Identifier Dates 1 each by Other route in the morning and 1 each at noon and 1 each in the evening and 1 each before bedtime. Use as instructed. [id number] Start: 06-10-2023 End: 07-04-2024 History of Present [...] nursing note reviewed. Exam conducted with a adult literacy instructor present. Vitals: Estimated body mass index is [...] high risk HPV BMI 28.0-28.9,adult Breast cancer ([facility]) Cystic breast Dense breast tissue on mammogram [...] nursing note reviewed. Exam conducted with a adult literacy instructor present. Vitals: Estimated body mass index is 34.86 kg/m as calculated from the following: Height as of 23: 5' 3 . Weight as of this [...] Medications Medication Sig Dispense Refill norgestimate-ethinyl estradiol ([place]-Linyah) 0.25-35 MG-MCG tablet Take 1 tablet by [...] back PRN. documented in this encounter [facility] Evaluation note Note Date & Type Note Facility Evaluation note Diagnosis Breast cyst, right- Primary documented in this encounter [facility] Evaluation note Note Date & Type [...] fluid. Specialty Diagnoses / Procedures Referred By Contac t Referred To Contact Plastic Surgery Diagnoses Breast pain History of dimpling of breast skin Eri Valle, DO [address] [facility] [address] [place] [address] Dulce Coronado MD [address] [place] [address] Referral ID Status Reason Start Date Expiration Date V isits Requested Visits Authorized [id number] Pending Review 09/14/2021 10/09/2022 1 1 Reason Comments Routine Visit Care Teams (unrecognized sec tion and content) Pharmaceutical Laboratory Technician Relationship Specialty Start Date End Date Prema Guillen DO [address] [place] [address] PCP - General Family Medicine 09/25/21 Pharmaceutical Laboratory Technician Relationship Specialty Start Date End Date Prema Guillen DO [address] [place], [place] [id number] PCP - General Family Medicine 12/23/22 Pharmaceutical Laboratory Technician Relationship Specialty Start Date End Date Prema Guillen DO [address] [place] [address] PCP - General Family Medicine 12/23/22 INFORMATION SOURCE (unrecogn ized section and content) DATE CREATED AUTHOR 09/20/2022 [facility] DATE CREATED AUTHOR 'S ORGANIZ ATION 11/05/2023 [facility] dical Specialists EPIC FOR RECORDS PERTAINING [...] BE BASED ON THE PRIMARY CLINICAL RECORDS. [facility]. provides no warranty or guarantee of the accuracy or completeness of information in this document.
[2023-12-08 20:11] LABS: Age Gdln ACOG Testing Note (.); HPV Aptima Negative (Negative); IGP, Aptima HPV, rfx 16/18,45 Note (.)
== END 2023-12-02 21:30 | disposition home or self-care (01) ==
LOC: LAB 21:29
PROVIDERS: PCP Family Medicine; Visit Provider Obstetrics & Gynecology
DX: Z01.419 Encounter for gynecological examination (general) (routine) without abnormal findings (principal)
CPT/HCPCS: 87624; 88175

== ENCOUNTER 2024-12-08 19:53 | Outpatient (REF) | payer OTHER, SELFPAY ==
--- OUTSIDE RECORDS SUMMARY | 2024-12-08 14:00 | XMS_ITS | Encounter Summary ---
Author Organization [facility] Address [address] [place] [address] Care Team Providers Care Dental Office Receptionist Name Role Phone Prema Guillen DO Primary Care Provider [phone] Reason for Visit * Reason Comments Gynecologic Exam Encounter Details Date Type Department Care Team ([facility] st Contact Info) Description 12/08/2024 2:00 PM EDT Office Visit [facility] [address] [place] [address] Kali Valle DO [address] [place], [facility] Well woman exam with routine gynecological exam Social History Tobacco Use Types Packs/Day Years Used Date Smoking Tobacco: Never Alcohol Use Standard Drinks/Week Comments Yes 0 (1 standard drink = 0.6 oz pur e alcohol) Comments No Sex and Gender Information Value Date Recorded Sex Assigned at Not on file Legal Sex Female 11:19 PM EDT Gender Identity Not on file Sexual Orientation Not on file documented as of this encounter Last Filed Vital Signs Vital Sign Reading Time Taken Comments Blood Pressure 118/72 12/08/2024 1:55 PM EDT Pulse - - Temperature - - Respiratory Rate - - Oxygen Saturation - - Inhaled Oxygen Concentration - - Weight 83 kg (183 lb) 12/08/2024 1:55 PM EDT Height - - Body Mass Index 32.42 09/10/2022 12:00 PM EDT documented in this encounter Progress Notes * Davina Ruvalcaba LPN - 12/08/2024 2:00 PM EDT Reason for Appointment: Patient ID: Sangita Prather is a 34 y.o. female who presents for Gynecologic Exam Patient presents today for Annual Exam. 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 Nipple discharge in female Nipple problem HISTORY PAST MEDICAL HISTORY SOCIAL HISTORY Past Medical History: Diagnosis Date ASCUS of cervix with negative high risk HPV BMI 28.0-28.9,adult Breast cancer (CMS/HCC) Cystic breast right Dense breast tissue on mammogram Encounter for gynecological examination (general) (routine) without abnormal findings Galactorrhea LGSIL on Pap smear of cervix Nipple discharge in female Nipple problem Social History Tobacco Use Smoking status: Never Smokeless tobacco: Not on file Substance Use Topics Alcohol use: Yes Drug use: Never FAMILY HISTORY Family History Problem Relation Name Age of Onset Mental illness Mother Pancreatic cancer Mother's Sister Mental illness Sibling SURGICAL HISTORY Past Surgical History: Procedure Laterality Date CYST REMOVAL 04/2021 right breast duct/cyst-Wiecek REVIEW OF SYSTEMS Review of Systems: Review of Systems Constitutional: Negative. HENT: Negative. Eyes: Negative. Respiratory: Negative. Cardiovascular: Negative. Gastrointestinal: Negative. Genitourinary: Negative. Musculoskeletal: Negative. Skin: Negative. Neurological: Negative. All other systems reviewed and are negative. Hematological: Negative. Endocrine: Negative. Allergic/Immunologic: Negative. OBJECTIVE Objective: Physical Exam Constitutional: Appearance: Normal appearance. She is well-developed. Genitourinary: Vulva normal. Cardiovascular: Rate and Rhythm: Normal rate and [...] nursing note reviewed. Exam conducted with a ui software engineer present. Vitals: Estimated body mass index is 32.42 kg/m?? as calculated from the following: Height as of 09/10/22: 5' 3 . Weight as of this encounter: 183 lb. BP: 118/72 No LMP recorded (lmp unknown). (Menstrual status: IUD). ASSESSMENT & PLAN ICD-10-CM 1. Well woman exam with routine gynecological exam Z01.419 Pap Smear HPV DNA probe, amplified Annual Exam: Patient presents today for an annual exam. Patient states she is doing well and has no complaints. Pap was obtained without difficulty. Orders Placed This Encounter Procedures HPV DNA probe, amplified Follow Up: Patient is to return in one year for annual unless needed otherwise. Documented by Davina Ruvalcaba LPN on behalf of: Kali Valle DO documented in this encounter Plan of Treatment Upcoming Encounters Date Type Department Care Team (Late st Contact Info) Description 12/14/2025 3:00 PM EDT Office Visit [facility] [address] [place] [address] Kali Valle DO [address] [place] [address] Scheduled Orders Name Type Priority Associated Diagnoses Orde r Schedule Pap Smear Pathology and Cytology Routine Well woman exam with routine gynecological exam Ordered: 12/08/2024 HPV DNA probe, amplified Microbiology Routine Well woman exam with routine gynecological exam Ordered: 12/08/2024 documented as of this encounter Visit Diagnoses Diagnosis Well woman exam with routine gynecological exam Routine gynecological examination documented in this encounter Care Teams Dental Office Receptionist Relationship Specialty Start Date End Date Prema Guillen DO [address] [place] [address] PCP - General Family Medicine 12/23/22 documented as of this encounter
--- OUTSIDE RECORDS SUMMARY | 2024-12-08 19:58 | XMS_ITS | Encounter Summary ---
Author Organization [facility] Address [address] [facility] [place] [address] Care Team Providers Care Ethnographic Materials Conservator Name Role Phone Prema Guillen DO Primary Care Provider [phone] Encounter Details Date Type Department Care Team (Late Contact Info) Description 09/08/2023 Abstract [facility] [address] [place] [address] Karishma Church LPN [address] [facility] [address] [facility] Social History Tobacco Use Types Packs/Day Years Used Date Smoking Tobacco: Never Alcohol Use Standard Drinks/Week Comments Yes 0 (1 standard drink = 0.6 oz pur e alcohol) Comments Yes Sex and Gender Information Value Date Recorded Sex Assigned at Not on file Legal Sex Female 11:19 PM EDT Gender Identity Not on file Sexual Orientation Not on file documented as of this encounter Plan of Treatment Upcoming Encounters Date Type Department Care Team ([facility] Contact Info) Description 12/14/2025 3:00 PM EDT Office Visit [facility] [address] [place] [address] Kali Valle [address] [place] [address] documented as of this encounter Visit Diagnoses Not on filedocumented in this encounter Care Teams Ethnographic Materials Conservator Relationship Specialty Start Date End Date Prema Guillen DO [address] [place], [place] [id number] PCP - General Family Medicine 12/23/22 documented as of this encounter
--- OUTSIDE RECORDS SUMMARY | 2024-12-08 19:58 | XMS_ITS | Clinical Summary ---
Author Organization [facility] Healthcare Address [address] [place] [address] Care Team Providers Care Tower Attendant Name Role Phone Prema Guillen DO Primary Care Provider [phone] Allergies Active Allergy Reactions Criticality Noted Date Comments Penicillin G Benzathine 01/30/2023 Penicillins Rash Low 04/24/2017 Medications Hospital, Clinic, or Other Facility Administered Medication Ordered Dose Route Frequency Start Date End Date Status copper (Paragard) IUDIndications:Encounter for insertion of intrauterine contraceptive device (IUD) IU Continuous 11/04/2023 11/01/2033 Active Resolved Problems Problem Noted Date Diagnosed Date Resolved Date Third [facility] 06/24/2023 08/28/2023 Rh negative, antepartum ([facility]) 06/24/2023 08/28/2023 Encounters Date Type Department Care Team Description 12/08/2024 2:00 PM EDT Office Visit [facility] [address] [place] [address] [place] [address] Kali Valle DO Well woman exam with routine gynecological exam 12/08/[address] [facility] [address] [place] [address] [place] [address] Kali Valle DO from Last 3 Months Family History Medical History Relation Name Comments Mental illness Mother Pancreatic cancer Mother's Sister Mental illness Sibling Relation Name Status Comments Brother 1 Daughter Arti Alive Father Alive Mother Alive Mother's Sister Other Sibling Sister 1 Social History Tobacco Use Types Packs/Day Years Used Date Smoking Tobacco: Never Tobacco Cessation:Counseling Given: Not Answered Alcohol Use Standard Drinks/Week Comments Yes 0 (1 standard drink = 0.6 oz pur e alcohol) Comments No Sex and Gender Information Value Date Recorded Sex Assigned at Not on file Legal Sex Female 11:19 PM EDT Gender Identity Not on file Sexual Orientation Not on file Last Filed Vital Signs Vital Sign Reading Time Taken Comments Blood Pressure 118/72 12/08/2024 1:55 PM EDT Pulse - - Temperature - - Respiratory Rate - - Oxygen Saturation - - Inhaled Oxygen Concentration - - Weight 83 kg (183 lb) 12/08/2024 1:55 PM EDT Height 160 cm (5' 3 ) 09/10/2022 12:00 PM EDT Body Mass Index 32.42 09/10/2022 12:00 PM EDT Plan of Treatment Upcoming Encounters Date Type Department Care Team (Late st Contact Info) Description 12/14/2025 3:00 PM EDT Office Visit [facility] [address] [place] [address] Kali Valle DO [address] [place], [place] [id number] [facility] Care Teams Tower Attendant Relationship Specialty Start Date End Date Prema Guillen DO [address] [facility] [place] [address] PCP - General Family Medicine 12/23/22
--- OUTSIDE RECORDS SUMMARY | 2024-12-08 19:59 | XMS_ITS | Encounter Summary ---
Author Organization [facility] Address [address] [place] [address] Care Team Providers Care Director Sales Training Name Role Phone Prema Guillen DO Primary Care Provider [phone] Encounter Details Date Type Department Care Team (Late Contact Info) Description 07/30/2023 Clinisync Result Encounter [facility] External Department Unsolicited Ankush Kelly PA [address] [facility] [address] [place], [facility] Social History Tobacco Use Types [...] Encounters Date Type Department Care Team (Late Contact Info) Description 12/14/2025 3:00 PM EDT Office Visit [facility] [address] [facility] [place] [phone] Kali Valle DO [address] [place] [address] Dr [address]zo [place], [place] [address] documented as of this encounter Procedures Procedure Name Priority Date/Time Associated Diagnosis Comments US OB BPP W NON-STRESS 07/30/2023 6:28 AM EST documented in this encounter Results * US OB BPP W NON-STRESS (07/30/2023 6:28 AM EST) Anatomical Region Laterality Modality Other 07/30/2023 6:28 AM EST Narrative 07/30/2023 6:30 [place] [address] Ultrasound Report Signed Patient: SANGITA KENNY MR#: [id number] : 1990 Acct:[id number] Age/Sex: 33 / F ADM Date: 07/29/23 Loc: US Attending Dr: Ankush Kelly Ordering Physician: Ankush Kelly Date of Service: 07/29/23 Procedure(s): US OB BPP w non-stress Accession Number(s): [id number] cc: Ankush Kelly; Prema Guillen [place] [address] Patient Name: SANGITA KENNY MRN: [id number] date: 1990 Sex: F Assigned Patient Location: US Current Patient Location: Accession/Order Number: [id number] Exam Date: 07/29/2023 17:45 Report Date: 07/30/2023 06:28 At the request of: ANKUSH KELLY Procedure: US OB BPP w non-stress EXAMINATION: US OB BPP w non-stress HISTORY: EXCESSIVE GROWTH AFFECTING O36.63X0 COMPARISON: Ultrasound OB biophysical 07/22/2023 TECHNIQUE: Ultrasound biophysical profile was performed in the radiology department. BREATHING MOVEMENTS: 2.0 GROSS BODY MOVEMENTS: 2.0 TONE: 2.0 QUALITATIVE AMNIOTIC FLUID VOLUME: 2.0 PRESENTATION: CEPHALIC HEART RATE: 138.5 bpm bpm. AMNIOTIC FLUID VOLUME: 16.1 cm GESTATIONAL AGE: 35 weeks 4 days CONCLUSION: Total biophysical profile score 8.0. Electronically authenticated by: DAVID JORDAN Date: 07/30/2023 06:28 Dictated By: David Jordan M.D. Signed By: 07/30/23629 DD/ 7 TD/TT: Barge Hand: Procedure Note Radiology, Radiologist, - 09/03/2023 The [place] [id number] Ultrasound Report Signed Patient: SANGITA KENNY MMR#: [id number] : 1990Acct:[id number] Age/Sex: 33 / FADM Date: 07/29/23 Loc: US Attending Dr: Ankush Kelly Ordering Physician: Ankush Kelly Date of Service: 07/29/23 Procedure(s): US OB BPP w non-stress Accession Number(s): [id number] cc: Ankush Kelly; Prema Guillen [place] [address] Patient Name: SANGITA KENNY MRN: [id number] date: 1990 Sex: F Assigned Patient Location: US Current Patient Location: Accession/Order Number: [id number] Exam Date: 07/29/2023 17:45 Report Date: 07/30/2023 06:28 At the request of: ANKUSH KELLY Procedure: US OB BPP w non-stress EXAMINATION: US OB BPP w non-stress HISTORY: EXCESSIVE GROWTH AFFECTING O36.63X0 COMPARISON: Ultrasound OB biophysical 07/22/2023 TECHNIQUE: Ultrasound biophysical profile was performed in the radiology department. BREATHING MOVEMENTS: 2.0 GROSS BODY MOVEMENTS: 2.0 TONE: 2.0 QUALITATIVE AMNIOTIC FLUID VOLUME: 2.0 PRESENTATION: CEPHALIC HEART RATE: 138.5 bpm bpm. AMNIOTIC FLUID VOLUME: 16.1 cm GESTATIONAL AGE: 35 weeks 4 days CONCLUSION: Total biophysical profile score 8.0. Electronically authenticated by: DAVID JORDAN Date: 07/30/2023 06:28 Dictated By: David Jordan M.D. Signed By:07/30/23629 DD/ 7 TD/TT: Barge Hand: us Ankush [facility] Final Result documented in this encounter Visit Diagnoses Not on filedocumented in this encounter Care Teams Director Sales Training Relationship Specialty [place] [address] [place] [address] PCP - General Family Medicine 12/23/22 documented as of this encounter
--- OUTSIDE RECORDS SUMMARY | 2024-12-08 19:59 | XMS_ITS | Clinical Summary ---
Author Organization [facility] Address [address] [place] [address] Care Team Providers Care Trail Maintenance Worker Name Role Phone ArmandoPrema chen Primary Care Provider [phone] Allergies Active Allergy Reactions Criticality Noted Date Comments Penicillins 09/25/2021 Medications norgestimate-eth inyl estradiol (Mills-Linyah) 0.25-35 MG-MCG tablet Take 1 tablet by mouth daily. Active Active Problems No known active problems Family History Medical History Relation Name Comments Heart Disease - Other Maternal Grandfather Heart Disease - Other Paternal Grandfather Relation Name Status Comments Maternal Grandfather Paternal Grandfather Social History Tobacco Use Types Packs/Day Years Used Date Smoking Tobacco: Every Day Cigarettes Smokeless Tobacco: Never Alcohol Use Standard Drinks/Week Comments Yes 0 (1 standard drink = 0.6 oz pur e alcohol) Occasionally Comments Unknown Sex and Gender Information Value Date Recorded Sex Assigned at Not on file Legal Sex Female 11:00 AM EDT Gender Identity Not on file Sexual Orientation Not on file Last Filed Vital Signs Vital Sign Reading Time Taken Comments Blood Pressure 131/70 09/25/2021 12:49 PM EDT Pulse 80 09/25/2021 12:49 PM EDT Temperature 36.9 C (98.5 F) 09/25/2021 12:49 PM EDT Respiratory Rate - - Oxygen Saturation - - Inhaled Oxygen Concentration - - Weight 75.8 kg (167 lb) 09/25/2021 12:49 PM EDT Height 160 cm (5' 3 ) 09/25/2021 12:49 PM EDT Body Mass Index 29.58 09/25/2021 12:49 PM EDT Plan of Treatment Health Maintenance Due Date Last Done Comments HEPATITIS C VIRUS SCREENING 1990 TETANUS 1990 HEP B VACCINE (3 of 3 - 3-dose series) 06/29/1998 04/20/1998, 03/09/1998 HIV SCREENING DISCUSSION 01/23/2004 TDAP (ADULT) 01/23/2008 CERVICAL CANCER SCREENING DISCUSSION 2010 COVID-19 VACCINE ( - 2023-2 5 season) 2024 INFLUENZA VACCINE (Season Ended) 2025 HPV VACCINE Completed 08/24/2013, 04/20/2013, 02/04/2013 PNEUMOCOCCAL VACCINE SERIES Aged Out No longer eligible based on patient's age to complete this topic Insurance [employer] [facility] Care Teams Trail Maintenance Worker Relationship Specialty Start Date End Date Prema Guillen DO PCP - General Family Medicine 09/25/21
--- OUTSIDE RECORDS SUMMARY | 2024-12-08 19:59 | XMS_ITS | Encounter Summary ---
Author Organization [facility] Address [address] [place] [address] Care Team Providers Care Char Conveyor Tender Cellar Name Role Phone Prema Guillen DO Primary Care Provider [phone] Encounter Details Date Type Department Care Team (Late Contact Info) Description 07/23/2023 Clinisync Result Encounter [facility] External Department Unsolicited Ankush Kelly PA [address] [facility] [address] [place], [facility]11 Social History Tobacco Use Types Packs/Day [...] EDT Office Visit [facility] [address] [facility] [place] [phone] Kali Valle DO [address] [place] [address] Dr [address] [place], [place] [address] documented as of this encounter Procedures Procedure Name Priority Date/Time Associated Diagnosis Comments US OB BPP W NON-STRESS 07/23/2023 6:22 AM EST documented in this encounter Results * US OB BPP W NON-STRESS (07/23/2023 6:22 AM EST) Anatomical Region Laterality Modality Other 07/23/2023 6:22 AM EST Narrative 07/23/2023 6:25 AM EST [address] [address] Ultrasound Report Signed Patient: SANGITA KENNY MR#: [id number] : 1990 Acct:[id number] Age/Sex: 33 / F ADM Date: 07/22/23 Loc: US Attending Dr: Ankush Kelly Ordering Physician: Ankush Kelly Date of Service: 07/22/23 Procedure(s): US OB BPP w non-stress Accession Number(s): [id number] cc: Ankush Kelly; Prema Guillen [address] [address] Patient Name: SANGITA KENNY MRN: [id number] date: 1990 Sex: F Assigned Patient Location: [facility] Current Patient Location: Accession/Order Number: [id number] Exam Date: 07/22/2023 17:15 Report Date: 07/23/2023 06:22 At the request of: ANKUSH KELLY Procedure: US OB BPP w non-stress EXAMINATION: US OB BPP w non-stress HISTORY: EXCESSIVE GROWTH AFFECTING O36.63X0 COMPARISON: Ultrasound OB biophysical 07/15/2023 TECHNIQUE: Ultrasound biophysical profile was performed in the radiology department. BREATHING MOVEMENTS: 2.0 GROSS BODY MOVEMENTS: 2.0 TONE: 2.0 QUALITATIVE AMNIOTIC FLUID VOLUME: 2.0 PRESENTATION: CEPHALIC HEART RATE: 130.4 bpm bpm. AMNIOTIC FLUID VOLUME: 17.3 cm GESTATIONAL AGE: 34 weeks 4 days CONCLUSION: Total biophysical profile score 8.0. Electronically authenticated by: DAVID JORDAN Date: 07/23/2023 06:22 Dictated By: David Jordan M.D. Signed By: 07/23/23624 DD/ 1 TD/TT: Ward Aide: Procedure Note Radiology, Radiologist, - 09/03/[address] [address] Ultrasound Report Signed Patient: SANGITA KENNY MMR#: [id number] : 1990Acct:[id number] Age/Sex: 33 / FADM Date: 07/22/23 Loc: US Attending Dr: Ankush Kelly Ordering Physician: Ankush Kelly Date of Service: 07/22/23 Procedure(s): US OB BPP w non-stress Accession Number(s): [id number] cc: Ankush Kelly; Prema Guillen [place] [id number] Patient Name: SANGITA KENNY MRN: [facility]:[id number] date: 1990 Sex: F Assigned Patient Location: [facility] Current Patient Location: Accession/Order Number: [id number] Exam Date: 07/22/2023 17:15 Report Date: 07/23/2023 06:22 At the request of: ANKUSH KELLY Procedure: US OB BPP w non-stress EXAMINATION: US OB BPP w non-stress HISTORY: EXCESSIVE GROWTH AFFECTING O36.63X0 COMPARISON: Ultrasound OB biophysical 07/15/2023 TECHNIQUE: Ultrasound biophysical profile was performed in the radiology department. BREATHING MOVEMENTS: 2.0 GROSS BODY MOVEMENTS: 2.0 TONE: 2.0 QUALITATIVE AMNIOTIC FLUID VOLUME: 2.0 PRESENTATION: CEPHALIC HEART RATE: 130.4 bpm bpm. AMNIOTIC FLUID VOLUME: 17.3 cm GESTATIONAL AGE: 34 weeks 4 days CONCLUSION: Total biophysical profile score 8.0. Electronically authenticated by: DAVID JORDAN Date: 07/23/2023 06:22 Dictated By: David Jordan M.D. Signed By:07/23/23624 DD/ 1 TD/TT: Ward Aide: us Ankush [facility] Final Result documented in this encounter Visit Diagnoses Not on filedocumented in this encounter Care Teams Char Conveyor Tender Cellar Relationship Specialty [place] [address] [place] [address] PCP - General Family Medicine 12/23/22 documented as of this encounter
--- OUTSIDE RECORDS SUMMARY | 2024-12-08 19:59 | XMS_ITS | Encounter Summary ---
Author Organization [facility] Address [address] [place] [address] Care Team Providers Care Film Vault Supervisor Name Role Phone Prema Guillen DO Primary Care Provider [phone] Encounter Details Date Type Department Care Team (Late Contact Info) Description 07/16/2023 Clinisync Result Encounter [facility] External Department Unsolicited Ankush Kelly PA [address] [facility] [address] [place], [facility] Social History Tobacco Use Types Packs/Day Years [...] EDT Office Visit [facility] [address] [facility] [place] [phone] Kali Valle DO [address] [place] [address] Dr Enzo [place], [place] [address] documented as of this encounter Procedures Procedure Name Priority Date/Time Associated Diagnosis Comments US OB BPP W NON-STRESS 07/16/2023 7:08 AM EST documented in this encounter Results * US OB BPP W NON-STRESS (07/16/2023 7:08 AM EST) Anatomical Region Laterality Modality Other 07/16/2023 7:08 AM EST Narrative 07/16/2023 7:11 AM EST [address] [address] Ultrasound Report Signed Patient: SANGITA KENNY MR#: [id number] : 1990 Acct:[id number] Age/Sex: 33 / F ADM Date: 07/15/23 Loc: US Attending Dr: Ankush Kelly Ordering Physician: Ankush Kelly Date of Service: 07/15/23 Procedure(s): US OB BPP w non-stress Accession Number(s): [id number] cc: Ankush Kelly; Prema Guillen [place] [id number] Patient Name: SANGITA KENNY MRN: [id number] date: 1990 Sex: F Assigned Patient Location: US Current Patient Location: Accession/Order Number: [id number] Exam Date: 07/15/2023 17:10 Report Date: 07/16/2023 07:08 At the request of: ANKUSH KELLY Procedure: US OB BPP w non-stress EXAMINATION: US OB BPP w non-stress HISTORY: EXCESSIVE GROWTH AFFECTING O36.63X0 COMPARISON: No relevant comparison available. TECHNIQUE: Ultrasound biophysical profile was performed in the radiology department. non-reactive stress testing was performed by nursing staff in the birthing center. FINDINGS: BREATHING MOVEMENTS: 2.0 GROSS BODY MOVEMENTS: 2.0 TONE: 2.0 QUALITATIVE AMNIOTIC FLUID VOLUME: 2.0 PRESENTATION: CEPHALIC HEART RATE: 150.8 bpm H.B./min AMNIOTIC FLUID VOLUME: 18.6 cm cm GESTATIONAL AGE: 33 weeks 4 days CONCLUSION: Total biophysical profile score: 8.0 Electronically authenticated by: ABHISHEK PECK Date: 07/16/2023 07:08 Dictated By: Abhishek Peck M.D. Signed By: 07/16/2311 DD/ TD/TT: Scrap Carrier: Procedure Note Radiology, Radiologist, - 07/16/[address] [address] Ultrasound Report Signed Patient: SANGITA KENNY MMR#: [id number] : 1990Acct:[id number] Age/Sex: 33 / FADM Date: 07/15/23 Loc: US Attending Dr: Ankush Kelly Ordering Physician: Ankush Kelly Date of Service: 07/15/23 Procedure(s): US OB BPP w non-stress Accession Number(s): [id number] cc: Ankush Kelly; Prema Guillen [address] [address] Patient Name: SANGITA KENNY MRN: [id number] date: 1990 Sex: F Assigned Patient Location: US Current Patient Location: Accession/Order Number: [id number] Exam Date: 07/15/2023 17:10 Report Date: 07/16/2023 07:08 At the request of: ANKUSH KELLY Procedure: US OB BPP w non-stress EXAMINATION: US OB BPP w non-stress HISTORY: EXCESSIVE GROWTH AFFECTING O36.63X0 COMPARISON: No relevant comparison available. TECHNIQUE: Ultrasound biophysical profile was performed in the radiology department. non-reactive stress testing was performed by nursingstaff in the birthing center. FINDINGS: BREATHING MOVEMENTS: 2.0 GROSS BODY MOVEMENTS: 2.0 TONE: 2.0 QUALITATIVE AMNIOTIC FLUID VOLUME: 2.0 PRESENTATION: CEPHALIC HEART RATE: 150.8 bpm H.B./min AMNIOTIC FLUID VOLUME: 18.6 cm cm GESTATIONAL AGE: 33 weeks 4 days CONCLUSION: Total biophysical profile score: 8.0 Electronically authenticated by: ABHISHEK PECK Date: 07/16/2023 07:08 Dictated By: Abhishek Peck M.D. Signed By:07/16/23710 DD/ 7 TD/TT: Scrap Carrier: us Ankush [facility] Final Result documented in this encounter Visit Diagnoses Not on filedocumented in this encounter Care Teams Film Vault Supervisor Relationship Specialty Start Date End Date Prema Guillen DO [address] [place] [address] PCP - General Family Medicine 12/23/22 documented as of this encounter
--- OUTSIDE RECORDS SUMMARY | 2024-12-08 19:59 | XMS_ITS | Encounter Summary ---
Author Organization [facility] Address [address] [facility] [place] [address] Care Team Providers Care Tube Operator Name Role Phone Prema Guillen DO Primary Care Provider [phone] Encounter Details Date Type Department Care Team ([facility] Contact Info) Description 04/15/2023 Abstract [facility] [place] [address] [place] [address] [place] [address] [place] [id number] Social History Tobacco Use Types Packs/Day Years [...] Upcoming Encounters Date Type Department Care Team ([facility] Contact Info) Description 12/14/2025 3:00 PM EDT Office Visit [facility] OB [address] [place] [address] Kali Valle [facility] [place] [address] documented as of this encounter Visit Diagnoses Not on filedocumented in this encounter Care Teams Tube Operator Relationship Specialty Start Date End Date Prema Guillen DO [address] [place] [address] PCP - General Family Medicine 12/23/22 documented as of this encounter
--- OUTSIDE RECORDS SUMMARY | 2024-12-08 19:59 | XMS_ITS | Encounter Summary ---
Author Organization [id number] [address] [place] [address] Care Team Providers Care Dairy Powder Mixer Operator Name Role Phone Prema Guillen DO Primary Care Provider [phone] Encounter Details Date Type Department Care Team (Late st Contact Info) Description 03/06/2022 Orders Only [facility] [address] [facility] [address] [place] [address] Sixto Petersen MD [address] [place] [address] , [place] [address] Social History Tobacco Use Types Packs/Day Years Used Date Smoking Tobacco: Every Day Cigarettes 0.5 10 Smokeless Tobacco: Never Alcohol Use Standard Drinks/Week Comments Yes 0 (1 standard drink = 0.6 oz pur e alcohol) rare PHQ-2 Answer Date Recorded Total Score 22 03/06/2022 Childcare Answer Date Recorded Childcare Unknown 12/09/2018 Employment Answer Date Recorded Employment Unknown 12/09/2018 Purpose - Life Answer Date Recorded Purpose and direction in life Unknown Comments No Sex and Gender Information Value Date Recorded Sex Assigned at Not on file Legal Sex Female 11:40 AM EDT Gender Identity Not on file Sexual Orientation Not on file COVID-19 Exposure Response Date Recorded In the last month, have you been in contact with someone who was confirmed or suspected to have Coronavirus / COVID-19? No / Unsure 03/06/2022 9:15 AM EDT documented as of this encounter Plan of Treatment Not on file documented as of this encounter Procedures Procedure Name Priority Date/Time Associated Diagnosis Comments SURGICAL PATHOLOGY Routine 05/23/2021 HM MAMMOGRAPHY Routine 01/01/2021 documented in this encounter Results * Surgical Pathology (05/23/2021) Michael Henderson MD PATHOLOGY/CYTOLOGY ORDERABLES Final Result MANUALLY TRANSCRIBED RESULTS * HM MAMMOGRAPHY (01/01/2021) Anatomical Region Laterality Modality Other us Scanning Provider External HEALTH MAINTENANCE Fi nal Result documented in this encounter Visit Diagnoses Not on filedocumented in this encounter Additional Health Concerns Assessment Noted Time PHQ-9 Depression Total Score: 22 022 9:30 AM EDT documented as of this encounter Care Teams Dairy Powder Mixer Operator Relationship Specialty Start Date End Date Prema Guillen DO [address] [place] [address] PCP - General Family Medicine 01/29/22 documented as of this encounter
--- OUTSIDE RECORDS SUMMARY | 2024-12-08 19:59 | XMS_ITS | Encounter Summary ---
Author Organization [facility] Address [address] [place] [address] Care Team Providers Care Segmental Paver Installer Name Role Phone Prema Guillen DO Primary Care Provider [phone] Encounter Details Date Type Department Care Team (Late Contact Info) Description 05/14/2023 Clinisync Result Encounter [facility] External Department Unsolicited Eri Valle, DO [address] [place], [place] [address] [address] Social History Tobacco Use Types Packs/Day Years [...] 12/14/2025 3:00 PM EDT Office Visit [facility] [address] [place] [address] Eri Valle, DO [address] [place], [place] [address] [address] documented as of this encounter Procedures Procedure Name Priority Date/Time Associated Diagnosis Comments US OB INCOMPLETE ANATOMY 05/14/2023 10:11 PM EST documented in this encounter Results * US OB INCOMPLETE ANATOMY (05/14/2023 10:11 PM EST) Anatomical Region Laterality Modality Other 05/14/2023 10:1 1 PM EST Narrative 05/14/2023 10:11 PM EST [address] [address] Ultrasound Report Signed Patient: SANGITA KENNY MR#: [id number] : 1990 Acct:[id number] Age/Sex: 33 / F ADM Date: 05/13/23 Loc: US Attending Dr: Eri Valle D.O. Ordering Physician: Eri Valle D.O. Date of Service: 05/13/23 Procedure(s): US OB incomplete anatomy Accession Number(s): [id number] cc: Eri Valle D.O.; Prema Guillen [address] [address] Patient Name: SANGITA KENNY MRN: [id number] date: 1990 Sex: F Assigned Patient Location: US Current Patient Location: Accession/Order Number: [id number] Exam Date: 05/13/2023 17:38 Report Date: 05/14/2023 22:11 At the request of: ERI VALLE Procedure: US OB incomplete anatomy EXAM: US OB incomplete anatomy HISTORY: follow up anatomy Z36.2 COMPARISON: Ultrasound OB anatomy 04/15/2023 TECHNIQUE: Transabdominal ultrasound FINDINGS: Presentation: Cephalic Heart rate: 156 bpm Anatomy: Cervical, thoracic, lumbar, and sacral spine demonstrated without appreciable abnormality. GA: 24 weeks 4 days GARCÍA: 08/29/2023 without appreciable anatomy. US/US OB incomplete anatomy IMPRESSION: 1. Single live intrauterine . 2. Adequate visualization of the spine; no appreciable abnormality. Electronically authenticated by: DAVID JORDAN Date: 05/14/2023 22:11 Dictated By: David Jordan M.D. Signed By: 05/14/232213 DD/ 10 TD/TT: Docent Coordinator: Procedure Note Radiology, Radiologist, MD - 05/14/2023 [place] [address] Ultrasound Report Signed Patient: SANGITA KENNY MMR#: [id number] : 1990Acct:[id number] Age/Sex: 33 / FADM Date: 05/13/23 Loc: US Attending Dr: Eri Valle D.O. Ordering Physician: Eri Valle D.O. Date of Service: 05/13/23 Procedure(s): US OB incomplete anatomy Accession Number(s): [id number] cc: Eri Valle D.O.; Prema Guillen [place] [id number] Patient Name: SANGITA KENNY MRN: [facility]:[id number] date: 1990 Sex: F Assigned Patient Location: US Current Patient Location: Accession/Order Number: [id number] Exam Date: 05/13/2023 17:38 Report Date: 05/14/2023 22:11 At the request of: ERI VALLE Procedure: US OB incomplete anatomy EXAM: US OB incomplete anatomy HISTORY: follow up anatomy Z36.2 COMPARISON: Ultrasound OB anatomy 04/15/2023 TECHNIQUE: Transabdominal ultrasound FINDINGS: Presentation: Cephalic Heart rate: 156 bpm Anatomy: Cervical, thoracic, lumbar, and sacral spine demonstrated without appreciable abnormality. GA: 24 weeks 4 days GARCÍA: 08/29/2023 without appreciable anatomy. US/US OB incomplete anatomy IMPRESSION: 1. Single live intrauterine . 2. Adequate visualization of the spine; no appreciable abnormality. Electronically authenticated by: DAVID JORDAN Date: 05/14/2023 22:11 Dictated By: David Jordan M.D. Signed By:05/14/232213 DD/ 10 TD/TT: Docent Coordinator: us Eri Valle DO [facility] Final Result documented in this encounter Visit Diagnoses Not on filedocumented in this encounter Care Teams Segmental Paver Installer Relationship Specialty Start Date End Date Prema Guillen DO [address] [place] [address] PCP - General Family Medicine 12/23/22 documented as of this encounter
--- OUTSIDE RECORDS SUMMARY | 2024-12-08 19:59 | XMS_ITS | Encounter Summary ---
Author Organization [facility] Address [address] [place] [address] Care Team Providers Care Wearing Apparel Assembler Name Role Phone Prema Guillen DO Primary Care Provider [phone] Encounter Details Date Type Department Care Team (Late Contact Info) Description 08/06/2023 Clinisync Result Encounter [facility] External Department Unsolicited Eri Valle, DO [facility] [place] [address] Social History Tobacco Use Types Packs/Day Years [...] 12/14/2025 3:00 PM EDT Office Visit [facility] [address] [facility] [place] [phone] Eri Valle, DO [facility] [place] [address] documented as of this encounter Procedures Procedure Name Priority Date/Time Associated Diagnosis Comments US OB BPP W NON-STRESS 08/06/2023 8:00 AM EST documented in this encounter Results * US OB BPP W NON-STRESS (08/06/2023 8:00 AM EST) Anatomical Region Laterality Modality Other 08/06/2023 8:00 AM EST Narrative 08/06/2023 8:03 AM EST [address] [address] Ultrasound Report Signed Patient: SANGITA KENNY MR#: [id number] : 1990 Acct:[id number] Age/Sex: 33 / F ADM Date: 08/05/23 Loc: US Attending Dr: Eri Valle D.O. Ordering Physician: Eri Valle D.O. Date of Service: 08/05/23 Procedure(s): US OB BPP w non-stress Accession Number(s): [id number] cc: Eri Valle D.O.; Prema Guillen [address] [address] Patient Name: SANGITA KENNY MRN: [facility]:[id number] date: 1990 Sex: F Assigned Patient Location: [facility] Current Patient Location: Accession/Order Number: [id number] Exam Date: 08/05/2023 17:20 Report Date: 08/06/2023 08:00 At the request of: ERI VALLE Procedure: US OB BPP w non-stress EXAMINATION: US OB BPP w non-stress HISTORY: EXCESSIVE GROWTH AFFECTING O36.63X0 COMPARISON: No relevant comparison available. TECHNIQUE: Ultrasound biophysical profile was performed in the radiology department. non-reactive stress testing was performed by nursing staff in the birthing center. FINDINGS: BREATHING MOVEMENTS: 2.0 GROSS BODY MOVEMENTS: 2.0 TONE: 2.0 QUALITATIVE AMNIOTIC FLUID VOLUME: 2.0 PRESENTATION: CEPHALIC HEART RATE: 156.1 bpm H.B./min AMNIOTIC FLUID VOLUME: 16.0 cm cm GESTATIONAL AGE: 36 weeks 4 days CONCLUSION: Total biophysical profile score: 8.0 Electronically authenticated by: ABHISHEK PECK Date: 08/06/2023 08:00 Dictated By: Abhishek Peck M.D. Signed By: 08/06/23802 DD/ 08 TD/TT: Credit And Collections Representative: Procedure Note Radiology, Radiologist, - 09/03/2023 [place] [address] Ultrasound Report Signed Patient: SANGITA KENNY MMR#: [id number] : 1990Acct:[id number] Age/Sex: 33 / FADM Date: 08/05/23 Loc: US Attending Dr: Eri Valle D.O. Ordering Physician: Eri Valle D.O. Date of Service: 08/05/23 Procedure(s): US OB BPP w non-stress Accession Number(s): [id number] cc: Eri Valle D.O.; Prema Guillen [place] [address] Patient Name: SANGITA KENNY MRN: [id number] date: 1990 Sex: F Assigned Patient Location: [facility] Current Patient Location: Accession/Order Number: [id number] Exam Date: 08/05/2023 17:20 Report Date: 08/06/2023 08:00 At the request of: ERI VALLE Procedure: US OB BPP w non-stress EXAMINATION: US OB BPP w non-stress HISTORY: EXCESSIVE GROWTH AFFECTING O36.63X0 COMPARISON: No relevant comparison available. TECHNIQUE: Ultrasound biophysical profile was performed in the radiology department. non-reactive stress testing was performed by nursingstaff in the birthing center. FINDINGS: BREATHING MOVEMENTS: 2.0 GROSS BODY MOVEMENTS: 2.0 TONE: 2.0 QUALITATIVE AMNIOTIC FLUID VOLUME: 2.0 PRESENTATION: CEPHALIC HEART RATE: 156.1 bpm H.B./min AMNIOTIC FLUID VOLUME: 16.0 cm cm GESTATIONAL AGE: 36 weeks 4 days CONCLUSION: Total biophysical profile score: 8.0 Electronically authenticated by: ABHISHEK PECK Date: 08/06/2023 08:00 Dictated By: Abhishek Peck M.D. Signed By:08/06/23 08 DD/ 08 TD/TT: Credit And Collections Representative: us Eri Valle DO [facility] Final Result documented in this encounter Visit Diagnoses Not on filedocumented in this encounter Care Teams Wearing Apparel Assembler Relationship Specialty Start Date End Date Prema Guillen DO [address] [place] [address] PCP - General Family Medicine 12/23/22 documented as of this encounter
--- OUTSIDE RECORDS SUMMARY | 2024-12-08 19:59 | XMS_ITS | Encounter Summary ---
Author Organization [facility] Address [address] [facility] [facility] [place] [address] Care Team Providers Care Diagram Clerk Name Role Phone Prema Guillen DO Primary Care Provider [phone] Encounter Details Date Type Department Care Team ([facility] [address] Contact Info) Description 03/30/2023 Abstract [facility] [address] [place] [address] Monique James PA [address] [place] [address] Dr [place], [facility] Social History Tobacco Use Types Packs/Day [...] Upcoming Encounters Date Type Department Care Team ([facility] [address] Contact Info) Description 12/14/2025 3:00 PM EDT Office Visit [facility] [address] [place] [address] Kali Valle [address] Enzo Tam, [facility] documented as of this encounter Visit Diagnoses Not on filedocumented in this encounter Care Teams Diagram Clerk Relationship Specialty Start Date End Date Prema Guillen DO [address] [place] [address] PCP - General Family Medicine 12/23/22 documented as of this encounter
--- OUTSIDE RECORDS SUMMARY | 2024-12-08 19:59 | XMS_ITS | Encounter Summary ---
Author Organization theAudience s tem Address [id number] [address] [place] [address] Care Team Providers Care Office Lead Name Role Phone Prema Guillen DO Primary Care Provider [phone] Encounter Details Date Type Department Care Team (Late st Contact Info) Description 02/01/2022 Telephone [facility] [address] [facility] [address] [place] [address] Jose David Cooley CMA Social History Tobacco Use Types Packs/Day Years Used Date Smoking Tobacco: Every Day Cigarettes 0.5 10 Smokeless Tobacco: Never Alcohol Use Standard Drinks/Week Comments Yes 0 (1 standard drink = 0.6 oz pur e alcohol) rare Childcare Answer Date Recorded Childcare Unknown 12/09/2018 [...] have Coronavirus / COVID-19? No / Unsure 01/29/2022 4:30 PM EDT documented as of this encounter Plan of Treatment Not on file documented as of this encounter Visit Diagnoses Not on filedocumented in this encounter Care Teams Office Lead Relationship Specialty Start Date End Date Prema Guillen DO [address] [place] [address] PCP - General Family Medicine 01/29/22 documented as of this encounter
--- OUTSIDE RECORDS SUMMARY | 2024-12-08 19:59 | XMS_ITS | Encounter Summary ---
Author Organization [facility] Address [address] [facility] [place] [address] Care Team Providers Care Senior Managing Director Name Role Phone Prema Guillen DO Primary Care Provider [phone] Encounter Details Date Type Department Care Team (Late Contact Info) Description 04/16/2023 Clinisync Result Encounter [facility] External Department Unsolicited Monique Kelly PA [address] [facility] [address] [place], [place] [address] Social History Tobacco Use Types Packs/Day Years [...] Upcoming Encounters Date Type Department Care Team ([facility] Contact Info) Description 12/14/2025 3:00 PM EDT Office Visit [facility] OB [address] [facility] [place] [phone] Kali Valle DO [address] [place] [address] Dr Enzo Tam, [place] [address] documented as of this encounter Procedures Procedure Name Priority Date/Time Associated Diagnosis Comments US OB ANATOMY 04/16/2023 7:37 AM EDT documented in this encounter Results * US OB ANATOMY (04/16/2023 7:37 AM EDT) Anatomical Region Laterality Modality Other 04/16/2023 7:37 AM EDT Narrative 04/16/2023 7:37 AM EDT [address] [address] Ultrasound Report Signed Patient: MAGI KENNY MR#: [id number] : 1990 Acct:[id number] Age/Sex: 33 / F ADM Date: 04/15/23 Loc: US Attending Dr: Monique Kelly Ordering Physician: Monique Kelly Date of Service: 04/15/23 Procedure(s): US OB anatomy Accession Number(s): [id number] cc: Monique Kelly; Prema Guillen [address] [address] Patient Name: MAGI KENNY MRN: [id number]:[id number] date: 1990 Sex: F Assigned Patient Location: US Current Patient Location: Accession/Order Number: [id number] Exam Date: 04/15/2023 19:06 Report Date: 04/16/2023 07:37 At the request of: MONIQUE KELLY Procedure: US OB anatomy EXAMINATION: US OB anatomy, US OB transvaginal HISTORY: SECOND TRIMESTER Z34.92 COMPARISON: No relevant comparison available. TECHNIQUE: Transabdominal sonographic examination was performed for obstetrical and evaluation. FINDINGS: Number: 1 Heart Rate: not measured Amniotic Fluid Volume: Subjectively normal Placental Location: ANTERIOR, grade 0. Placental edge 3.4 cm from the cervical os Cervix Length: 4.7 cm , closed Normal anatomy: Lateral ventricles, cerebellum, posterior fossa, nose, lips, orbits, four-chamber heart, RVOT, LVOT, diaphragm, stomach, kidneys, abdominal cord insertion, bladder, umbilical arteries, three-vessel cord, extremities Suboptimal visualization: Spine BIOMETRY: BPD: 4.7 cm 20 weeks 2 days , 29% HC: 18.5 cm 20 weeks 6 days, 46% AC: 15.6 cm 20 weeks 5 days, 44% FL: 3.2 cm 19 weeks 6 days, 17% EFW:351.5 grams; 12 ounces, 29% FL/AC: 20.5 FL/BPD: 67.8 HC/AC: 1.2 GESTATIONAL AGE: Age by EDC: 20 weeks 5 days Age by current US: 20 weeks 3 days GARCÍA by current US: 08/30/2023 GARCÍA by EDC: 08/28/2023 US/US OB anatomy IMPRESSION: Suboptimal visualization of the spine Low lying placenta *Reference: [employer] Practice Guideline for the performance of Obstetric Ultrasound Examinations, March 30, 2007. Electronically authenticated by: ABHISHEK PECK Date: 04/16/2023 07:37 Dictated By: Abhishek Peck M.D. Signed By: 04/16/2344 DD/ TD/TT: Plasticator: Procedure Note Radiology, Radiologist, MD - 04/16/2023 [place] [address] Ultrasound Report Signed Patient: MAGI KENNY MMR#: [id number] : 1990Acct:[id number] Age/Sex: 33 / FADM Date: 04/15/23 Loc: US Attending Dr: Monique Kelly Ordering Physician: Monique Kelly Date of Service: 04/15/23 Procedure(s): US OB anatomy Accession Number(s): [id number] cc: Monique Kelly; Prema Guillen [address] [address] Patient Name: MAGI KENNY MRN: [id number] date: 1990 Sex: F Assigned Patient Location: US Current Patient Location: Accession/Order Number: [id number] Exam Date: 04/15/2023 19:06 Report Date: 04/16/2023 07:37 At the request of: MONIQUE KELLY Procedure: US OB anatomy EXAMINATION: US OB anatomy, US OB transvaginal HISTORY: SECOND TRIMESTER Z34.92 COMPARISON: No relevant comparison available. TECHNIQUE: Transabdominal sonographic examination was performed for obstetrical and evaluation. FINDINGS: Number: 1 Heart Rate: not measured Amniotic Fluid Volume: Subjectively normal Placental Location: ANTERIOR, grade 0. Placental edge 3.4 cm from thecervical os Cervix Length: 4.7 cm , closed Normal anatomy: Lateral ventricles, cerebellum, posterior fossa, nose,lips, orbits, four-chamber heart, RVOT, LVOT, diaphragm, stomach, kidneys,abdominal cord insertion, bladder, umbilical arteries, three-vessel cord,extremities Suboptimal visualization: Spine BIOMETRY: BPD: 4.7 cm 20 weeks 2 days , 29% HC: 18.5 cm 20 weeks 6 days, 46% AC: 15.6 cm 20 weeks 5 days, 44% FL: 3.2 cm 19 weeks 6 days, 17% EFW:351.5 grams; 12 ounces, 29% FL/AC: 20.5 FL/BPD: 67.8 HC/AC: 1.2 GESTATIONAL AGE: Age by EDC: 20 weeks 5 days Age by current US: 20 weeks 3 days GARCÍA by current US: 08/30/2023 GARCÍA by EDC: 08/28/2023 US/US OB anatomy IMPRESSION: Suboptimal visualization of the spine Low lying placenta *Reference: [employer] Practice Guideline for the performance of Obstetric Ultrasound Examinations, March 30, 2007. Electronically authenticated by: ABHISHEK PECK Date: 04/16/2023 07:37 Dictated By: Abhishek Peck M.D. Signed By:04/16/23 0744 DD/ TD/TT: Plasticator: us Monique FAUSTIN [facility] Final Result documented in this encounter Visit Diagnoses Not on filedocumented in this encounter Care Teams Senior Managing Director Relationship Specialty Start Date End Date Prema Guillen DO [address] [place] [address] PCP - General Family Medicine 12/23/22 documented as of this encounter
--- OUTSIDE RECORDS SUMMARY | 2024-12-08 19:59 | XMS_ITS | Encounter Summary ---
Author Organization [facility] Address [address] [place] [address] Care Team Providers Care Flyer Repairer Name Role Phone Prema Guillen DO Primary Care Provider [phone] Encounter Details Date Type Department Care Team (Late Contact Info) Description 08/26/2023 Clinisync Result Encounter NOMS External Department Unsolicited Eri Valle, DO [facility] [place], [place] [phone] Social History Tobacco Use Types Packs/Day Years [...] 12/14/2025 3:00 PM EDT Office Visit [facility] [address] [facility] [phone] Eri Valle, DO [facility] [place] [address] documented as of this encounter Procedures Procedure Name Priority Date/Time Associated Diagnosis Comments US OB BPP W NON-STRESS 08/26/2023 5:40 PM EST documented in this encounter Results * US OB BPP W NON-STRESS (08/26/2023 5:40 PM EST) Anatomical Region Laterality Modality Other 08/26/2023 5:40 PM EST Narrative 08/26/2023 5:43 PM EST [address] [address] Ultrasound Report Signed Patient: SANGITA KENNY MR#: [id number] : 1990 Acct:[id number] Age/Sex: 33 / F ADM Date: Loc: [facility] 250-[address]: Eri Valle D.O. Ordering Physician: Eri Valle D.O. Date of Service: 08/26/23 Procedure(s): US OB BPP w non-stress Accession Number(s): [id number] cc: Eri Valle D.O.; Prema Guillen [address] [address] Patient Name: SANGITA KENNY MRN: [facility]:[id number] date: 1990 Sex: F Assigned Patient Location: [facility] Current Patient Location: [facility] Accession/Order Number: [id number] Exam Date: 08/26/2023 17:08 Report Date: 08/26/2023 17:40 At the request of: ERI VALLE Procedure: US OB BPP w non-stress PROCEDURE: US OB BPP w non-stress, 08/26/2023 5:08 PM EST CLINICAL INDICATIONS: Encounter for third trimester , excessive growth, biophysical profile assessment. Expected gestational age: 39 weeks 4 days Expected GARCÍA: 08/29/2023 COMPARISON: None TECHNIQUE: Limited third trimester obstetric sonogram, biophysical profile assessment. FINDINGS: Single living intrauterine identified. Cephalic presentation. body, cardiac activity noted, heart rate 153 bpm. Amniotic fluid index 13.7 cm, maximum vertical pocket 4.9 cm. biometry: Not performed. anatomic assessment: Not performed. BIOPHYSICAL PROFILE ASSESSMENT: movement: 2/2 tone: 2/2 breathin/2 fluid: 2/2 Total biophysical profile score: 8/8 Maternal adnexa are not evaluated. US/US OB BPP w non-stress IMPRESSION: 1. Single living intrauterine , cephalic presentation 2. 13.7 cm amniotic fluid index, maximum vertical pocket 4.9 cm. 3. Normal biophysical profile assessment, total score 8/8 Electronically authenticated by: SERGIO TREVINO Date: 08/26/2023 17:40 Dictated By: Sergio Trevino M.D. Signed By: 08/26/231742 DD/ 39 TD/TT: Patch Press Operator: Procedure Note Radiology, Radiologist, MD - 09/03/2023 [place] [address] Ultrasound Report Signed Patient: SANGITA KENNY MMR#: [id number] : 1990Acct:[id number] Age/Sex: 33 / FADM Date: Loc: [facility] 250-[address]: Eri Valle D.O. Ordering Physician: Eri Valle D.O. Date of Service: 08/26/23 Procedure(s): US OB BPP w non-stress Accession Number(s): [id number] cc: Eri Valle D.O.; Prema Guillen [place] [id number] Patient Name: SANGITA KENNY MRN: [id number] date: 1990 Sex: F Assigned Patient Location: [facility] Current Patient Location: [facility] Accession/Order Number: [id number] Exam Date: 08/26/2023 17:08 Report Date: 08/26/2023 17:40 At the request of: ERI VALLE Procedure: US OB BPP w non-stress PROCEDURE: US OB BPP w non-stress, 08/26/2023 5:08 PM EST CLINICAL INDICATIONS: Encounter for third trimester , excessivefetal growth, biophysical profile assessment. Expected gestational age: 39 weeks 4 days Expected GARCÍA: 08/29/2023 COMPARISON: None TECHNIQUE: Limited third trimester obstetric sonogram, biophysical profile assessment. FINDINGS: Single living intrauterine identified. Cephalic presentation. body, cardiac activity noted, heart rate 153 bpm. Amniotic fluid index 13.7 cm, maximum vertical pocket 4.9 cm. biometry: Not performed. anatomic assessment: Not performed. BIOPHYSICAL PROFILE ASSESSMENT: movement: 2/2 tone: 2/2 breathin/2 fluid: 2/2 Total biophysical profile score: 8/8 Maternal adnexa are not evaluated. US/US OB BPP w non-stress IMPRESSION: 1. Single living intrauterine , cephalic presentation 2. 13.7 cm amniotic fluid index, maximum vertical pocket 4.9 cm. 3. Normal biophysical profile assessment, total score 8/8 Electronically authenticated by: SERGIO TREVINO Date: 08/26/2023 17:40 Dictated By: Sergio Trevino M.D. Signed By:08/26/231742 DD/ 39 TD/TT: Patch Press Operator: us Eri Tori DO [facility] Final Result documented in this encounter Visit Diagnoses Not on filedocumented in this encounter Care Teams Flyer Repairer Relationship Specialty Start Date End Date Prema Guillen DO [address] [place] [address] PCP - General Family Medicine 12/23/22 documented as of this encounter
--- OUTSIDE RECORDS SUMMARY | 2024-12-08 19:59 | XMS_ITS | Encounter Summary ---
Author Organization [facility] Address [address] [place] [address] Care Team Providers Care Skinning Machine Feeder Name Role Phone Prema Guillen DO Primary Care Provider [phone] Encounter Details Date Type Department Care Team (Late st Contact Info) Description 08/13/2023 Clinisync Result Encounter [facility] External Department Unsolicited Eri Valle, DO [facility] [place] [address] Social History Tobacco Use Types Packs/Day Years [...] 12/14/2025 3:00 PM EDT Office Visit [facility] [address] [facility] [place] [phone] Eri Valle, DO [facility] [place] [address] documented as of this encounter Procedures Procedure Name Priority Date/Time Associated Diagnosis Comments US OB BPP W NON-STRESS 08/13/2023 7:17 AM EST documented in this encounter Results * US OB BPP W NON-STRESS (08/13/2023 7:17 AM EST) Anatomical Region Laterality Modality Other 08/13/2023 7:17 AM EST Narrative 08/13/2023 7:20 AM EST [address] [address] Ultrasound Report Signed Patient: SANGITA KENNY MR#: [id number] : 1990 Acct:[id number] Age/Sex: 33 / F ADM Date: 08/12/23 Loc: US Attending Dr: Eri Valle D.O. Ordering Physician: Eri Valle D.O. Date of Service: 08/12/23 Procedure(s): US OB BPP w non-stress Accession Number(s): [id number] cc: Eri Valle D.O.; Prema Guillen [address] [address] Patient Name: SANGITA KENNY MRN: [facility]:[id number] date: 1990 Sex: F Assigned Patient Location: [facility] Current Patient Location: Accession/Order Number: [id number] Exam Date: 08/12/2023 17:40 Report Date: 08/13/2023 07:17 At the request of: ERI VALLE Procedure: US OB BPP w non-stress EXAMINATION: US OB BPP w non-stress HISTORY: EXCESSIVE GROWTH AFFECTING O26.63X0 COMPARISON: Ultrasound OB biophysical to 624 TECHNIQUE: Ultrasound biophysical profile was performed in the radiology department. BREATHING MOVEMENTS: 2.0 GROSS BODY MOVEMENTS: 2.0 TONE: 2.0 QUALITATIVE AMNIOTIC FLUID VOLUME: 2.0 PRESENTATION: CEPHALIC HEART RATE: 177.6 bpm bpm. AMNIOTIC FLUID VOLUME: 14.2 cm GESTATIONAL AGE: 37 weeks 4 days CONCLUSION: Total biophysical profile score 8.0. Electronically authenticated by: ROJELIO JORDAN Date: 08/13/2023 07:17 Dictated By: Rojelio Jordan M.D. Signed By: 08/13/23719 DD/ 6 TD/TT: Director Of Rotc: Procedure Note Radiology, Radiologist, - 09/03/2023 [place] [address] Ultrasound Report Signed Patient: SANGITA KENNY MMR#: [id number] : 1990Acct:[id number] Age/Sex: 33 / FADM Date: 08/12/23 Loc: US Attending Dr: Eri Valle D.O. Ordering Physician: Eri Valle D.O. Date of Service: 08/12/23 Procedure(s): US OB BPP w non-stress Accession Number(s): [id number] cc: Eri Valle D.O.; Prema Guillen [place] [id number] Patient Name: SANGITA KENNY MRN: [id number] date: 1990 Sex: F Assigned Patient Location: [facility] Current Patient Location: Accession/Order Number: [id number] Exam Date: 08/12/2023 17:40 Report Date: 08/13/2023 07:17 At the request of: ERI VALLE Procedure: US OB BPP w non-stress EXAMINATION: US OB BPP w non-stress HISTORY: EXCESSIVE GROWTH AFFECTING O26.63X0 COMPARISON: Ultrasound OB biophysical to 624 TECHNIQUE: Ultrasound biophysical profile was performed in the radiology department. BREATHING MOVEMENTS: 2.0 GROSS BODY MOVEMENTS: 2.0 TONE: 2.0 QUALITATIVE AMNIOTIC FLUID VOLUME: 2.0 PRESENTATION: CEPHALIC HEART RATE: 177.6 bpm bpm. AMNIOTIC FLUID VOLUME: 14.2 cm GESTATIONAL AGE: 37 weeks 4 days CONCLUSION: Total biophysical profile score 8.0. Electronically authenticated by: ROJELIO JORDAN Date: 08/13/2023 07:17 Dictated By: Rojelio Jordan M.D. Signed By:08/13/23719 DD/ 6 TD/TT: Director Of Rotc: us Eri Valle DO [facility] Final Result documented in this encounter Visit Diagnoses Not on filedocumented in this encounter Care Teams Skinning Machine Feeder Relationship Specialty Start Date End Date Prema Guillen DO [address] [place] [address] PCP - General Family Medicine 12/23/22 documented as of this encounter
--- OUTSIDE RECORDS SUMMARY | 2024-12-08 19:59 | XMS_ITS | Clinical Summary ---
Author Organization [employer] [facility] tem Address [id number] [address] [place] [address] Care Team Providers Care Horizontal Boring Mill Operator Name Role Phone RobsondarenElizabethty Sharmila GREGORY Primary Care Provider [phone] Allergies Active Allergy Reactions Criticality Noted Date Comments Penicillins Rash Low 04/24/2017 Medications No known medications Active Problems Problem Noted Date Diagnosed Date Breast infection 04/08/2022 Family History Medical History Relation Name Comments Stroke Maternal Grandmother Colon cancer Neg Hx Pancreatic cancer Neg Hx Relation Name Status Comments Maternal Grandfather HEART I SSUES. UNSPECIFIED Maternal Grandmother COLITIS Social History Tobacco Use Types Packs/Day Years Used Date Smoking Tobacco: Every Day Cigarettes 0.5 10 Smokeless Tobacco: Never Alcohol Use Standard Drinks/Week Comments Yes 0 (1 standard drink = 0.6 oz pur e alcohol) rare PHQ-2 Answer Date Recorded Total Score 0 04/08/2022 Childcare Answer Date Recorded Childcare Unknown 12/09/2018 [...] Sign Reading Time Taken Comments Blood Pressure 119/69 04/08/2022 12:28 PM EDT Pulse 82 04/08/2022 12:28 PM EDT Temperature 36.7 C (98.1 F) 01/29/2022 4:41 PM EDT Respiratory Rate 18 04/08/2022 12:28 PM EDT Oxygen Saturation 99% 01/29/2022 4:40 PM EDT Inhaled Oxygen Concentration - - Weight 70.3 kg (155 lb) 04/08/2022 12:28 PM EDT Height 160 cm (5' 3 ) 04/08/2022 12:28 PM EDT Body Mass Index 27.46 04/08/2022 12:28 PM EDT Plan of Treatment Health Maintenance Due Date Last Done Comments DTaP,Tdap and Td Vaccines (5 - Tdap) 01/23/2000 09/20/1991, 01/26/1990, 1989, Additional history exists Tobacco Screening 2001 Adult BMI Screening 04/08/2023 04/08/2022 Depression Screening 04/08/2023 04/08/2022 Influenza Vaccine 02/28/2025 Pap Smear 09/10/2025 09/10/2022 Medical Devices Not on file Insurance [employer] Care Teams Horizontal Boring Mill Operator Relationship Specialty Start Date End Date Prema Guillen DO [address] [place], [place] [phone] PCP - General Family Medicine 01/29/22
--- OUTSIDE RECORDS SUMMARY | 2024-12-08 19:59 | XMS_ITS | Encounter Summary ---
Author Organization [facility] Address [address] [facility] [place] [address] Care Team Providers Care Electrotype Finisher Name Role Phone Prema Guillen DO Primary Care Provider [phone] Encounter Details Date Type Department Care Team (Late Contact Info) Description 04/16/2023 Clinisync Result Encounter [facility] External Department Unsolicited Monique Kelly PA [address] [facility] [address] [place], [place] [address] Social History Tobacco Use Types Packs/Day Years [...] Upcoming Encounters Date Type Department Care Team ([facility] Contact Info) Description 12/14/2025 3:00 PM EDT Office Visit [facility] OB [address] [facility] [phone] Kali Valle DO [address] [place] [address] Dr Enzo [place], [place] [address] documented as of this encounter Procedures Procedure Name Priority Date/Time Associated Diagnosis Comments US OB TRANSVAGINAL 04/16/2023 7: 37 AM EDT documented in this encounter Results * US OB TRANSVAGINAL (04/16/2023 7:37 AM EDT) Anatomical Region Laterality Modality Other 04/16/2023 7:37 AM EDT Narrative 04/16/2023 7:37 AM EDT [address] [address] Ultrasound Report Signed Patient: MAGI KENNY MR#: [id number] : 1990 Acct:[id number] Age/Sex: 33 / F ADM Date: 04/15/23 Loc: US Attending Dr: Monique Kelly Ordering Physician: Monique Kelly Date of Service: 04/15/23 Procedure(s): US OB transvaginal Accession Number(s): [id number] cc: Monique Kelly; Prema Guillen [address] [address] Patient Name: MAGI KENNY MRN: [id number] date: 1990 Sex: F Assigned Patient Location: US Current Patient Location: Accession/Order Number: [id number] Exam Date: 04/15/2023 19:06 Report Date: 04/16/2023 07:37 At the request of: MONIQUE KELLY Procedure: US OB transvaginal EXAMINATION: US OB anatomy, US OB transvaginal [...] 08/30/2023 GARCÍA by EDC: 08/28/2023 US/US OB transvaginal IMPRESSION: Suboptimal visualization of the spine Low lying placenta *Reference: [employer]UM Practice Guideline for the performance of Obstetric Ultrasound Examinations, March 30, 2007. Electronically authenticated by: ABHISHEK PECK Date: 04/16/2023 07:37 Dictated By: Abhishek Peck M.D. Signed By: 04/16/2344 DD/ TD/TT: Patrol Inspector: Procedure Note Radiology, Radiologist, - 04/16/2023 [place] [address] Ultrasound Report Signed Patient: MAGI KENNY MMR#: [id number] : 1990Acct:[id number] Age/Sex: 33 / FADM Date: 04/15/23 Loc: US Attending Dr: Monique Kelly Ordering Physician: Monique Kelly Date of Service: 04/15/23 Procedure(s): US OB transvaginal Accession Number(s): [id number] cc: Monique Kelly; Prema Guillen [place] [phone] Patient Name: MAGI KENNY MRN: [id number] date: 1990 Sex: F Assigned Patient Location: US Current Patient Location: Accession/Order Number: [id number] Exam Date: 04/15/2023 19:06 Report Date: 04/16/2023 07:37 At the request of: MONIQUE KELLY Procedure: US OB transvaginal EXAMINATION: US OB anatomy, US OB transvaginal [...] 08/30/2023 GARCÍA by EDC: 08/28/2023 US/US OB transvaginal IMPRESSION: Suboptimal visualization of the spine Low lying placenta *Reference: AIUM Practice Guideline for the performance of Obstetric Ultrasound Examinations, March 30, 2007. Electronically authenticated by: ABHISHEK PECK Date: 04/16/2023 07:37 Dictated By: Abhishek Peck M.D. Signed By:04/16/2344 DD/ TD/TT: Patrol Inspector: us Monique [facility]USTIN [facility] Final Result documented in this encounter Visit Diagnoses Not on filedocumented in this encounter Care Teams Electrotype Finisher Relationship Specialty Start Date End Date Prema Guillen DO [address] [place] [address] PCP - General Family Medicine 12/23/22 documented as of this encounter
--- OUTSIDE RECORDS SUMMARY | 2024-12-08 19:59 | XMS_ITS | Encounter Summary ---
Author Organization [facility] Address [address] [facility] [place] [address] Care Team Providers Care Dean Of Girls Name Role Phone Prema Guillen DO Primary Care Provider Encounter Details Date Type Department Care Team ([facility] Contact Info) Description 08/28/20[address] Abstract [address] [address] [place] [address] [place] [phone] Social History Tobacco Use Types Packs/Day Years [...] Upcoming Encounters Date Type Department Care Team ([facility] Contact Info) Description 12/14/2025 3:00 PM EDT Office Visit [facility] [address] [place] [address] [place] [address] [place] [address] documented as of this encounter Visit Diagnoses Not on filedocumented in this encounter Care Teams Dean Of Girls Relationship Specialty Start Date End Date Prema Guillen DO [address] [place], [place] [phone] PCP - General Family Medicine 12/23/22 documented as of this encounter
--- OUTSIDE RECORDS SUMMARY | 2024-12-08 19:59 | XMS_ITS | Encounter Summary ---
Author Organization [facility] Address [address] [facility] [place] [address] Care Team Providers Care Auto Heater Mechanic Name Role Phone Prema Guillen DO Primary Care Provider Encounter Details Date Type Department Care Team (Late Contact Info) Description 07/16/2023 Clinisync Result Encounter [facility]S External Department Unsolicited Monique Kelly PA [address] [facility] [address] [place], [place] [address] Social History Tobacco Use Types Packs/Day Years [...] Upcoming Encounters Date Type Department Care Team ([facility] Contact Info) Description 12/14/2025 3:00 PM EDT Office Visit [facility] OB [address] [facility] [phone] Kali Valle DO [address] [place] [address] Dr Enzo [place], [place] [address] documented as of this encounter Procedures Procedure Name Priority Date/Time Associated Diagnosis Comments US OB GROWTH 07/16/2023 7:10 AM EST documented in this encounter Results * US OB GROWTH (07/16/2023 7:10 AM EST) Anatomical Region Laterality Modality Other 07/16/2023 7:10 AM EST Narrative 07/16/2023 7:12 AM EST [address] [address] Ultrasound Report Signed Patient: MAGI KENNY MR#: [id number] : 1990 Acct:[id number] Age/Sex: 33 / F ADM Date: 07/15/23 Loc: US Attending Dr: Monique Kelly Ordering Physician: Monique Kelly Date of Service: 07/15/23 Procedure(s): US OB growth Accession Number(s): [id number] cc: Monique Kelly; Prema Guillen [place] [phone] Patient Name: MAGI KENNY MRN: [id number] date: 1990 Sex: F Assigned Patient Location: [facility] Current Patient Location: US Accession/Order Number: [id number] Exam Date: 07/15/2023 17:10 Report Date: 07/16/2023 07:10 At the request of: MONIQUE KELLY Procedure: US OB growth EXAMINATION: US OB growth HISTORY: EXCESSIVE GROWTH AFFECTING O36.63X0 COMPARISON: No relevant comparison available. FINDINGS: Heart Rate: 150.8 bpm Amniotic Fluid Volume: 18.6 cm Number: 1.0 Position: Cephalic presentation, longitudinal lie Maximum Vertical Pocket: 5.9 cm cm 4.7 cm cm 4.6 cm cm 3.4 cm cm BIOMETRY: BPD: 8.8 cm cm; 35 weeks 3 days; 90% HC: 32.4 cmcm; 36 weeks 5 days , 87% AC: 29.2 cm cm; 33 weeks 2 days, 43% FL: 6.3 cm cm; 32 weeks 5 days; 17.9 % % EFW: 2235.5 grams, 4 lbs. 15 oz., 43% FL/AC: 21.6 FL/BPD: 72.1 HC/AC: 1.1 GESTATIONAL AGE: Age by EDC: 33 weeks 4 days GARCÍA by EDC: 08/29/2023 Age by US: 34 weeks 4 days GARCÍA by US: 08/22/2023 US/US OB growth IMPRESSION: Normal interval growth Electronically authenticated by: ABHISHEK PECK Date: 07/16/2023 07:10 Dictated By: Abhishek Peck M.D. Signed By: 07/16/23711 DD/ TD/TT: Tierce Filler: Procedure Note Radiology, Radiologist, - 07/16/2023 [place] [address] Ultrasound Report Signed Patient: MAGI KENNY MMR#: [id number] : 1990Acct:[id number] Age/Sex: 33 / FADM Date: 07/15/23 Loc: US Attending Dr: Monique Kelly Ordering Physician: Monique Kelly Date of Service: 07/15/23 Procedure(s): US OB growth Accession Number(s): [id number] cc: Monique Kelly; Prema Guillen [place] [phone] Patient Name: MAGI KENNY MRN: [id number] date: 1990 Sex: F Assigned Patient Location: [facility] Current Patient Location: US Accession/Order Number: [id number] Exam Date: 07/15/2023 17:10 Report Date: 07/16/2023 07:10 At the request of: MONIQUE KELLY Procedure: US OB growth EXAMINATION: US OB growth HISTORY: EXCESSIVE GROWTH AFFECTING O36.63X0 COMPARISON: No relevant comparison available. FINDINGS: Heart Rate: 150.8 bpm Amniotic Fluid Volume: 18.6 cm Number: 1.0 Position: Cephalic presentation, longitudinal lie Maximum Vertical Pocket: 5.9 cm cm 4.7 cm cm 4.6 cm cm 3.4 cm cm BIOMETRY: BPD: 8.8 cm cm; 35 weeks 3 days; 90% HC: 32.4 cmcm; 36 weeks 5 days , 87% AC: 29.2 cm cm; 33 weeks 2 days, 43% FL: 6.3 cm cm; 32 weeks 5 days; 17.9 % % EFW: 2235.5 grams, 4 lbs. 15 oz., 43% FL/AC: 21.6 FL/BPD: 72.1 HC/AC: 1.1 GESTATIONAL AGE: Age by EDC: 33 weeks 4 days GARCÍA by EDC: 08/29/2023 Age by US: 34 weeks 4 days GARCÍA by US: 08/22/2023 US/US OB growth IMPRESSION: Normal interval growth Electronically authenticated by: ABHISHEK PECK Date: 07/16/2023 07:10 Dictated By: Abhishek Peck M.D. Signed By:07/16/23711 DD/ 9 TD/TT: Tierce Filler: us Monique [facility] Final Result documented in this encounter Visit Diagnoses Not on filedocumented in this encounter Care Teams Auto Heater Mechanic Relationship Specialty Start Date End Date Prema Guillen DO [address] [place] [address] PCP - General Family Medicine 12/23/22 documented as of this encounter
--- OUTSIDE RECORDS SUMMARY | 2024-12-08 19:59 | XMS_ITS | Encounter Summary ---
Author Organization [facility] Address [address] [place] [address] Care Team Providers Care Ball Rolling Machine Operator Name Role Phone Prema Guillen DO Primary Care Provider [phone] Encounter Details Date Type Department Care Team (Late Contact Info) Description 08/20/2023 Clinisync Result Encounter NOMS External Department Unsolicited Eri aVlle, DO [facility] [place] [address] Social History Tobacco Use Types Packs/Day Years [...] 12/14/2025 3:00 PM EDT Office Visit [facility] OB [address] [place] [phone] Eri Valle [facility] [address] documented as of this encounter Procedures Procedure Name Priority Date/Time Associated Diagnosis Comments US OB GROWTH 08/20/2023 7:16 AM EST documented in this encounter Results * US OB GROWTH (08/20/2023 7:16 AM EST) Anatomical Region Laterality Modality Other 08/20/2023 7:16 AM EST Narrative 08/20/2023 7:19 [place] [address] Ultrasound Report Signed Patient: SANGITA KENNY MR#: [id number] : 1990 Acct:[id number] Age/Sex: 33 / F ADM Date: 08/19/23 Loc: US Attending Dr: Eri Valle D.O. Ordering Physician: Eri Valle D.O. Date of Service: 08/19/23 Procedure(s): US OB growth Accession Number(s): [id number] cc: Eri Valle D.O.; Prema Guillen [place] [phone] Patient Name: SANGITA KENNY MRN: [id number] date: 1990 Sex: F Assigned Patient [facility] Current Patient Location: US Accession/Order Number: [id number] Exam Date: 08/19/2023 18:15 Report Date: 08/20/2023 07:16 At the request of: ERI VALLE Procedure: US OB growth EXAMINATION: US OB growth HISTORY: EXCESSIVE GROWTH AFFECTING O36.63X0 COMPARISON: No relevant comparison available. FINDINGS: Heart Rate: 135.0 bpm Number: 1.0 Position: CEPHALIC Amniotic Fluid Volume: 17.2 cm Maximum Vertical Pocket: 5.7 cm BIOMETRY: BPD: 9.6 cm cm; 39 weeks 3 days; 91% HC: 34.8 cmcm; 40 weeks 3 days ; 76% AC: 34.8 cm cm; 38 weeks 5 days; 74% FL: 7.3 cm cm; 37 weeks 3 days; 27% EFW: 3572.4 grams; 70% FL/AC: 21.0 FL/BPD: 75.9 HC/AC: 1.0 GESTATIONAL AGE: Age by EDC: 38 weeks 4 days GARCÍA by EDC: 08/29/2023 Age by US: 39 weeks 0 days GARCÍA by US: 08/26/2023 US/US OB growth IMPRESSION: 1. Single live intrauterine with growth detailed above. Electronically authenticated by: DAVID JORDAN Date: 08/20/2023 07:16 Dictated By: David Jordan M.D. Signed By: 08/20/23718 DD/ 5 TD/TT: Roll Plugger: Procedure Note Radiology, Radiologist, - 09/03/2023 [place] [address] Ultrasound Report Signed Patient: SANGITA KENNY MMR#: [id number] : 1990Acct:[id number] Age/Sex: 33 / FADM Date: 08/19/23 Loc: US Attending Dr: Eri Valle D.O. Ordering Physician: Eri Valle D.O. Date of Service: 08/19/23 Procedure(s): US OB growth Accession Number(s): [id number] cc: Eri Valle D.O.; Prema Guillen [place] [phone] Patient Name: SANGITA KENNY MRN: [id number] date: 1990 Sex: F Assigned Patient Location: [facility] Current Patient Location: US Accession/Order Number: [id number] Exam Date: 08/19/2023 18:15 Report Date: 08/20/2023 07:16 At the request of: ERI VALLE Procedure: US OB growth EXAMINATION: US OB growth HISTORY: EXCESSIVE GROWTH AFFECTING O36.63X0 COMPARISON: No relevant comparison available. FINDINGS: Heart Rate: 135.0 bpm Number: 1.0 Position: CEPHALIC Amniotic Fluid Volume: 17.2 cm Maximum Vertical Pocket: 5.7 cm BIOMETRY: BPD: 9.6 cm cm; 39 weeks 3 days; 91% HC: 34.8 cmcm; 40 weeks 3 days ; 76% AC: 34.8 cm cm; 38 weeks 5 days; 74% FL: 7.3 cm cm; 37 weeks 3 days; 27% EFW: 3572.4 grams; 70% FL/AC: 21.0 FL/BPD: 75.9 HC/AC: 1.0 GESTATIONAL AGE: Age by EDC: 38 weeks 4 days GARCÍA by EDC: 08/29/2023 Age by US: 39 weeks 0 days GARCÍA by US: 08/26/2023 US/US OB growth IMPRESSION: 1. Single live intrauterine with growth detailed above. Electronically authenticated by: DAVID JORDAN Date: 08/20/2023 07:16 Dictated By: David Jordan M.D. Signed By:08/20/23718 DD/ 5 TD/TT: Roll Plugger: us Eri Valle DO [facility] Final Result documented in this encounter Visit Diagnoses Not on filedocumented in this encounter Care Teams Ball Rolling Machine Operator Relationship Specialty Start Date End Date Prema Guillen DO [address] [place] [address] PCP - General Family Medicine 12/23/22 documented as of this encounter
--- OUTSIDE RECORDS SUMMARY | 2024-12-08 19:59 | XMS_ITS | Encounter Summary ---
Author Organization [facility] Address [address] [place] [address] Care Team Providers Care Range Examiner Name Role Phone Prema Guillen DO Primary Care Provider [phone] Encounter Details Date Type Department Care Team (Late Contact Info) Description 08/20/2023 Clinisync Result Encounter [facility] External Department Unsolicited Eri Valle, DO [facility] [place], [place] [id number] Social History Tobacco Use Types Packs/Day Years [...] 12/14/2025 3:00 PM EDT Office Visit [facility] [address] [place] [id number] Eri Valle, DO [facility] [place] [address] documented as of this encounter Procedures Procedure Name Priority Date/Time Associated Diagnosis Comments US OB BPP W NON-STRESS 08/20/2023 7:12 AM EST documented in this encounter Results * US OB BPP W NON-STRESS (08/20/2023 7:12 AM EST) Anatomical Region Laterality Modality Other 08/20/2023 7:12 AM EST Narrative 08/20/2023 7:15 AM EST [address] [address] Ultrasound Report Signed Patient: SANGITA KENNY MR#: [id number] : 1990 Acct:[id number] Age/Sex: 33 / F ADM Date: 08/19/23 Loc: US Attending Dr: Eri Valle D.O. Ordering Physician: Eri Valle D.O. Date of Service: 08/19/23 Procedure(s): US OB BPP w non-stress Accession Number(s): [id number] cc: Eri Valle D.O.; Prema Guillen [address] [address] Patient Name: SANGITA KENNY MRN: [facility] [employer]:[id number] date: 1990 Sex: F Assigned Patient Location: US Current Patient Location: Accession/Order Number: [id number] Exam Date: 08/19/2023 18:15 Report Date: 08/20/2023 07:12 At the request of: ERI VALLE Procedure: US OB BPP w non-stress EXAMINATION: US OB BPP w non-stress HISTORY: EXCESSIVE GROWTH AFFECTING O36.63X0 COMPARISON: Ultrasound OB biophysical 08/12/2023 TECHNIQUE: Ultrasound biophysical profile was performed in the radiology department. BREATHING MOVEMENTS: 2.0 GROSS BODY MOVEMENTS: 2.0 TONE: 2.0 QUALITATIVE AMNIOTIC FLUID VOLUME: 2.0 PRESENTATION: CEPHALIC HEART RATE: 135.0 bpm bpm. AMNIOTIC FLUID VOLUME: 17.2 cm GESTATIONAL AGE: 38 weeks 4 days CONCLUSION: Total biophysical profile score 8.0. Electronically authenticated by: ROJELIO JORDAN Date: 08/20/2023 07:12 Dictated By: Rojelio Jordan M.D. Signed By: 08/20/23714 DD/ 1 TD/TT: Numerical Control Nesting Operator: Procedure Note Radiology, Radiologist, - 09/03/[address] [address] Ultrasound Report Signed Patient: SANGITA KENNY MMR#: [id number] : 1990Acct:[id number] Age/Sex: 33 / FADM Date: 08/19/23 Loc: US Attending Dr: Eri Valle D.O. Ordering Physician: Eri Valle D.O. Date of Service: 08/19/23 Procedure(s): US OB BPP w non-stress Accession Number(s): [id number] cc: Eri Valle D.O.; Prema Guillen [place] [id number] Patient Name: SANGITA KENNY MRN: [id number] date: 1990 Sex: F Assigned Patient Location: US Current Patient Location: Accession/Order Number: [id number] Exam Date: 08/19/2023 18:15 Report Date: 08/20/2023 07:12 At the request of: ERI VALLE Procedure: US OB BPP w non-stress EXAMINATION: US OB BPP w non-stress HISTORY: EXCESSIVE GROWTH AFFECTING O36.63X0 COMPARISON: Ultrasound OB biophysical 08/12/2023 TECHNIQUE: Ultrasound biophysical profile was performed in the radiology department. BREATHING MOVEMENTS: 2.0 GROSS BODY MOVEMENTS: 2.0 TONE: 2.0 QUALITATIVE AMNIOTIC FLUID VOLUME: 2.0 PRESENTATION: CEPHALIC HEART RATE: 135.0 bpm bpm. AMNIOTIC FLUID VOLUME: 17.2 cm GESTATIONAL AGE: 38 weeks 4 days CONCLUSION: Total biophysical profile score 8.0. Electronically authenticated by: ROJELIO JORDAN Date: 08/20/2023 07:12 Dictated By: Rojelio Jordan M.D. Signed By:08/20/23714 DD/ 1 TD/TT: Numerical Control Nesting Operator: us Eri Valle DO [facility] Final Result documented in this encounter Visit Diagnoses Not on filedocumented in this encounter Care Teams Range Examiner Relationship Specialty Start Date End Date Prema Guillen DO [address] [place] [address] PCP - General Family Medicine 12/23/22 documented as of this encounter
--- OUTSIDE RECORDS SUMMARY | 2024-12-08 19:59 | XMS_ITS | Patient Health Record ---
Author Organization [facility] vices Address [address] [place] [id number] Care Team Providers Care Concrete Finisher Apprentice Name Role Phone Estefany Selby Unavailable [phone] Mikki Herman Unavailable [phone] Noris Normanila Unavailable [phone] Allergies Allergen (clinical drug ingredient) Drug/Non Drug Allergy documented on EMR Reaction Allergy Type Onset Date Status Penicillin Rash Drug Allergy 10/04/2020 Activ e Reason For Referral No Information Social History Tobacco Use: Social History Observation Description Date Details (start date - stop date) Current Smoker NA - NA Sex Assigned At : Social History Observation Description Sex Assigned At Female Tobacco Control (Standard) Question Answer Notes Tobacco use: Current every day smoker Problems Problem Type SNOMED Code ICD Code Onset Dates Problem Status W/U Status Risk Notes Problem Tobacco user (385574461) Cigarette nicotine dependence without complication (F17.210) Active confirmed Problem 388569177 BMI 35.0-35.9,adult (Z68.35) Active confirmed Problem 226932051 BMI 32.0-32.9,adult (Z68.32) Active confirmed Problem 666987796 Breast infection in female (N61.0) Active confirmed Problem Tobacco use (836070877) Tobacco use (Z72.0) Active confirmed Story:down to 5 cigs a day, Problem Major depression, single episode (32128995) Depression motion (F32.9) Active confirmed Comment:sta rt on ativan, increase celexa to 20 mg,Story:ce antione helped some - to help came her down.,Descr iption:Depr essive disorder Problem Mixed anxiety and depressive disorder (265193027) Anxiety and depression (F41.9) Active confirmed Problem Obesity (900090474) Obesity with body mass index (BMI) of 30.0 to 39.9 (E66.9) Active confirmed Description :Obesity (BMI 30-39.9) Problem Exercise-induc ed asthma (00819839) Exercise-induce d asthma (J45.990) Active confirmed Vital Signs Heart Rate 76 /min 11/18/2024 Blood pressure diastolic 77 mm Hg 11/18/2024 Height-cm 158.75 cm 11/18/2024 Weight-kg 90.72 kg 11/18/2024 Height 62.50 in 11/18/2024 Blood pressure systolic 121 mm Hg 11/18/2024 Weight 200 lbs 11/18/2024 BMI 35.99 kg/m2 11/18/2024 Encounters Encounter Location Date Provider Diagnosis [facility] [address] [place] [id number] 05/06/2024 Dominga Norman Encounter for scre ening for dental disorders Z13.84 ; Dietary counseling Z71.3 ; Exercise counseling Z71.82 ; BMI 35.0-35.9,adult Z68.35 ; Encounter for dental examination and cleaning with abnormal findings Z01.21 and Encounter for dental examination and cleaning without abnormal findings Z01.20 [facility] [address] [place], [place] [id number] 11/18/2024 Mikki Herman Obesity, Class II, BMI 35-39.9 E66.812 ; Caries of dentin K02.62 ; Encounter for dental examination and cleaning with abnormal findings Z01.21 ; Cigarette nicotine dependence without complication F17.210 ; Dietary counseling Z71.3 and Exercise counseling Z71.82 Assessments Encounter Date Diagnosis (ICD Code) Assessment Notes Treatment Notes Treatment Clinical Notes Section Notes 05/06/2024 Encounter for screening for dental disorders (ICD-10 - Z13.84) 05/06/2024 Dietary counseling (ICD-10 - Z71.3) 11/18/2024 Obesity, Class II, BMI 35-39.9 (ICD-10 - E66.812) 11/18/2024 Caries of dentin (ICD-10 - K02.62) 05/06/2024 Exercise counseling (ICD-10 - Z71.82) 05/06/2024 BMI 35.0-35.9,adult (ICD-10 - Z68.35) 11/18/2024 Encounter for dental examination and cleaning with abnormal findings (ICD-10 - Z01.21) 05/06/2024 Encounter for dental examination and cleaning with abnormal findings (ICD-10 - Z01.21) 11/18/2024 Cigarette nicotine dependence without complication (ICD-10 - F17.210) Patient provided with [id number] phone line. 11/18/2024 Dietary counseling (ICD-10 - Z71.3) 05/06/2024 Encounter for dental examination and cleaning without abnormal findings (ICD-10 - Z01.20) 11/18/2024 Exercise counseling (ICD-10 - Z71.82) Plan Of Treatment No Information Insurance Providers Payer Name Payer Address Payer Phone Subscriber Number Group Number Insured Name Patient Relationship to Insured Coverage Start Date Coverage End Date [facility] [employer] [address] [place] [address] JOSE Gilbert [id number] Sangita Prather Self - patient is the insured 2 [facility] [address] [place] [address] [id number] Sangita Prather Self - patient is the insured 2 Medical (General) History Medical History History ICD Code Anxiety and depression Asthma Surgical History Surgery Date(Month/Year) Surgery on Right Breast
--- OUTSIDE RECORDS SUMMARY | 2024-12-08 20:01 | XMS_ITS | CCD ---
Author Organization [facility] Care Team Providers Care Director Of Content Marketing Name Role Phone Mindy Pream GREGORY Primary Care Provider TORI ., DR HWANG Attending Unavailable TORI ., DR HWANG Consulting Unavailable TORI ., DR HWANG Primary Care Unavailable TORI ., DR HWANG Admitting Unavailable RobsonPrema mercedes DO Primary Care Provider LETICIA, MONIQUE Attending Unavailable TORI, ERI Attending Unavailable LETICIA, MONIQUE Attending Unavailable TORI, ERI Attending Unavailable TORI, ERI Attending Unavailable LETICIA, MONIQUE Attending Unavailable LETICIA, MONIQUE Attending Unavailable LETICIA, MONIQUE Attending Unavailable TORI, ERI Attending Unavailable TORI, ERI Attending Unavailable TORI, ERI Attending Unavailable Allergies Allergy Classification Reported Allergen(s) Allergy Type Date of Onset Reaction(s) Facility (8 sources) Penicillins; Translations: [Penicillins] Propensity to adverse reactions to drug [facility] (6 sources) Benzathine penicillin - chemical Propensity to [...] daily.. 1 kit 0 06/11/2023 06/10/2024 Active copper 313 mg drug implant (3 sources) Copper-containing Intrauterine Device Start: 11-04-2023 End: 11-01-2033 copper (Paragard) IUD ethinyl estradiol 0.035 mg / norgestimate 0.25 mg oral tablet (1 source) Progestin, Estrogen norgestimate -ethin yl estradiol ([place]) 0.25-35 MG-MCG tablet Take 1 tablet by [...] PO) Take by mouth. 0 Active Problems Active Problems Problem Classification Problem Date Documented Date Episodic/Chronic Immunizations and screening for infectious disease (1 source) Encounter for screening for human papillomavirus (HPV); Translations: [ENC SCREENING HUMAN PAPILLOMAVIRUS] Onset: 09-16-2022 Episodic Nonmalignant breast conditions (1 source) Cyst of right breast; Translations: [Solitary cyst of right breast] Episodic Other complications of (2 sources) Excessive growth affecting management of mother; Translations: [Maternal care for excessive growth, third trimester, not applicable or unspecified] 08-13-2023 Episodic Other screening for suspected conditions (not mental disorders or infectious disease) (4 sources) Encounter for screening for malignant neoplasm of cervix; Translations: [ENC SCREENING MALIG NEOPLASM CERV] Onset: 09-10-2022 Episodic Past or Other Problems Problem Classification Problem Date Documented Da te Episodic/Chronic Other complications of (6 sources) RhD negative; Translations: [Other specified related conditions, unspecified trimester] Onset: 06-24-2023 Resolved: 08-28-2023 06-24-2023 Episodic Other and delivery including normal (9 sources) Third trimester ; Translations: [Encounter for supervision of normal , unspecified, third trimester] Onset: 06-24-2023 Resolved: 08-28-2023 07-31-2023 Episodic Results Test Name Value Interpretation Reference Range Facility Urinalysis macro (dipstick) panel (U)on 08-13-2023 Bilirubin, UA Negative Negative - 4(70) +++ mg/dL [facility] Blood, UA Negative Negative - 50 Farooq/mcL [facility] Healthcare Clarity, UA Clear [facility] Color, UA Yellow [facility] Glucose, UA Negative Negative - 1999(110) ++++ mg/dL [facility] Interpretation and review of laboratory results Abnormal [facility] Ketones, UA Positive Negative - 160(16) ++++ mg/dL [facility] Leukocytes, UA Positive Negative - 500+++ Mir/mcL [facility] Nitrite, UA Negative Negative - Positive [facility] pH, UA 7.0 5 - [address] [facility] Protein, UA Trace Negative - 1999(20) ++++ mg/dL [facility] Spec Grav, UA 1.030 1 - 1.03 [facility] Urobilinogen, UA 0.2 0.2 - 12 mg/dL [facility] Urinalysis macro (dipstick) panel (U)on 08-06-2023 Bilirubin, UA Positive Negative - 4(70) +++ mg/dL [facility] Blood, UA Positive Negative - 50 Farooq/mcL [facility] Clarity, UA Clear [facility] Color, UA Yellow [facility] Glucose, UA Negative Negative - 1999(110) ++++ mg/dL [facility] Interpretation and review of laboratory results Abnormal [facility] Ketones, UA Positive Negative - 160(16) ++++ mg/dL [facility] Leukocytes, UA Positive Negative - 500+++ Mir/mcL [facility] Healthcare Nitrite, UA Negative Negative - Positive [facility] pH, UA 5.5 5 - 9 [facility] Protein, UA Positive Negative - 1999(20) ++++ mg/dL [facility] Spec Grav, UA 1.030 1 - 1.03 [facility] Urobilinogen, UA 1.0 0.2 - 12 mg/dL [facility] PAP ACOG PANEL 2: 30 to 65on 09-19-2022 . . Normal [facility] Comment on above: Result Comment: Perf ormed at: WB Performed By: #### [id number] #### [facility] [address] [address] [address] Eduardo Sandoval Age Gdln ACOG Testing 30-65 Normal [facility] Comment on above: Performed By: #### [id number] #### [facility] [address] [address] [address] Eduardo Sandoval DIAGNOSIS: Comment Normal [facility] Comment on above: Result Comment: NEGA TIVE FOR INTRAEPITHELIAL LESION OR MALIGNANCY. CELLULAR CHANGES ASSOCIATED WITH INFLAMMATION ARE PRESENT. Performed at: WB Performed By: #### [id number] #### [facility] [address] [address] [address] Eduardo Sandoval HPV Aptima Positive Abnormal Negative [facility] Comment on above: Result Comment: This nucleic acid amplification test detects fourteen high-risk HPV types (16,18,31,33,35,39,45,51,52,56,58,59,66,68) without differentiation. Performed at: =G Performed By: #### [id number] #### [facility] [address] [address] [address] Eduardo Sandoval HPV Genotype 16 Negative Normal Negative [facility] Comment on above: Performed By: #### [id number] #### [facility] [address] [address] [address] Eduardo Sandoval HPV Genotype 18,45 Negative Normal Negative [facility] Comment on above: Performed By: #### [id number] #### [facility] [address] [address] [address] Eduardo Sandoval HPV Genotype Reflex Comment Normal [facility] Comment on above: Result Comment: Pietro dillon, see HPV Genotype results. Performed at: WB Performed By: #### [id number] #### [facility] [address] [place] [address] Dr. Eduardo Sandoval Methodology: Comment Normal [facility] Comment on above: Result Comment: This liquid based ThinPrep(R) pap test was screened with the use of an image guided system. Performed at: WB Performed By: #### [id number] #### [facility] [address] [place] [address] Dr. Eduardo Sandoval Note: Comment Normal [facility] Comment on above: Result Comment: The Pap smear is a screening test designed to aid in the detection of premalignant and malignant conditions of the uterine cervix. It is not a diagnostic procedure and should not be used as the sole means of detecting cervical cancer. Both false-positive and false-negative reports do occur. . Performed at: WB Performed By: #### [id number] #### [facility] [address] [place] [address] Dr. Eduardo Sandoval Performed by: Comment Normal [facility] Comment on above: Result Comment: Zabrina Rivera, Manager Fiber Performed at: WB Performed By: #### [id number] #### [facility] [address] [place] [address] Dr. Eduardo Sandoval Specimen adequacy: Comment Normal [facility] Comment on above: Result Comment: Sati sfactory for evaluation. Endocervical and/or squamous metaplastic cells (endocervical component) are present. Areas of partially obscuring inflammatory exudate are present. Performed at: WB Performed By: #### [id number] #### [facility] [address] [place] [address] Dr. Eduardo Sandoval Vital Signs Date Time Vital Sign Value Performing Clinician Facility 12-08-2024 13:55-0400 Body mass index (BMI) [Ratio] 32.42 kg/m2 [employer] Work Phone: [facility] 12-08-2024 13:55-0400 Body weight 83.01 kg [employer] Work Phone: [facility] 12-08-2024 13:55-0400 Diastolic blood pressure 72 mm[Hg] Eri Tori DO Work Phone: [facility] 12-08-2024 13:55-0400 Systolic blood pressure 118 mm[Hg] Eri Tori DO Work Phone: [facility] 08-13-2023 14:05-0500 Body mass index (BMI) [Ratio] 35.39 kg/m2 Eri Tori DO Work Phone: [facility] 08-13-2023 14:05-0500 Body weight 90.63 kg Eri Tori DO Work Phone: [facility] 08-13-2023 14:05-0500 Diastolic blood pressure 74 mm[Hg] Eri Tori DO Work Phone: [facility] 08-13-2023 14:05-0500 Systolic blood pressure 118 mm[Hg] Eri Tori DO Work Phone: [facility] 08-06-2023 10:26-0500 Body mass index (BMI) [Ratio] 34.86 kg/m2 Monique Fontana PA Work Phone: [facility] 08-06-2023 10:26-0500 Body weight 89.27 kg Monique Fontana PA Work Phone: [facility] 08-06-2023 10:26-0500 Diastolic blood pressure 70 mm[Hg] Monique Fontana PA Work Phone: [facility] 08-06-2023 10:26-0500 Systolic blood pressure 114 mm[Hg] Monique Fontana PA Work Phone: [facility] 09-25-2021 12:49-0400 Body height 160 cm Dulce Coronado MD Work Phone: [facility] 09-25-2021 12:49-0400 Body mass index (BMI) [Ratio] 29.58 kg/m2 Dulce Coronado MD Work Phone: [facility] 09-25-2021 12:49-0400 Body temperature 98.49 [degF] Dulce Coronado MD Work Phone: [facility] 09-25-2021 12:49-0400 Body weight 75.75 kg Dulce Coronado MD Work Phone: [facility] 09-25-2021 12:49-0400 Diastolic blood pressure 70 mm[Hg] Dulce Coronado MD Work Phone: [facility] 09-25-2021 12:49-0400 Heart rate 80 /min Dulce Coronado MD Work Phone: [facility] 09-25-2021 12:49-0400 Systolic blood pressure 131 mm[Hg] Dulce Coronado MD Work Phone: [facility] Encounters Encounter Date Encounter Type Care Provider Facility Start: 12-08-2024 End: 12-08-2024 Bamboo flowsheet Eri Tori DO Work Phone: [facility] Start: 12-08-2024 End: 12-08-2024 Bamboo flowsheet Eri Tori DO Work Phone: [facility] Start: 12-08-2024 End: 12-08-2024 Patient encounter procedure Eri Tori DO Work Phone: [facility] Start: 12-08-2024 End: 12-08-2024 Periodic preventive med est patient 18-39 yrs Eri Tori DO Work Phone: [facility] Comment on above: Well woman exam with routine gynecological exam Start: 12-02-2023 End: 12-02-2023 ambulatory ERI TORI Not Available Start: 11-04-2023 End: 11-04-2023 ambulatory ERI TORI Not Available Start: 10-07-2023 End: 10-07-2023 ambulatory MONIQUE LETICIA Not Available Start: 08-20-2023 End: 08-20-2023 ambulatory ERI TORI Not Available Start: 08-13-2023 End: 08-13-2023 flow sheet Eri Tori DO Work Phone: [facility] Comment on above: Third trimester preg leo; Excessive growth affecting management of in third trimester, single or unspecified fetus Start: 08-13-2023 End: 08-13-2023 ambulatory ERI VALLE Not Available Start: 08-06-2023 End: 08-06-2023 flow sheet Monique FAUSTIN Work Phone: [facility] Comment on above: Third trimester preg leo Start: 08-06-2023 End: 08-06-2023 ambulatory MONIQUE KELLY Not Available Start: 07-23-2023 End: 07-23-2023 [...] 30 minutes Dulce Coronado MD Work Phone: [facility] Comment on above: Breast cyst, right ( Primary Dx) Procedures Date Procedure Procedure Detail Performing Clinician Start: 08-13-2023 Urnls dip stick/tabl et rgnt non-auto w/o micrscp Eri Tori DO Work Phone: Start: 08-06-2023 Urnls dip stick/tabl et rgnt non-auto w/o micrscp Eri Tori DO Work Phone: Plan of Treatment Date Care Activity Detail Author Start: 12-14-2025 End: 12-14-2025 Patient encounter procedure 12/14/2025 3:00 PM EDT Office Visit [facility] [address] [place] [phone] Eri Valle DO [address] [place] [address] [facility] Start: 12-08-2024 End: 12-08-2024 Patient encounter procedure 12/08/2024 2:00 PM EDT Office Visit [facility] [address] [place] [phone] Eri Valle, DO [address] [place] [address] Arrived [facility] Comment on above: Arrived Start: 09-17-2023 End: 09-17-2023 Patient encounter procedure 09/17/2023 4:00 PM EDT Office Visit [facility] [address] [place] [address] Eri Valle, DO [address] [place] [address] [facility] Start: 08-20-2023 End: 08-20-2023 Patient encounter procedure 08/20/2023 3:50 PM EST Routine [facility] [address] [place] [phone] Eri Valle, DO [address] [place] [address] [facility] Start: 08-13-2023 End: 08-13-2023 Patient encounter procedure 08/13/2023 2:00 PM EST Routine [facility] [address] [place] [phone] Eri Valle, DO [address] [place] [address] [facility] Start: 08-13-2023 End: 08-13-2024 US for US OB SCAN FOR GROWTH Imaging Routine Excessive growth affecting management of in third trimester, single or unspecified fetus Expected: 08/13/2023 (Approximate), Expires: 08/13/2024 [facility] Work Phone: Comment on above: Expected: 08/13/2023 (Approximate), Expires: 08/13/2024 Start: 02-28-2021 Influenza vaccination INFLUENZA VACC INE (#1) [facility] Start: 2010 Screening for malign ant neoplasm of cervix CERVICAL CANCER SCREENING DISCUSSION [facility] Start: 01-23-2008 Third diphtheria, tetanus and acellular pertussis (DTaP) vaccination TDAP (ADULT) [facility] Start: 2007 Tetanus vaccination TETANUS [facility] Start: 01-23-2004 HIV screening HIV SCREENING DISCUSSION [facility] Start: 1994 COVID-19 VACCINE (1) COVID-19 VACCIN E (1) [facility] Start: 1989 Hepatitis C antibody , confirmatory test HEPATITIS C VIRUS SCREENING [facility] Cytology Cervical or vaginal smear or scraping study Pap Smear Pathology and Cytology Routine Well woman exam with routine gynecological exam Ordered: 12/08/2024 [facility] Work Phone: Comment on above: Ordered: 12/08/2024 GBS swab, PCR GBS swab, PCR La b Routine Third trimester Ordered: 08/06/2023 [facility] [employer] Work Phone: Comment on above: Ordered: 08/06/2023 Human papilloma viru s DNA [Presence] in Unspecified specimen by Probe with amplification HPV DNA probe, amplified Microbiology Routine Well woman exam with routine gynecological exam Ordered: 12/08/2024 [facility] Comment on above: Ordered: 12/08/2024 Payers Date Payer Category Payer Unknown [employer] [id number] 2022-Present [address] [address] [place] [address] [id number] 2022 Unknown [id number] 2021 Private Health Insurance 1.2 [id number] 1989 Unknown [id number] 1989 Unknown [id number] .1259 1989 Unknown [id number] [id number] .9 1989 Unknown [id number] [id number] .1259 1989 Unknown [id number] [id number] .9 1989 Unknown [id number] [id number] .1259 1989 Unknown [id number] 2.16.840.1.035557.3.579.2 .9 1989 Unknown [id number] [id number] .1259 1989 Unknown [id number] 2.16.840.1.316304.3.579.2 .9 1989 Unknown [id number] 2.16.840.1.525291.3.579.2 .1259 1989 Unknown [id number] [id number] .9 1989 Unknown [id number] .1259 1959 Unknown [id number] Social History Date Type Detail Facility [facility]: [facility] History of tobacco use Cigarette Smoker A [facility] Start: 09-25-2021 Tobacco use and exposure Smokeless tobacco non-user [facility] Start: 09-25-2021 End: 12-08-2024 Alcohol intake Current drinker of alcohol (finding) [facility] Start: 09-25-2021 History SDOH Alcohol Comment Occasionally [facility] Start: 1990 Sex Assigned At Not on file A [facility] Start: 04-15-2023 [facility] Start: 04-15-2023 End: 12-08-2024 History of Social function [facility] Start: 04-15-2023 End: 12-08-2024 Tobacco use panel [facility] Start: 12-06-2022 [facility] Procedure Code Equipment Code Equipment Origin al Text Equipment Identifier Dates 1 each by Other route in the morning and 1 each at noon and 1 each in the evening and 1 each before bedtime. Use as instructed. [id number] Start: 06-10-2023 End: 07-04-2024 History of Present illness Narrative 12-08-2024 Davinaadeline Ruvalcaba LPN - 12/08/2024 2:00 PM EDT Note Date & Type Note Facility 12-08-2024 History of Presen t illness Narrative Reason for Appointment: Patient ID: Sangita Prather [...] nursing note reviewed. Exam conducted with a hazardous waste remover present. Vitals: Estimated body mass index is 32.42 kg/m as calculated from the following: Height [...] [facility] History of Present illness Narrative 08-13-2023 Davina Ruvalcaba LPN - 08/13/2023 2:00 PM EST Note Date & Type Note Facility 08-13-2023 History of Presen t illness Narrative Reason for Appointment: Patient ID: Sangita Prather is a 33 y.o. female who presents [...] nursing note reviewed. Exam conducted with a hazardous waste remover present. Vitals: Estimated body mass index is [...] Narrative Reason for Appointment: Patient ID: Sangita Prather is a 33 y.o. female who presents [...] nursing note reviewed. Exam conducted with a hazardous waste remover present. Vitals: Estimated body mass index is [...] Celeste Jaramillo LPN - 09/25/2021 1:00 PM GLORIATTagustin Coronado MD - 09/25/2021 1:00 PM EDT [...] Medications Medication Sig Dispense Refill norgestimate-ethinyl estradiol ([place]) 0.25-35 MG-MCG tablet Take 1 tablet by [...] them back PRN. documented in this encounter [facility] Evaluation note Note Date & Type Note Facility Evaluation note Diagnosis Breast cyst, right- Primary documented in this encounter [facility] Evaluation note Note Date & Type Note Facility Evaluation note Diagnosis Third trimester state, incidental documented in this encounter [facility] Evaluation note Note Date & Type Note Facility Evaluation note Diagnosis Third trimester state, incidental Excessive growth affecting management of in third trimester, single or unspecified fetus documented in this encounter [facility] Evaluation note Note Date & Type Note Facility Evaluation note Diagnosis Well woman exam with routine gynecological exam Routine gynecological examination documented in this encounter [facility] Summary [...] Specialty Diagnoses / Procedures Referred By Reagan t Referred To Contact Plastic Surgery Diagnoses Breast pain History of dimpling of breast skin Eri Valle R, DO [address] [facility] [address] [place] [address] Dulce Coronado MD [address] [place] [address] Referral ID Status Reason Start Date Expiration Date V isits Requested Visits Authorized [id number] Pending Review 09/14/2021 10/09/2022 1 1 Reason Comments Routine Visit Reason Comments Gynecologic Exam Care Teams (unrecognized sec tion and content) Director Of Content Marketing Relationship Specialty Start Date End Date Prema Guillen DO [address] [place] [address] PCP - General Family Medicine 09/25/21 Director Of Content Marketing Relationship Specialty Start Date End Date Prema Guillen DO [address] [place] [address] PCP - General Family Medicine 12/23/22 Director Of Content Marketing Relationship Specialty Start Date End Date Prema Guillen DO [address] [place] [address] PCP - General Family Medicine 12/23/22 Director Of Content Marketing Relationship Specialty Start Date End Date Prema Guillen DO [address] [place] [address] PCP - General Family Medicine 12/23/22 Director Of Content Marketing Relationship Specialty Start Date End Date Prema Guillen DO [address] [place] [address] PCP - General Family Medicine 12/23/22 INFORMATION SOURCE (unrecogn ized section and content) DATE CREATED AUTHOR 09/20/2022 [facility] DATE CREATED AUTHOR [facility] 12/03/2023 [facility] Special[facility] FOR RECORDS PERTAINING TO PATIENTS WHO ARE [...] BE BASED ON THE PRIMARY CLINICAL RECORDS. [facility] [employer] provides no warranty or guarantee of the accuracy or completeness of information in this document.
[2024-12-11 11:08] LABS: Age Gdln ACOG Testing Note (.); HPV Aptima Negative (Negative); IGP, Aptima HPV, rfx 16/18,45 Note (.)
== END 2024-12-08 19:54 | disposition home or self-care (01) ==
LOC: LAB 19:53
PROVIDERS: PCP Family Medicine; Visit Provider Obstetrics & Gynecology
DX: Z01.419 Encounter for gynecological examination (general) (routine) without abnormal findings (principal)
CPT/HCPCS: 87624; 88175